=== PATIENT | female | born 1955 | race Caucasian/White ===

== ENCOUNTER 2017-09-05 14:57 | Day surgery (SDC) | payer MEDICARE, OTHER ==
[~2017-09-05] VITALS: Ht 162.6 cm; Wt 78.5 kg
[~2017-09-05 14:57] MED LIST: ALBU90OI INH; ASPI81CH PO; Anti-Diarrhea2 MG; Aspirin EC81 MG PO; BUDE6HFA; CHOL10002 PO; DOCU100 PO; FERROUS SULFATE PO; FURO20 PO; GABA800 PO; Humalog100 UNIT/1 SC; INSUASPI SC; INSULANI SC; INSULANPEN SC; LEVO750 PO; LOSA25 PO; LOSA50 PO; MAGOXI400; METF500 PO; METO100ER PO; Metoprolol Tart50 MG PO; Norco 5-325 Ta1 EACH PO; OMEP40CA12 PO; ONDA4ODT PO; OXYC5 PO; Omeprazole20 M1; PIOG15 PO; Prozac20 MG PO; SPIRIVA RESPIMAT4 G1; TOCO400 PO; TOUJEO SOL300 UNIT/1; TOUJEO SOL300 UNIT/1 SQ; TRAZ100 PO; TRAZ50 PO; WARF1 PO; WARF5 PO; WATER PILL
[2017-10-24] MEDS ORDERED: BUDE6HFA INH (11:42)
[2017-10-24] MEDS ORDERED: INSDET100 (11:43)
== END 2017-09-05 17:05 | disposition home or self-care (01) ==
LOC: ORSCSDS 14:57
PROVIDERS: Ophthalmology
PROC: 08RK3JZ Replacement of Left Lens with Synthetic Substitute, Percutaneous Approach (ICD-10-PCS; principal; 2017-09-05 16:30)
DX: H25.12 Age-related nuclear cataract, left eye (principal); H21.81 Floppy iris syndrome; I10 Essential (primary) hypertension; J44.9 Chronic obstructive pulmonary disease, unspecified; Z99.81 Dependence on supplemental oxygen; E11.9 Type 2 diabetes mellitus without complications; Z79.899 Other long term (current) drug therapy; Z79.01 Long term (current) use of anticoagulants
CPT/HCPCS: 82947; J2250; J3010; J7040; V2632

== ENCOUNTER 2017-09-27 12:49 | Emergency (ER) | payer MEDICARE, OTHER ==
[~2017-09-27] VITALS: Ht 162.6 cm; Wt 78.5 kg
[2017-09-27 13:59] LABS: BASOPHILS ABSOLUTE AUTO 0.03 K/mm3 (0.00-0.23); BASOPHILS PERCENT AUTO 0 % (0-2); EOSINOPHILS ABSOLUTE AUTO 0.09 K/mm3 (0.00-0.68); EOSINOPHILS PERCENT AUTO 1 % (0-6); Hematocrit 28.5 % (33.0-51.0); Hemoglobin 9.2 g/dL (11.5-16.0); IMMATURE GRAN ABSOLUTE AUTO 0.03 K/mm3 (0.00-0.10); IMMATURE GRAN PERCENT AUTO 0 % (0-1); LYMPHOCYTES ABSOLUTE AUTO 1.27 K/mm3 (0.84-5.20); LYMPHOCYTES PERCENT AUTO 12 % (21-46); MONOCYTES ABSOLUTE AUTO 0.92 K/mm3 (0.16-1.47); MONOCYTES PERCENT AUTO 8 % (4-13); Mean Corpuscular HGB 28.6 pg (26.0-34.0); Mean Corpuscular HGB Conc 32.3 g/dL (31.5-36.5); Mean Corpuscular Volume 89 fL (80-100); Mean Platelet Volume 10.4 fL (9.1-12.4); NEUTROPHILS ABSOLUTE AUTO 8.57 K/mm3 (1.96-9.15); NEUTROPHILS PERCENT AUTO 79 % (41-73); Platelet Count 250 K/mm3 (150-400); RDW Coefficient Variation 13.2 % (11.7-14.2); Red Blood Cell Count 3.22 M/mm3 (3.80-5.20); White Blood Cell Count 10.91 K/mm3 (4.00-11.30)
[2017-09-27 14:13] LABS: Source, Urine Clean Catch
[2017-09-27 14:16] LABS: International Normalized Ratio 3.86; Prothrombin Time Results 41.9 Sec (9.7-11.5)
[2017-09-27 14:19] LABS: Appearance, Urine Clear (Clear); Blood, Urine 4+ (Neg); Color, Urine Yellow (P-Yellow); Glucose Qualitative, Urine 4+ (Neg); Ketones, Urine Neg (Neg); Leukocyte Esterase, Urine 1+ (Neg); Nitrite, Urine Neg (Neg); Protein, Urine 3+ (Neg); Specific Gravity, Urine 1.015 (1.003-1.022); Urobilinogen, Urine NORM (Normal)
[2017-09-27 14:21] LABS: Alanine Aminotransfer (ALT/SGP 12 U/L (12-78); Albumin, Blood 2.7 g/dL (3.4-5.0); Albumin/Globulin Ratio 0.6 (0.8-1.8); Alk Phos 59 U/L (50-136); Anion Gap 6 mmol/L (6-16); Aspartate Aminotrans (AST/SGOT 14 U/L (12-37); Bilirubin, Total 0.4 mg/dL (0.1-1.0); Blood Urea Nitrogen 18 mg/dL (8-24); Bun/Creatinine Ratio 16.2 (12.0-20.0); CO2, Blood 28 mmol/L (21-32); Calcium, Blood 8.2 mg/dL (8.5-10.1); Chloride, Blood 99 mmol/L (98-108); Creatinine, Blood 1.11 mg/dL (0.40-1.00); Globulin, Blood 4.3 g/dL (2.2-4.0); Glomerular Filtration Rate 53 (60-); Glucose, Blood 129 mg/dL (70-99); Potassium, Blood 4.8 mmol/L (3.5-5.5); Sodium, Blood 133 mmol/L (136-145); Troponin I <0.015 ng/mL (0.000-0.040)
[2017-09-27 14:29] LABS: Bilirubin, Urine 1+ (Neg)
[2017-09-27 14:31] LABS: Bacteria Few /hpf; Squamous Epithelial Cells Few /hpf (Few)
[2017-10-24] MEDS ORDERED: BUDE6HFA INH (11:42)
[2017-10-24] MEDS ORDERED: INSDET100 (11:43)
== END 2017-09-27 16:34 | disposition home or self-care (01) ==
LOC: ER 12:49
PROVIDERS: Physician Assistant
DX: R53.1 Weakness (principal); E11.9 Type 2 diabetes mellitus without complications; D64.9 Anemia, unspecified; Z87.891 Personal history of nicotine dependence; Z88.6 Allergy status to analgesic agent; Z88.0 Allergy status to penicillin; Z79.4 Long term (current) use of insulin; Z79.51 Long term (current) use of inhaled steroids; Z79.01 Long term (current) use of anticoagulants; Z79.899 Other long term (current) drug therapy
CPT/HCPCS: 71046; 80053; 81001; 82607; 82746; 84484; 85025; 85610; 87086; 93005; 93010; 99283

== ENCOUNTER 2017-10-13 22:24 | Emergency (ER) | payer MEDICARE, OTHER ==
[~2017-10-13] VITALS: Ht 162.6 cm; Wt 77.1 kg
[2017-10-24] MEDS ORDERED: BUDE6HFA INH (11:42)
[2017-10-24] MEDS ORDERED: INSDET100 (11:43)
== END 2017-10-14 00:42 | disposition home or self-care (01) ==
LOC: ER 22:24
DX: S79.911A Unspecified injury of right hip, initial encounter (principal); E11.9 Type 2 diabetes mellitus without complications; D64.9 Anemia, unspecified; Z87.891 Personal history of nicotine dependence; Z88.0 Allergy status to penicillin; Z88.8 Allergy status to other drugs, medicaments and biological substances; Z79.4 Long term (current) use of insulin; Z79.01 Long term (current) use of anticoagulants; Z79.51 Long term (current) use of inhaled steroids; Z79.899 Other long term (current) drug therapy; Z89.519 Acquired absence of unspecified leg below knee; W18.11XA Fall from or off toilet without subsequent striking against object, initial encounter
CPT/HCPCS: 73552; 99283

== ENCOUNTER 2017-10-14 13:06 | Observation (INO) | payer MEDICARE, OTHER ==
[~2017-10-14] VITALS: Ht 162.6 cm; Wt 82.2 kg
[2017-10-14 13:31] LABS: Hematocrit 26.3 % (33.0-51.0); Hemoglobin 8.6 g/dL (11.5-16.0); Mean Corpuscular HGB Conc 32.7 g/dL (31.5-36.5); Mean Platelet Volume 10.3 fL (9.1-12.4); Platelet Count 429 K/mm3 (150-400); RDW Coefficient Variation 14.3 % (11.7-14.2); RDW Standard Deviation 42.8 fL (35.1-46.3); Red Blood Cell Count 3.19 M/mm3 (3.80-5.20); White Blood Cell Count 16.48 K/mm3 (4.00-11.30)
[2017-10-14 13:37] LABS: Mean Corpuscular Volume 82 fL (80-100)
[2017-10-14 13:45] LABS: Albumin, Blood 2.2 g/dL (3.4-5.0); Albumin/Globulin Ratio 0.4 (0.8-1.8); Bilirubin, Total 0.5 mg/dL (0.1-1.0); Bun/Creatinine Ratio 27.8 (12.0-20.0); Calcium, Blood 8.5 mg/dL (8.5-10.1); Creatinine, Blood 1.08 mg/dL (0.40-1.00); Globulin, Blood 5.2 g/dL (2.2-4.0); Potassium, Blood 3.4 mmol/L (3.5-5.5); Total Protein, Blood 7.4 g/dL (6.4-8.2)
[2017-10-14 14:16] LABS: Appearance, Urine Hazy (Clear); Blood, Urine 5+ (Neg); Color, Urine Yellow (P-Yellow); Glucose Qualitative, Urine 3+ (Neg); Ketones, Urine 2+ (Neg); Leukocyte Esterase, Urine 1+ (Neg); Nitrite, Urine Neg (Neg); Protein, Urine 3+ (Neg); Urobilinogen, Urine 2+ (Normal)
[2017-10-14 14:22] LABS: BASOPHILS PERCENT MAN 0 % (0-2); EOSINOPHILS PERCENT MAN 0 % (0-6); LYMPHOCYTES ABSOLUTE MAN 0.32 K/mm3 (0.84-5.20); LYMPHOCYTES PERCENT MAN 2 % (21-46); MONOCYTES ABSOLUTE MAN 0.98 K/mm3 (0.16-1.47); MONOCYTES PERCENT MAN 6 % (4-13); NEUTROPHILS ABSOLUTE MAN 15.16 K/mm3 (1.96-9.15); SEG NEUTROPHILS PERCENT MAN 92 % (41-73); TOTAL CELLS COUNTED 100
[2017-10-14 14:28] LABS: Prothrombin Time Results >148.7 Sec (9.7-11.5)
[2017-10-14 14:34] LABS: International Normalized Ratio No Calc
[2017-10-14 14:38] LABS: Bilirubin, Urine 2+ (Neg)
[2017-10-14 14:39] LABS: Bacteria Many /hpf; Red Blood Cells, Urine 25-50 /hpf (0-2); Squamous Epithelial Cells Mod /hpf (Few)
[2017-10-14 14:40] LABS: Hyaline Casts 0-2 /lpf (0-2)
[2017-10-15 05:23] LABS: BASOPHILS ABSOLUTE AUTO 0.01 K/mm3 (0.00-0.23); BASOPHILS PERCENT AUTO 0 % (0-2); EOSINOPHILS ABSOLUTE AUTO 0.08 K/mm3 (0.00-0.68); EOSINOPHILS PERCENT AUTO 1 % (0-6); Hematocrit 22.6 % (33.0-51.0); Hemoglobin 7.1 g/dL (11.5-16.0); IMMATURE GRAN ABSOLUTE AUTO 0.11 K/mm3 (0.00-0.10); IMMATURE GRAN PERCENT AUTO 1 % (0-1); LYMPHOCYTES ABSOLUTE AUTO 0.64 K/mm3 (0.84-5.20); LYMPHOCYTES PERCENT AUTO 6 % (21-46); MONOCYTES ABSOLUTE AUTO 0.78 K/mm3 (0.16-1.47); MONOCYTES PERCENT AUTO 7 % (4-13); Mean Corpuscular HGB 26.3 pg (26.0-34.0); Mean Corpuscular HGB Conc 31.4 g/dL (31.5-36.5); Mean Corpuscular Volume 84 fL (80-100); Mean Platelet Volume 10.2 fL (9.1-12.4); NEUTROPHILS ABSOLUTE AUTO 10.05 K/mm3 (1.96-9.15); NEUTROPHILS PERCENT AUTO 86 % (41-73); Platelet Count 365 K/mm3 (150-400); RDW Coefficient Variation 14.4 % (11.7-14.2); RDW Standard Deviation 44.3 fL (35.1-46.3); White Blood Cell Count 11.67 K/mm3 (4.00-11.30)
[2017-10-15 05:36] LABS: International Normalized Ratio 2.1; Prothrombin Time Results 22.4 Sec (9.7-11.5)
[2017-10-15 06:19] LABS: Anion Gap 9 mmol/L (6-16); Blood Urea Nitrogen 29 mg/dL (8-24); Bun/Creatinine Ratio 34.9 (12.0-20.0); CO2, Blood 25 mmol/L (21-32); Calcium, Blood 7.9 mg/dL (8.5-10.1); Chloride, Blood 97 mmol/L (98-108); Creatinine, Blood 0.83 mg/dL (0.40-1.00); Glomerular Filtration Rate >60 (60-); Glucose, Blood 274 mg/dL (70-99); Potassium, Blood 3.5 mmol/L (3.5-5.5); Sodium, Blood 131 mmol/L (136-145)
[2017-10-16 05:29] LABS: BASOPHILS ABSOLUTE AUTO 0.02 K/mm3 (0.00-0.23); BASOPHILS PERCENT AUTO 0 % (0-2); EOSINOPHILS ABSOLUTE AUTO 0.11 K/mm3 (0.00-0.68); EOSINOPHILS PERCENT AUTO 1 % (0-6); Hematocrit 21.7 % (33.0-51.0); Hemoglobin 6.9 g/dL (11.5-16.0); IMMATURE GRAN ABSOLUTE AUTO 0.21 K/mm3 (0.00-0.10); IMMATURE GRAN PERCENT AUTO 2 % (0-1); LYMPHOCYTES ABSOLUTE AUTO 0.94 K/mm3 (0.84-5.20); LYMPHOCYTES PERCENT AUTO 9 % (21-46); MONOCYTES ABSOLUTE AUTO 0.83 K/mm3 (0.16-1.47); MONOCYTES PERCENT AUTO 8 % (4-13); Mean Corpuscular HGB 26.7 pg (26.0-34.0); Mean Corpuscular HGB Conc 31.8 g/dL (31.5-36.5); Mean Corpuscular Volume 84 fL (80-100); Mean Platelet Volume 10.6 fL (9.1-12.4); NEUTROPHILS ABSOLUTE AUTO 8.81 K/mm3 (1.96-9.15); NEUTROPHILS PERCENT AUTO 81 % (41-73); Platelet Count 342 K/mm3 (150-400); RDW Coefficient Variation 14.8 % (11.7-14.2); RDW Standard Deviation 45.1 fL (35.1-46.3); Red Blood Cell Count 2.58 M/mm3 (3.80-5.20); White Blood Cell Count 10.92 K/mm3 (4.00-11.30)
[2017-10-16 06:28] LABS: Alanine Aminotransfer (ALT/SGP 13 U/L (12-78); Albumin, Blood 1.6 g/dL (3.4-5.0); Albumin/Globulin Ratio 0.3 (0.8-1.8); Alk Phos 59 U/L (50-136); Anion Gap 8 mmol/L (6-16); Aspartate Aminotrans (AST/SGOT 15 U/L (12-37); Bilirubin, Total 0.2 mg/dL (0.1-1.0); Blood Urea Nitrogen 25 mg/dL (8-24); CO2, Blood 24 mmol/L (21-32); Calcium, Blood 7.9 mg/dL (8.5-10.1); Chloride, Blood 98 mmol/L (98-108); Creatinine, Blood 0.86 mg/dL (0.40-1.00); Globulin, Blood 4.7 g/dL (2.2-4.0); Glomerular Filtration Rate >60 (60-); Glucose, Blood 378 mg/dL (70-99); Potassium, Blood 3.7 mmol/L (3.5-5.5); Sodium, Blood 130 mmol/L (136-145); Total Protein, Blood 6.3 g/dL (6.4-8.2)
[2017-10-17 05:05] LABS: BASOPHILS ABSOLUTE AUTO 0.03 K/mm3 (0.00-0.23); BASOPHILS PERCENT AUTO 0 % (0-2); EOSINOPHILS ABSOLUTE AUTO 0.14 K/mm3 (0.00-0.68); EOSINOPHILS PERCENT AUTO 1 % (0-6); Hematocrit 25.1 % (33.0-51.0); Hemoglobin 8.1 g/dL (11.5-16.0); IMMATURE GRAN ABSOLUTE AUTO 0.28 K/mm3 (0.00-0.10); IMMATURE GRAN PERCENT AUTO 2 % (0-1); LYMPHOCYTES ABSOLUTE AUTO 1.22 K/mm3 (0.84-5.20); LYMPHOCYTES PERCENT AUTO 9 % (21-46); MONOCYTES ABSOLUTE AUTO 0.96 K/mm3 (0.16-1.47); MONOCYTES PERCENT AUTO 7 % (4-13); Mean Corpuscular HGB 26.7 pg (26.0-34.0); Mean Corpuscular HGB Conc 32.3 g/dL (31.5-36.5); Mean Corpuscular Volume 83 fL (80-100); Mean Platelet Volume 10.2 fL (9.1-12.4); NEUTROPHILS ABSOLUTE AUTO 10.49 K/mm3 (1.96-9.15); NEUTROPHILS PERCENT AUTO 80 % (41-73); Platelet Count 315 K/mm3 (150-400); RDW Coefficient Variation 15.1 % (11.7-14.2); RDW Standard Deviation 45.7 fL (35.1-46.3); Red Blood Cell Count 3.03 M/mm3 (3.80-5.20); White Blood Cell Count 13.12 K/mm3 (4.00-11.30)
[2017-10-17 05:30] LABS: Alanine Aminotransfer (ALT/SGP 14 U/L (12-78); Albumin, Blood 1.5 g/dL (3.4-5.0); Albumin/Globulin Ratio 0.3 (0.8-1.8); Alk Phos 68 U/L (50-136); Anion Gap 7 mmol/L (6-16); Aspartate Aminotrans (AST/SGOT 17 U/L (12-37); Bilirubin, Total 0.6 mg/dL (0.1-1.0); Blood Urea Nitrogen 27 mg/dL (8-24); Bun/Creatinine Ratio 35.2 (12.0-20.0); CO2, Blood 24 mmol/L (21-32); Calcium, Blood 7.9 mg/dL (8.5-10.1); Chloride, Blood 98 mmol/L (98-108); Creatinine, Blood 0.77 mg/dL (0.40-1.00); Globulin, Blood 4.7 g/dL (2.2-4.0); Glomerular Filtration Rate >60 (60-); Glucose, Blood 214 mg/dL (70-99); Potassium, Blood 3.9 mmol/L (3.5-5.5); Sodium, Blood 129 mmol/L (136-145); Total Protein, Blood 6.2 g/dL (6.4-8.2)
[2017-10-18 05:13] LABS: BASOPHILS ABSOLUTE AUTO 0.02 K/mm3 (0.00-0.23); BASOPHILS PERCENT AUTO 0 % (0-2); EOSINOPHILS ABSOLUTE AUTO 0.05 K/mm3 (0.00-0.68); EOSINOPHILS PERCENT AUTO 0 % (0-6); Hematocrit 22.6 % (33.0-51.0); Hemoglobin 7.4 g/dL (11.5-16.0); IMMATURE GRAN ABSOLUTE AUTO 0.23 K/mm3 (0.00-0.10); IMMATURE GRAN PERCENT AUTO 2 % (0-1); LYMPHOCYTES PERCENT AUTO 6 % (21-46); MONOCYTES PERCENT AUTO 7 % (4-13); Mean Corpuscular HGB 26.7 pg (26.0-34.0); Mean Corpuscular HGB Conc 32.7 g/dL (31.5-36.5); Mean Corpuscular Volume 82 fL (80-100); Mean Platelet Volume 10.2 fL (9.1-12.4); NEUTROPHILS ABSOLUTE AUTO 12.06 K/mm3 (1.96-9.15); NEUTROPHILS PERCENT AUTO 85 % (41-73); NRBC ABSOLUTE 0.02 K/mm3 (0.00-0.02); NRBC Auto 0.1 /100 WBC (0.0-0.2); Platelet Count 314 K/mm3 (150-400); RDW Coefficient Variation 14.6 % (11.7-14.2); RDW Standard Deviation 43.5 fL (35.1-46.3); Red Blood Cell Count 2.77 M/mm3 (3.80-5.20); White Blood Cell Count 14.26 K/mm3 (4.00-11.30)
[2017-10-18 05:27] LABS: International Normalized Ratio 1.39; Prothrombin Time Results 14.6 Sec (9.7-11.5)
[2017-10-18 14:16] LABS: Stool Occult Blood Guaiac 1 Pos (Neg)
[2017-10-19 07:20] LABS: Stool Occult Blood Guaiac 1 Pos (Neg)
[2017-10-19] MEDS ORDERED: INSDET100 SC (11:00)
[2017-10-19] MEDS ORDERED: ACET325 PO (11:01)
[2017-10-19] MEDS ORDERED: LIDOCARE1 EACH TOP (11:02)
[2017-10-19] MEDS ORDERED: INSU100I6 SC (11:03)
[2017-10-19] MEDS ORDERED: LEVFLO500 PO (11:04)
[2017-10-24] MEDS ORDERED: BUDE6HFA INH (11:42)
[2017-10-24] MEDS ORDERED: INSDET100 (11:43)
== END 2017-10-19 12:46 | disposition home or self-care (01) ==
LOC: ER 13:06 → MEDS 13:07
PROVIDERS: Internal Medicine; Internal Medicine Gastroenterology
DX: D64.9 Anemia, unspecified (principal); N17.9 Acute kidney failure, unspecified; D68.32 Hemorrhagic disorder due to extrinsic circulating anticoagulants; F11.90 Opioid use, unspecified, uncomplicated; T45.515A Adverse effect of anticoagulants, initial encounter; E86.0 Dehydration; N39.0 Urinary tract infection, site not specified; I10 Essential (primary) hypertension; E66.9 Obesity, unspecified; J44.9 Chronic obstructive pulmonary disease, unspecified; E78.00 Pure hypercholesterolemia, unspecified; D72.829 Elevated white blood cell count, unspecified; R41.82 Altered mental status, unspecified; R29.6 Repeated falls; M65.9 Synovitis and tenosynovitis, unspecified; G47.33 Obstructive sleep apnea (adult) (pediatric); I51.81 Takotsubo syndrome; E11.51 Type 2 diabetes mellitus with diabetic peripheral angiopathy without gangrene; Z89.611 Acquired absence of right leg above knee; Z85.528 Personal history of other malignant neoplasm of kidney; Z98.890 Other specified postprocedural states; Z87.730 Personal history of (corrected) cleft lip and palate; Z98.41 Cataract extraction status, right eye; Z98.42 Cataract extraction status, left eye; Z88.0 Allergy status to penicillin; Z79.899 Other long term (current) drug therapy; Z79.4 Long term (current) use of insulin; Z87.891 Personal history of nicotine dependence; Z86.73 Personal history of transient ischemic attack (TIA), and cerebral infarction without residual deficits; Z92.21 Personal history of antineoplastic chemotherapy; Z88.8 Allergy status to other drugs, medicaments and biological substances; Z79.01 Long term (current) use of anticoagulants; Z74.09 Other reduced mobility; Z79.2 Long term (current) use of antibiotics; Z85.038 Personal history of other malignant neoplasm of large intestine; Z68.29 Body mass index [BMI] 29.0-29.9, adult; Z96.1 Presence of intraocular lens
CPT/HCPCS: 36415; 36430; 70450; 80048; 80053; 81001; 82270; 82272; 82728; 82947; 83540; 83550; 85025; 85610; 85730; 86850; 86900; 86901; 86923; 87070; 87075; 87076; 87081; 87086; 87147; 87185; 87205; 93005; 93010; 94640; 94760; 97110; 97162; 97166; 97530; 97535; 99285; G0378; G8978; G8979; G8987; G8988; J0696; J1815; J7030; P9016; P9041

== ENCOUNTER → 2018-04-16 | Outpatient (CLI) | payer MEDICARE, OTHER ==
[~2018-04-16] MED LIST changes: +ACET325 PO; +BUDE6HFA INH; +INSDET100; +INSDET100 SC; +INSU100I6 SC; +LEVFLO500 PO; +LIDOCARE1 EACH TOP; +LOSA25; +PIOG15
== END ==
LOC: LAB SHORT 15:30 → LAB 15:30
DX: L89.220 Pressure ulcer of left hip, unstageable (principal); L89.520 Pressure ulcer of left ankle, unstageable; L89.892 Pressure ulcer of other site, stage 2
CPT/HCPCS: 87070; 87075; 87077; 87147; 87186; 87205

== ENCOUNTER 2018-04-23 12:19 | Day surgery (SDC) | payer MEDICARE, OTHER ==
[~2018-04-23] VITALS: Ht 162.6 cm; Wt 79.4 kg
[~2018-04-23 12:19] MED LIST changes: -LOSA25; -PIOG15
[2018-04-23] MEDS ORDERED: LOSA25 (13:15)
[2018-04-23] MEDS ORDERED: PIOG15 (13:20)
== END 2018-04-23 16:17 | disposition home or self-care (01) ==
LOC: ORSCSDS 12:19
DX: D50.9 Iron deficiency anemia, unspecified (principal); K22.70 Barrett's esophagus without dysplasia; K21.9 Gastro-esophageal reflux disease without esophagitis; Q27.33 Arteriovenous malformation of digestive system vessel; I10 Essential (primary) hypertension; I25.10 Atherosclerotic heart disease of native coronary artery without angina pectoris; J44.9 Chronic obstructive pulmonary disease, unspecified; F17.210 Nicotine dependence, cigarettes, uncomplicated; G47.33 Obstructive sleep apnea (adult) (pediatric); I11.9 Hypertensive heart disease without heart failure; Z86.73 Personal history of transient ischemic attack (TIA), and cerebral infarction without residual deficits; E11.9 Type 2 diabetes mellitus without complications; Z79.899 Other long term (current) drug therapy
CPT/HCPCS: 82947; J7120

== ENCOUNTER 2018-04-30 00:01 | Day surgery (SDC) | payer MEDICARE, OTHER ==
[~2018-04-30 00:01] MED LIST changes: +LOSA25; +PIOG15
== END 2018-04-30 22:46 | disposition home or self-care (01) ==
LOC: WOUND 00:01
PROC: 0HBNXZZ Excision of Left Foot Skin, External Approach (ICD-10-PCS; principal; 2018-04-30)
PROC: 0HBJXZZ Excision of Left Upper Leg Skin, External Approach (ICD-10-PCS; principal; 2018-04-30)
PROC: 0HBLXZZ Excision of Left Lower Leg Skin, External Approach (ICD-10-PCS; principal; 2018-04-30)
DX: E11.621 Type 2 diabetes mellitus with foot ulcer (principal); E11.622 Type 2 diabetes mellitus with other skin ulcer; L97.522 Non-pressure chronic ulcer of other part of left foot with fat layer exposed; L97.322 Non-pressure chronic ulcer of left ankle with fat layer exposed; L97.822 Non-pressure chronic ulcer of other part of left lower leg with fat layer exposed; E11.40 Type 2 diabetes mellitus with diabetic neuropathy, unspecified; I10 Essential (primary) hypertension; I63.9 Cerebral infarction, unspecified; J44.9 Chronic obstructive pulmonary disease, unspecified
CPT/HCPCS: G0463

== ENCOUNTER 2018-05-28 00:05 | Day surgery (SDC) | payer MEDICARE, OTHER | END 2018-05-28 23:12 | disposition home or self-care (01) | LOC: WOUND 00:05 | PROC: 0HBNXZZ Excision of Left Foot Skin, External Approach (ICD-10-PCS; principal; 2018-05-28) | DX: E11.621 Type 2 diabetes mellitus with foot ulcer (principal); L97.522 Non-pressure chronic ulcer of other part of left foot with fat layer exposed; L89.323 Pressure ulcer of left buttock, stage 3; E11.40 Type 2 diabetes mellitus with diabetic neuropathy, unspecified; I10 Essential (primary) hypertension ==

== ENCOUNTER 2018-07-14 01:36 | Day surgery (SDC) | payer MEDICARE, OTHER | END 2018-07-14 22:45 | disposition home or self-care (01) | LOC: WOUND 01:36 | DX: E11.621 Type 2 diabetes mellitus with foot ulcer (principal); L89.323 Pressure ulcer of left buttock, stage 3; L97.522 Non-pressure chronic ulcer of other part of left foot with fat layer exposed; Z86.718 Personal history of other venous thrombosis and embolism; Z89.511 Acquired absence of right leg below knee; E11.40 Type 2 diabetes mellitus with diabetic neuropathy, unspecified; Z79.01 Long term (current) use of anticoagulants; I70.229 Atherosclerosis of native arteries of extremities with rest pain, unspecified extremity; R60.9 Edema, unspecified; I10 Essential (primary) hypertension; Z22.322 Carrier or suspected carrier of Methicillin resistant Staphylococcus aureus; Z88.0 Allergy status to penicillin; Z88.6 Allergy status to analgesic agent ==

== ENCOUNTER 2018-07-28 09:15 | Day surgery (SDC) | payer MEDICARE, OTHER | END 2018-07-28 22:43 | disposition home or self-care (01) | LOC: WOUND 09:15 | DX: E11.621 Type 2 diabetes mellitus with foot ulcer (principal); L89.323 Pressure ulcer of left buttock, stage 3; L97.522 Non-pressure chronic ulcer of other part of left foot with fat layer exposed; Z86.718 Personal history of other venous thrombosis and embolism; I73.9 Peripheral vascular disease, unspecified; Z89.511 Acquired absence of right leg below knee; E11.40 Type 2 diabetes mellitus with diabetic neuropathy, unspecified; Z79.01 Long term (current) use of anticoagulants; R60.9 Edema, unspecified; I10 Essential (primary) hypertension; Z22.322 Carrier or suspected carrier of Methicillin resistant Staphylococcus aureus; Z88.0 Allergy status to penicillin; Z88.6 Allergy status to analgesic agent | CPT/HCPCS: G0463 ==

== ENCOUNTER 2018-08-04 09:15 | Day surgery (SDC) | payer MEDICARE, OTHER | END 2018-08-04 22:43 | disposition home or self-care (01) | LOC: WOUND 09:15 | DX: E11.621 Type 2 diabetes mellitus with foot ulcer (principal); L89.323 Pressure ulcer of left buttock, stage 3; L97.522 Non-pressure chronic ulcer of other part of left foot with fat layer exposed; E11.40 Type 2 diabetes mellitus with diabetic neuropathy, unspecified; I70.229 Atherosclerosis of native arteries of extremities with rest pain, unspecified extremity; R60.9 Edema, unspecified; I10 Essential (primary) hypertension; M86.9 Osteomyelitis, unspecified; Z86.718 Personal history of other venous thrombosis and embolism; Z22.322 Carrier or suspected carrier of Methicillin resistant Staphylococcus aureus; Z89.511 Acquired absence of right leg below knee; Z79.01 Long term (current) use of anticoagulants ==

== ENCOUNTER 2018-08-18 09:00 | Day surgery (SDC) | payer MEDICARE, OTHER | END 2018-08-18 22:51 | disposition home or self-care (01) | LOC: WOUND 09:00 | PROC: 0HBNXZZ Excision of Left Foot Skin, External Approach (ICD-10-PCS; principal; 2018-08-18) | PROC: 0HBLXZZ Excision of Left Lower Leg Skin, External Approach (ICD-10-PCS; principal; 2018-08-18) | DX: E11.621 Type 2 diabetes mellitus with foot ulcer (principal); E11.622 Type 2 diabetes mellitus with other skin ulcer; L97.522 Non-pressure chronic ulcer of other part of left foot with fat layer exposed; L97.822 Non-pressure chronic ulcer of other part of left lower leg with fat layer exposed; L89.323 Pressure ulcer of left buttock, stage 3; Z86.718 Personal history of other venous thrombosis and embolism; I73.9 Peripheral vascular disease, unspecified; Z89.511 Acquired absence of right leg below knee; E11.40 Type 2 diabetes mellitus with diabetic neuropathy, unspecified ==

== ENCOUNTER 2018-08-25 09:15 | Day surgery (SDC) | payer MEDICARE, OTHER | END 2018-08-25 23:15 | disposition home or self-care (01) | LOC: WOUND 09:15 | DX: E11.621 Type 2 diabetes mellitus with foot ulcer (principal); L97.522 Non-pressure chronic ulcer of other part of left foot with fat layer exposed; L89.323 Pressure ulcer of left buttock, stage 3; Z86.718 Personal history of other venous thrombosis and embolism; Z89.511 Acquired absence of right leg below knee; E11.40 Type 2 diabetes mellitus with diabetic neuropathy, unspecified; Z79.01 Long term (current) use of anticoagulants; I70.229 Atherosclerosis of native arteries of extremities with rest pain, unspecified extremity; R60.9 Edema, unspecified; I10 Essential (primary) hypertension; Z22.322 Carrier or suspected carrier of Methicillin resistant Staphylococcus aureus; Z88.0 Allergy status to penicillin; Z88.6 Allergy status to analgesic agent; Z79.4 Long term (current) use of insulin ==

== ENCOUNTER 2018-09-01 09:30 | Day surgery (SDC) | payer MEDICARE, OTHER | END 2018-09-01 22:49 | disposition home or self-care (01) | LOC: WOUND 09:30 | DX: I70.245 Atherosclerosis of native arteries of left leg with ulceration of other part of foot (principal); I70.243 Atherosclerosis of native arteries of left leg with ulceration of ankle; E11.621 Type 2 diabetes mellitus with foot ulcer; E11.622 Type 2 diabetes mellitus with other skin ulcer; L97.522 Non-pressure chronic ulcer of other part of left foot with fat layer exposed; L97.322 Non-pressure chronic ulcer of left ankle with fat layer exposed; L89.323 Pressure ulcer of left buttock, stage 3; L92.8 Other granulomatous disorders of the skin and subcutaneous tissue; R60.9 Edema, unspecified; M77.32 Calcaneal spur, left foot; Z86.718 Personal history of other venous thrombosis and embolism; Z89.511 Acquired absence of right leg below knee; E11.40 Type 2 diabetes mellitus with diabetic neuropathy, unspecified; Z79.01 Long term (current) use of anticoagulants; I70.229 Atherosclerosis of native arteries of extremities with rest pain, unspecified extremity; B95.62 Methicillin resistant Staphylococcus aureus infection as the cause of diseases classified elsewhere; I10 Essential (primary) hypertension; Z99.3 Dependence on wheelchair; Z89.611 Acquired absence of right leg above knee ==

== ENCOUNTER 2018-09-08 09:45 | Day surgery (SDC) | payer MEDICARE, OTHER | END 2018-09-08 22:48 | disposition home or self-care (01) | LOC: WOUND 09:45 | PROC: 0HBNXZZ Excision of Left Foot Skin, External Approach (ICD-10-PCS; principal; 2018-09-08) | DX: E11.621 Type 2 diabetes mellitus with foot ulcer (principal); L97.522 Non-pressure chronic ulcer of other part of left foot with fat layer exposed; L89.323 Pressure ulcer of left buttock, stage 3; Z86.718 Personal history of other venous thrombosis and embolism; I10 Essential (primary) hypertension; E11.40 Type 2 diabetes mellitus with diabetic neuropathy, unspecified; I70.229 Atherosclerosis of native arteries of extremities with rest pain, unspecified extremity; R60.9 Edema, unspecified ==

== ENCOUNTER 2018-09-11 14:47 | Day surgery (SDC) | payer MEDICARE, OTHER ==
[~2018-09-11] VITALS: Ht 162.6 cm; Wt 73.0 kg
[2018-09-11] MEDS ORDERED: FISH OIL + D31 EACH PO (15:08)
[2018-09-11] MEDS ORDERED: Apple Cider Vi300 MG PO (15:09)
[2018-09-11] MEDS ORDERED: Cinnamon500 MG PO (15:09)
--- NOTE | 2018-09-11 17:32 | NUR ---
09/11/18 1732 Boris Kurtz LATE ENTRY NARRATIVE PATIENT IS WC BOUND AND RESTING IN HER OWN WC IN SDU. PATIENT VSS, TOLERATING PO FLUIDS AND COOKIES WELL. DISCHARGE INSTRUCTIONS REVIEWED WITH PATIENT, NO QUESTIONS AT THIS TIME. PATIENT'S RIDE CALLED AND NURSE ASSISTED PATIENT OUT TO TRANSPORT.
== END 2018-09-11 16:20 | disposition home or self-care (01) ==
LOC: ORSCSDS 14:47
PROVIDERS: Ophthalmology
PROC: 08RK3JZ Replacement of Left Lens with Synthetic Substitute, Percutaneous Approach (ICD-10-PCS; principal; 2018-09-11 16:30)
DX: H25.11 Age-related nuclear cataract, right eye (principal); H21.81 Floppy iris syndrome; I10 Essential (primary) hypertension; E11.9 Type 2 diabetes mellitus without complications; J44.9 Chronic obstructive pulmonary disease, unspecified; G47.33 Obstructive sleep apnea (adult) (pediatric); Z87.891 Personal history of nicotine dependence; I25.2 Old myocardial infarction; Z86.73 Personal history of transient ischemic attack (TIA), and cerebral infarction without residual deficits; Z79.4 Long term (current) use of insulin; Z79.899 Other long term (current) drug therapy
CPT/HCPCS: 82947; J0360; J2001; J2250; J3010; J7120; V2632

== ENCOUNTER → 2018-09-24 | Outpatient (CLI) | payer MEDICARE, OTHER ==
[~2018-09-24] MED LIST changes: +Apple Cider Vi300 MG PO; +Cinnamon500 MG PO; +FISH OIL + D31 EACH PO
== END | disposition home or self-care (01) ==
LOC: LAB HH 13:30
DX: L89.523 Pressure ulcer of left ankle, stage 3 (principal)
CPT/HCPCS: 87070; 87147; 87205

== ENCOUNTER 2018-10-06 00:40 | Day surgery (SDC) | payer MEDICARE, OTHER | END 2018-10-06 22:53 | disposition home or self-care (01) | LOC: WOUND 00:40 | DX: E11.621 Type 2 diabetes mellitus with foot ulcer (principal); M86.672 Other chronic osteomyelitis, left ankle and foot; L97.522 Non-pressure chronic ulcer of other part of left foot with fat layer exposed; L89.323 Pressure ulcer of left buttock, stage 3; Z86.718 Personal history of other venous thrombosis and embolism; Z89.511 Acquired absence of right leg below knee; E11.40 Type 2 diabetes mellitus with diabetic neuropathy, unspecified; Z79.4 Long term (current) use of insulin; Z79.01 Long term (current) use of anticoagulants; I70.229 Atherosclerosis of native arteries of extremities with rest pain, unspecified extremity; R60.9 Edema, unspecified; I10 Essential (primary) hypertension; Z22.322 Carrier or suspected carrier of Methicillin resistant Staphylococcus aureus; Z88.0 Allergy status to penicillin; Z88.6 Allergy status to analgesic agent ==

== ENCOUNTER 2018-10-13 00:44 | Day surgery (SDC) | payer MEDICARE, OTHER | END 2018-10-13 22:46 | disposition home or self-care (01) | LOC: WOUND 00:44 | DX: E11.621 Type 2 diabetes mellitus with foot ulcer (principal); L97.522 Non-pressure chronic ulcer of other part of left foot with fat layer exposed; L89.323 Pressure ulcer of left buttock, stage 3; E11.69 Type 2 diabetes mellitus with other specified complication; M06.9 Rheumatoid arthritis, unspecified; E11.40 Type 2 diabetes mellitus with diabetic neuropathy, unspecified; D64.9 Anemia, unspecified; J44.9 Chronic obstructive pulmonary disease, unspecified; G47.30 Sleep apnea, unspecified; I25.10 Atherosclerotic heart disease of native coronary artery without angina pectoris; I10 Essential (primary) hypertension; M86.672 Other chronic osteomyelitis, left ankle and foot; I70.229 Atherosclerosis of native arteries of extremities with rest pain, unspecified extremity; Z22.322 Carrier or suspected carrier of Methicillin resistant Staphylococcus aureus; Z86.718 Personal history of other venous thrombosis and embolism; Z89.511 Acquired absence of right leg below knee; Z79.01 Long term (current) use of anticoagulants | CPT/HCPCS: G0463 ==

== ENCOUNTER 2018-10-20 00:40 | Day surgery (SDC) | payer MEDICARE, OTHER | END 2018-10-20 22:51 | disposition home or self-care (01) | LOC: WOUND 00:40 | DX: E11.621 Type 2 diabetes mellitus with foot ulcer (principal); E11.622 Type 2 diabetes mellitus with other skin ulcer; L97.525 Non-pressure chronic ulcer of other part of left foot with muscle involvement without evidence of necrosis; L97.322 Non-pressure chronic ulcer of left ankle with fat layer exposed; L98.419 Non-pressure chronic ulcer of buttock with unspecified severity; E11.40 Type 2 diabetes mellitus with diabetic neuropathy, unspecified; I10 Essential (primary) hypertension; I25.10 Atherosclerotic heart disease of native coronary artery without angina pectoris; J44.9 Chronic obstructive pulmonary disease, unspecified; G47.30 Sleep apnea, unspecified; D64.9 Anemia, unspecified; Z86.718 Personal history of other venous thrombosis and embolism ==

== ENCOUNTER 2018-10-27 00:11 | Day surgery (SDC) | payer MEDICARE, OTHER | END 2018-10-27 23:20 | disposition home or self-care (01) | LOC: WOUND 00:11 | DX: E11.621 Type 2 diabetes mellitus with foot ulcer (principal); E11.622 Type 2 diabetes mellitus with other skin ulcer; L97.323 Non-pressure chronic ulcer of left ankle with necrosis of muscle; L97.522 Non-pressure chronic ulcer of other part of left foot with fat layer exposed; L98.411 Non-pressure chronic ulcer of buttock limited to breakdown of skin; L89.323 Pressure ulcer of left buttock, stage 3; E11.40 Type 2 diabetes mellitus with diabetic neuropathy, unspecified; I70.229 Atherosclerosis of native arteries of extremities with rest pain, unspecified extremity; I25.119 Atherosclerotic heart disease of native coronary artery with unspecified angina pectoris; I10 Essential (primary) hypertension; J44.9 Chronic obstructive pulmonary disease, unspecified; M86.672 Other chronic osteomyelitis, left ankle and foot; D64.9 Anemia, unspecified; G47.30 Sleep apnea, unspecified; Z86.718 Personal history of other venous thrombosis and embolism; Z89.511 Acquired absence of right leg below knee; Z79.01 Long term (current) use of anticoagulants | CPT/HCPCS: G0463 ==

== ENCOUNTER 2018-11-03 09:00 | Day surgery (SDC) | payer MEDICARE, OTHER | END 2018-11-03 22:52 | disposition home or self-care (01) | LOC: WOUND 09:00 | DX: E11.621 Type 2 diabetes mellitus with foot ulcer (principal); E11.622 Type 2 diabetes mellitus with other skin ulcer; L97.525 Non-pressure chronic ulcer of other part of left foot with muscle involvement without evidence of necrosis; L97.322 Non-pressure chronic ulcer of left ankle with fat layer exposed; E11.69 Type 2 diabetes mellitus with other specified complication; L89.323 Pressure ulcer of left buttock, stage 3; M86.672 Other chronic osteomyelitis, left ankle and foot; E11.40 Type 2 diabetes mellitus with diabetic neuropathy, unspecified; E11.51 Type 2 diabetes mellitus with diabetic peripheral angiopathy without gangrene; I70.229 Atherosclerosis of native arteries of extremities with rest pain, unspecified extremity; I10 Essential (primary) hypertension; I25.10 Atherosclerotic heart disease of native coronary artery without angina pectoris; J44.9 Chronic obstructive pulmonary disease, unspecified; D64.9 Anemia, unspecified; Z86.718 Personal history of other venous thrombosis and embolism; Z89.511 Acquired absence of right leg below knee; Z79.01 Long term (current) use of anticoagulants ==

== ENCOUNTER 2018-11-17 08:35 | Day surgery (SDC) | payer MEDICARE, OTHER | END 2018-11-17 22:51 | disposition home or self-care (01) | LOC: WOUND 08:35 | DX: E11.621 Type 2 diabetes mellitus with foot ulcer (principal); L97.522 Non-pressure chronic ulcer of other part of left foot with fat layer exposed; L89.323 Pressure ulcer of left buttock, stage 3; L89.312 Pressure ulcer of right buttock, stage 2; E11.622 Type 2 diabetes mellitus with other skin ulcer; L97.822 Non-pressure chronic ulcer of other part of left lower leg with fat layer exposed; E11.51 Type 2 diabetes mellitus with diabetic peripheral angiopathy without gangrene; E11.40 Type 2 diabetes mellitus with diabetic neuropathy, unspecified; I70.229 Atherosclerosis of native arteries of extremities with rest pain, unspecified extremity; J44.9 Chronic obstructive pulmonary disease, unspecified; G47.30 Sleep apnea, unspecified; I25.10 Atherosclerotic heart disease of native coronary artery without angina pectoris; I10 Essential (primary) hypertension; M06.9 Rheumatoid arthritis, unspecified; Z86.718 Personal history of other venous thrombosis and embolism | CPT/HCPCS: G0463 ==

== ENCOUNTER 2018-11-24 08:40 | Day surgery (SDC) | payer MEDICARE, OTHER | END 2018-11-24 23:10 | disposition home or self-care (01) | LOC: WOUND 08:40 | DX: E11.621 Type 2 diabetes mellitus with foot ulcer (principal); E11.622 Type 2 diabetes mellitus with other skin ulcer; L97.525 Non-pressure chronic ulcer of other part of left foot with muscle involvement without evidence of necrosis; L97.321 Non-pressure chronic ulcer of left ankle limited to breakdown of skin; L89.323 Pressure ulcer of left buttock, stage 3; L89.312 Pressure ulcer of right buttock, stage 2; E11.69 Type 2 diabetes mellitus with other specified complication; M86.672 Other chronic osteomyelitis, left ankle and foot; E11.51 Type 2 diabetes mellitus with diabetic peripheral angiopathy without gangrene; I70.229 Atherosclerosis of native arteries of extremities with rest pain, unspecified extremity; E11.40 Type 2 diabetes mellitus with diabetic neuropathy, unspecified; I10 Essential (primary) hypertension; Z86.718 Personal history of other venous thrombosis and embolism; Z79.01 Long term (current) use of anticoagulants; Z22.322 Carrier or suspected carrier of Methicillin resistant Staphylococcus aureus; Z89.511 Acquired absence of right leg below knee | CPT/HCPCS: 82947 ==

== ENCOUNTER 2018-12-01 09:00 | Day surgery (SDC) | payer MEDICARE, OTHER | END 2018-12-01 22:48 | disposition home or self-care (01) | LOC: WOUND 09:00 | DX: E11.621 Type 2 diabetes mellitus with foot ulcer (principal); L97.522 Non-pressure chronic ulcer of other part of left foot with fat layer exposed; E11.622 Type 2 diabetes mellitus with other skin ulcer; L97.322 Non-pressure chronic ulcer of left ankle with fat layer exposed; L97.822 Non-pressure chronic ulcer of other part of left lower leg with fat layer exposed; L89.323 Pressure ulcer of left buttock, stage 3; L89.312 Pressure ulcer of right buttock, stage 2; M86.672 Other chronic osteomyelitis, left ankle and foot; E11.40 Type 2 diabetes mellitus with diabetic neuropathy, unspecified; I70.229 Atherosclerosis of native arteries of extremities with rest pain, unspecified extremity; I10 Essential (primary) hypertension; Z86.718 Personal history of other venous thrombosis and embolism; Z89.511 Acquired absence of right leg below knee; Z79.01 Long term (current) use of anticoagulants; Z22.322 Carrier or suspected carrier of Methicillin resistant Staphylococcus aureus ==

== ENCOUNTER 2018-12-08 00:14 | Day surgery (SDC) | payer MEDICARE, OTHER | END 2018-12-08 23:04 | disposition home or self-care (01) | LOC: WOUND 00:14 | DX: E11.621 Type 2 diabetes mellitus with foot ulcer (principal); L97.522 Non-pressure chronic ulcer of other part of left foot with fat layer exposed; L97.322 Non-pressure chronic ulcer of left ankle with fat layer exposed; L89.323 Pressure ulcer of left buttock, stage 3; L89.312 Pressure ulcer of right buttock, stage 2; M86.672 Other chronic osteomyelitis, left ankle and foot; E11.51 Type 2 diabetes mellitus with diabetic peripheral angiopathy without gangrene; I70.229 Atherosclerosis of native arteries of extremities with rest pain, unspecified extremity; E11.36 Type 2 diabetes mellitus with diabetic cataract; J44.9 Chronic obstructive pulmonary disease, unspecified; G47.30 Sleep apnea, unspecified; I25.119 Atherosclerotic heart disease of native coronary artery with unspecified angina pectoris; I10 Essential (primary) hypertension; M06.9 Rheumatoid arthritis, unspecified; E11.40 Type 2 diabetes mellitus with diabetic neuropathy, unspecified; Z86.718 Personal history of other venous thrombosis and embolism ==

== ENCOUNTER 2018-12-15 09:00 | Day surgery (SDC) | payer MEDICARE, OTHER | END 2018-12-15 22:45 | disposition home or self-care (01) | LOC: WOUND 09:00 | DX: E11.621 Type 2 diabetes mellitus with foot ulcer (principal); E11.622 Type 2 diabetes mellitus with other skin ulcer; L97.322 Non-pressure chronic ulcer of left ankle with fat layer exposed; L97.529 Non-pressure chronic ulcer of other part of left foot with unspecified severity; L89.323 Pressure ulcer of left buttock, stage 3; L89.312 Pressure ulcer of right buttock, stage 2; E11.51 Type 2 diabetes mellitus with diabetic peripheral angiopathy without gangrene; I70.229 Atherosclerosis of native arteries of extremities with rest pain, unspecified extremity; E11.69 Type 2 diabetes mellitus with other specified complication; M86.672 Other chronic osteomyelitis, left ankle and foot; E11.40 Type 2 diabetes mellitus with diabetic neuropathy, unspecified; I10 Essential (primary) hypertension; J44.9 Chronic obstructive pulmonary disease, unspecified; I25.10 Atherosclerotic heart disease of native coronary artery without angina pectoris; D64.9 Anemia, unspecified; G47.33 Obstructive sleep apnea (adult) (pediatric); Z86.718 Personal history of other venous thrombosis and embolism; Z89.511 Acquired absence of right leg below knee; Z79.899 Other long term (current) drug therapy; Z79.01 Long term (current) use of anticoagulants; Z22.322 Carrier or suspected carrier of Methicillin resistant Staphylococcus aureus | CPT/HCPCS: G0463 ==

== ENCOUNTER 2018-12-29 09:00 | Day surgery (SDC) | payer MEDICARE, OTHER ==
[~2018-12-29 09:00] MED LIST changes: -FERROUS SULFATE PO; +Ferrous Sulfat325 M2 PO; +GABA300 PO; +Humalog100 UNIT/3 SC; -INSU100I6 SC; -LOSA25; +METO100 PO; -METO100ER PO
== END 2018-12-29 22:53 | disposition home or self-care (01) ==
LOC: WOUND 09:00
DX: E11.622 Type 2 diabetes mellitus with other skin ulcer (principal); L97.822 Non-pressure chronic ulcer of other part of left lower leg with fat layer exposed; L89.323 Pressure ulcer of left buttock, stage 3; L89.312 Pressure ulcer of right buttock, stage 2; E11.51 Type 2 diabetes mellitus with diabetic peripheral angiopathy without gangrene; I70.229 Atherosclerosis of native arteries of extremities with rest pain, unspecified extremity; E11.69 Type 2 diabetes mellitus with other specified complication; M86.672 Other chronic osteomyelitis, left ankle and foot; E11.621 Type 2 diabetes mellitus with foot ulcer; E11.40 Type 2 diabetes mellitus with diabetic neuropathy, unspecified; I10 Essential (primary) hypertension; Z86.718 Personal history of other venous thrombosis and embolism; Z89.511 Acquired absence of right leg below knee; Z22.322 Carrier or suspected carrier of Methicillin resistant Staphylococcus aureus
CPT/HCPCS: G0463

== ENCOUNTER 2019-01-03 15:21 | Observation (INO) | payer MEDICARE, OTHER ==
[~2019-01-03] VITALS: Ht 162.6 cm; Wt 70.6 kg
[2019-01-03 15:55] LABS: BASOPHILS ABSOLUTE AUTO 0.04 K/mm3 (0.00-0.23); BASOPHILS PERCENT AUTO 1 % (0-2); EOSINOPHILS ABSOLUTE AUTO 0.18 K/mm3 (0.00-0.68); EOSINOPHILS PERCENT AUTO 3 % (0-6); Hematocrit 33.8 % (33.0-51.0); Hemoglobin 10.9 g/dL (11.5-16.0); IMMATURE GRAN ABSOLUTE AUTO 0.02 K/mm3 (0.00-0.10); IMMATURE GRAN PERCENT AUTO 0 % (0-1); LYMPHOCYTES ABSOLUTE AUTO 1.54 K/mm3 (0.84-5.20); LYMPHOCYTES PERCENT AUTO 22 % (21-46); MONOCYTES ABSOLUTE AUTO 0.56 K/mm3 (0.16-1.47); MONOCYTES PERCENT AUTO 8 % (4-13); Mean Corpuscular HGB 28.2 pg (26.0-34.0); Mean Corpuscular HGB Conc 32.2 g/dL (31.5-36.5); Mean Corpuscular Volume 88 fL (80-100); Mean Platelet Volume 10.8 fL (9.1-12.4); NEUTROPHILS ABSOLUTE AUTO 4.77 K/mm3 (1.96-9.15); NEUTROPHILS PERCENT AUTO 67 % (41-73); Platelet Count 224 K/mm3 (150-400); RDW Coefficient Variation 13.5 % (11.7-14.2); RDW Standard Deviation 43.1 fL (35.1-46.3); Red Blood Cell Count 3.86 M/mm3 (3.80-5.20); White Blood Cell Count 7.11 K/mm3 (4.00-11.30)
[2019-01-03 16:08] LABS: Alanine Aminotransfer (ALT/SGP 10 U/L (12-78); Albumin, Blood 2.6 g/dL (3.4-5.0); Albumin/Globulin Ratio 0.6 (0.8-1.8); Alk Phos 132 U/L (50-136); Anion Gap 6 mmol/L (6-16); Aspartate Aminotrans (AST/SGOT 14 U/L (12-37); Bilirubin, Total 0.4 mg/dL (0.1-1.0); Blood Urea Nitrogen 9 mg/dL (8-24); Bun/Creatinine Ratio 12.9 (12.0-20.0); CO2, Blood 27 mmol/L (21-32); Calcium, Blood 8.4 mg/dL (8.5-10.1); Chloride, Blood 100 mmol/L (98-108); Globulin, Blood 4.1 g/dL (2.2-4.0); Glomerular Filtration Rate >60 (60-); Glucose, Blood 257 mg/dL (70-99); Potassium, Blood 3.6 mmol/L (3.5-5.5); Sodium, Blood 133 mmol/L (136-145); Total Protein, Blood 6.7 g/dL (6.4-8.2); Troponin I <0.015 ng/mL (0.000-0.040)
[2019-01-03] MEDS ORDERED: CLON.1 PO (17:05)
[2019-01-04 04:42] LABS: BASOPHILS ABSOLUTE AUTO 0.04 K/mm3 (0.00-0.23); BASOPHILS PERCENT AUTO 1 % (0-2); EOSINOPHILS ABSOLUTE AUTO 0.21 K/mm3 (0.00-0.68); EOSINOPHILS PERCENT AUTO 4 % (0-6); Hematocrit 30.8 % (33.0-51.0); Hemoglobin 9.8 g/dL (11.5-16.0); IMMATURE GRAN ABSOLUTE AUTO 0.01 K/mm3 (0.00-0.10); IMMATURE GRAN PERCENT AUTO 0 % (0-1); LYMPHOCYTES ABSOLUTE AUTO 1.65 K/mm3 (0.84-5.20); LYMPHOCYTES PERCENT AUTO 31 % (21-46); MONOCYTES ABSOLUTE AUTO 0.53 K/mm3 (0.16-1.47); MONOCYTES PERCENT AUTO 10 % (4-13); Mean Corpuscular HGB 28.1 pg (26.0-34.0); Mean Corpuscular HGB Conc 31.8 g/dL (31.5-36.5); Mean Corpuscular Volume 88 fL (80-100); Mean Platelet Volume 10.8 fL (9.1-12.4); NEUTROPHILS ABSOLUTE AUTO 2.94 K/mm3 (1.96-9.15); NEUTROPHILS PERCENT AUTO 55 % (41-73); Platelet Count 191 K/mm3 (150-400); RDW Coefficient Variation 13.7 % (11.7-14.2); RDW Standard Deviation 44.5 fL (35.1-46.3); Red Blood Cell Count 3.49 M/mm3 (3.80-5.20); White Blood Cell Count 5.38 K/mm3 (4.00-11.30)
[2019-01-04 04:55] LABS: International Normalized Ratio 0.99; Prothrombin Time Results 10.5 Sec (9.7-11.5)
[2019-01-04 04:57] LABS: Anion Gap 4 mmol/L (6-16); Blood Urea Nitrogen 12 mg/dL (8-24); Bun/Creatinine Ratio 13.3 (12.0-20.0); CO2, Blood 28 mmol/L (21-32); Calcium, Blood 8.3 mg/dL (8.5-10.1); Chloride, Blood 107 mmol/L (98-108); Glomerular Filtration Rate >60 (60-); Glucose, Blood 164 mg/dL (70-99); Potassium, Blood 4.1 mmol/L (3.5-5.5); Sodium, Blood 139 mmol/L (136-145)
--- NOTE | 2019-01-04 07:13 | NUR ---
SHIFT SUMMARY PATIENT IS ALERT AND ORIENTED, ARRIVED TO ROOM VIA STRETCHER. USED A WALKER AND PIVOTED TO BED WITH 1 ASSIST. PATIENT HAS RIGHT AKA. PT ALSO HAS A STAGE 3 PRESSURE ULCER TO HER RIGHT BUTTOCK. CONSENT AND PICTURES TAKEN. PATIENT USES CALL LIGHT APPROPRIATELY. RECIEVING 1L OF NORMAL SALINE. HELD BLOOD PRESSURE MEDICATIONS PER RECOMMENDATION OF PHARMACY FOR PTS DIASTOLIC WAS 56. PATIENT SLEPT WELL THROUGHOUT THE NIGHT. PATIENT IS NPO FOR STRESS TEST THIS AM. VITALS STABLE. NO OTHER CHANGES NOTED.
--- NOTE | 2019-01-04 11:26 | NUR ---
ECHOCARDIOGRAM COMPLETED
--- NOTE | 2019-01-04 16:44 | NUR ---
SHIFT SUMMARY- PT A/OX4, 1 ASSIST WITH FWW UP TO BSC. PT MEDICATED X1 WITH TYLENOL FOR BUTTOCK PAIN. PT HAS CHRONIC PRESSURE ULCER TO LEFT BUTTOCK WELL DIABETIC ULCER TO LEFT FOOT, SEE PHOTOS IN CHART. PT A RIGHT AKA. LS DIMINISHED, ON RA BUT DOES REPORT SHE WEARS 2L N/C AT HS. FIRST PORTION OF STRESS TEST COMPLETED, SECOND TOMORROW. PT CAN HAVE BREAKFAST THAN NPO EXCEPT WATER AFTER BREAKFAST. PT HAS DENIED ANY CP, TELE NSR AT 63. NO OTHER ACUTE CHANGES THIS SHIFT.
--- NOTE | 2019-01-05 04:58 | NUR ---
SHIFT SUMMARY PATIENT IS ALERT AND ORIENTED. USES CALL LIGHT APPROPRIATELY. PATIENT WAS INCONTINENT THROUGHOUT THE NIGHT. DRESSING ON COCCYX IS C/D/I. PATIENT IS HAVING SECOND PART OF STRESS TEST TODAY. WILL LIKELY DISCHARGE AFTER. PATIENTS BLOOD PRESSURE IS SLIGHTLY LOW. WILL CONTINUE TO MONITOR. NO NEW CHANGES THROUGHOUT THE NIGHT.
--- NOTE | 2019-01-05 19:04 | NUR ---
SHIFT SUMAMRY: PT ALERT & ORIENTED; CALM AND COOPERATIVE WITH CARE. NO C/O PAIN OR NAUSEA THIS SHIFT. STRESS TEST THIS SHIFT; PT IS MEDICALLY STABLE AND READY FOR DISCHARGE; COMPLETING PAPERWORK AT END OF SHIFT. REPORT GIVEN TO ONCOMING RN.
== END 2019-01-05 19:52 | disposition home or self-care (01) ==
LOC: ER 15:21 → MEDS 15:22 → ENPENDDIS 01-05 17:15 → MEDS 01-05 19:52
PROVIDERS: Internal Medicine; Nurse Practitioner Acute Care; ADMIT Family Medicine
DX: R07.9 Chest pain, unspecified (principal); I16.0 Hypertensive urgency; E11.65 Type 2 diabetes mellitus with hyperglycemia; I51.81 Takotsubo syndrome; E87.1 Hypo-osmolality and hyponatremia; I10 Essential (primary) hypertension; E11.621 Type 2 diabetes mellitus with foot ulcer; L97.529 Non-pressure chronic ulcer of other part of left foot with unspecified severity; E11.51 Type 2 diabetes mellitus with diabetic peripheral angiopathy without gangrene; I73.9 Peripheral vascular disease, unspecified; J44.9 Chronic obstructive pulmonary disease, unspecified; D64.9 Anemia, unspecified; E78.5 Hyperlipidemia, unspecified; G47.33 Obstructive sleep apnea (adult) (pediatric); Z86.73 Personal history of transient ischemic attack (TIA), and cerebral infarction without residual deficits; Z99.81 Dependence on supplemental oxygen; Z99.89 Dependence on other enabling machines and devices; Z79.4 Long term (current) use of insulin; Z79.899 Other long term (current) drug therapy; Z88.0 Allergy status to penicillin; Z88.6 Allergy status to analgesic agent; Z87.891 Personal history of nicotine dependence; Z68.26 Body mass index [BMI] 26.0-26.9, adult; Z89.611 Acquired absence of right leg above knee
CPT/HCPCS: 36415; 71046; 78452; 80048; 80053; 82947; 83735; 83880; 84484; 85025; 85610; 87081; 93005; 93010; 93017; 93306; 94640; 94760; 96361; 96365; 96372; 96375; 96376; 99285-25; A9270; A9500; G0378; J0360; J0706; J1650; J2785; J3475; J7030

== ENCOUNTER 2019-01-12 08:45 | Day surgery (SDC) | payer MEDICARE, OTHER ==
[~2019-01-12 08:45] MED LIST changes: +CLON.1 PO
== END 2019-01-12 23:17 | disposition home or self-care (01) ==
LOC: WOUND
DX: E11.622 Type 2 diabetes mellitus with other skin ulcer (principal); L97.322 Non-pressure chronic ulcer of left ankle with fat layer exposed; L89.323 Pressure ulcer of left buttock, stage 3; L89.312 Pressure ulcer of right buttock, stage 2; E11.69 Type 2 diabetes mellitus with other specified complication; M86.672 Other chronic osteomyelitis, left ankle and foot; E11.51 Type 2 diabetes mellitus with diabetic peripheral angiopathy without gangrene; E11.621 Type 2 diabetes mellitus with foot ulcer; E11.40 Type 2 diabetes mellitus with diabetic neuropathy, unspecified; I70.229 Atherosclerosis of native arteries of extremities with rest pain, unspecified extremity; Z86.718 Personal history of other venous thrombosis and embolism; Z22.322 Carrier or suspected carrier of Methicillin resistant Staphylococcus aureus
CPT/HCPCS: 87070; 87147; 87205

== ENCOUNTER 2019-01-19 09:00 | Day surgery (SDC) | payer MEDICARE, OTHER | END 2019-01-19 22:49 | disposition home or self-care (01) | LOC: WOUND 09:00 | DX: L89.323 Pressure ulcer of left buttock, stage 3 (principal); E11.622 Type 2 diabetes mellitus with other skin ulcer; L97.322 Non-pressure chronic ulcer of left ankle with fat layer exposed; L97.822 Non-pressure chronic ulcer of other part of left lower leg with fat layer exposed; E11.69 Type 2 diabetes mellitus with other specified complication; M86.672 Other chronic osteomyelitis, left ankle and foot; E11.51 Type 2 diabetes mellitus with diabetic peripheral angiopathy without gangrene; I70.229 Atherosclerosis of native arteries of extremities with rest pain, unspecified extremity; E11.40 Type 2 diabetes mellitus with diabetic neuropathy, unspecified; I10 Essential (primary) hypertension; J44.9 Chronic obstructive pulmonary disease, unspecified; Z79.01 Long term (current) use of anticoagulants; Z89.511 Acquired absence of right leg below knee; Z22.322 Carrier or suspected carrier of Methicillin resistant Staphylococcus aureus; Z86.718 Personal history of other venous thrombosis and embolism ==

== ENCOUNTER 2019-02-02 09:00 | Day surgery (SDC) | payer MEDICARE, OTHER | END 2019-02-02 23:12 | disposition home or self-care (01) | LOC: WOUND 09:00 | PROC: 0JBR0ZZ Excision of Left Foot Subcutaneous Tissue and Fascia, Open Approach (ICD-10-PCS; principal; 2019-02-02) | PROC: 2W0MX6Z Change Pressure Dressing on Left Lower Extremity (ICD-10-PCS; principal; 2019-02-02) | PROC: 0JBM0ZZ Excision of Left Upper Leg Subcutaneous Tissue and Fascia, Open Approach (ICD-10-PCS; principal; 2019-02-02) | PROC: 0JB90ZZ Excision of Buttock Subcutaneous Tissue and Fascia, Open Approach (ICD-10-PCS; principal; 2019-02-02) | DX: E11.622 Type 2 diabetes mellitus with other skin ulcer (principal); E11.621 Type 2 diabetes mellitus with foot ulcer; L97.821 Non-pressure chronic ulcer of other part of left lower leg limited to breakdown of skin; L97.322 Non-pressure chronic ulcer of left ankle with fat layer exposed; L89.323 Pressure ulcer of left buttock, stage 3; E11.40 Type 2 diabetes mellitus with diabetic neuropathy, unspecified; E11.51 Type 2 diabetes mellitus with diabetic peripheral angiopathy without gangrene; E11.69 Type 2 diabetes mellitus with other specified complication; M86.672 Other chronic osteomyelitis, left ankle and foot; B95.1 Streptococcus, group B, as the cause of diseases classified elsewhere; I70.229 Atherosclerosis of native arteries of extremities with rest pain, unspecified extremity; R60.9 Edema, unspecified; I10 Essential (primary) hypertension; J44.9 Chronic obstructive pulmonary disease, unspecified; Z79.01 Long term (current) use of anticoagulants; Z89.511 Acquired absence of right leg below knee; Z86.718 Personal history of other venous thrombosis and embolism; Z22.322 Carrier or suspected carrier of Methicillin resistant Staphylococcus aureus; Z99.3 Dependence on wheelchair; Z89.611 Acquired absence of right leg above knee ==

== ENCOUNTER 2019-02-09 09:00 | Day surgery (SDC) | payer MEDICARE, OTHER | END 2019-02-09 22:45 | disposition home or self-care (01) | LOC: WOUND 09:00 | PROC: 0HDLXZZ Extraction of Left Lower Leg Skin, External Approach (ICD-10-PCS; principal; 2019-02-09) | PROC: 0JB90ZZ Excision of Buttock Subcutaneous Tissue and Fascia, Open Approach (ICD-10-PCS; 2019-02-09) | DX: L89.323 Pressure ulcer of left buttock, stage 3 (principal); E11.622 Type 2 diabetes mellitus with other skin ulcer; L97.821 Non-pressure chronic ulcer of other part of left lower leg limited to breakdown of skin; L97.322 Non-pressure chronic ulcer of left ankle with fat layer exposed; I83.028 Varicose veins of left lower extremity with ulcer other part of lower leg; E11.69 Type 2 diabetes mellitus with other specified complication; M86.672 Other chronic osteomyelitis, left ankle and foot; E11.51 Type 2 diabetes mellitus with diabetic peripheral angiopathy without gangrene; I70.229 Atherosclerosis of native arteries of extremities with rest pain, unspecified extremity; I10 Essential (primary) hypertension; R60.9 Edema, unspecified; Z89.511 Acquired absence of right leg below knee; Z79.01 Long term (current) use of anticoagulants; Z22.322 Carrier or suspected carrier of Methicillin resistant Staphylococcus aureus; Z86.718 Personal history of other venous thrombosis and embolism ==

== ENCOUNTER 2019-02-16 00:17 | Day surgery (SDC) | payer MEDICARE, OTHER | END 2019-02-16 23:00 | disposition home or self-care (01) | LOC: WOUND 00:17 | PROC: 0JB90ZZ Excision of Buttock Subcutaneous Tissue and Fascia, Open Approach (ICD-10-PCS; principal; 2019-02-16) | PROC: 2W0MX6Z Change Pressure Dressing on Left Lower Extremity (ICD-10-PCS; principal; 2019-02-16) | DX: L89.323 Pressure ulcer of left buttock, stage 3 (principal); L89.522 Pressure ulcer of left ankle, stage 2; I83.028 Varicose veins of left lower extremity with ulcer other part of lower leg; E11.622 Type 2 diabetes mellitus with other skin ulcer; L97.822 Non-pressure chronic ulcer of other part of left lower leg with fat layer exposed; L97.329 Non-pressure chronic ulcer of left ankle with unspecified severity; M86.672 Other chronic osteomyelitis, left ankle and foot; E11.40 Type 2 diabetes mellitus with diabetic neuropathy, unspecified; E11.51 Type 2 diabetes mellitus with diabetic peripheral angiopathy without gangrene; I70.229 Atherosclerosis of native arteries of extremities with rest pain, unspecified extremity; I10 Essential (primary) hypertension; J44.9 Chronic obstructive pulmonary disease, unspecified; Z86.718 Personal history of other venous thrombosis and embolism; Z79.01 Long term (current) use of anticoagulants; Z22.322 Carrier or suspected carrier of Methicillin resistant Staphylococcus aureus; Z99.3 Dependence on wheelchair; Z89.611 Acquired absence of right leg above knee; Z86.73 Personal history of transient ischemic attack (TIA), and cerebral infarction without residual deficits ==

== ENCOUNTER 2019-02-23 08:00 | Day surgery (SDC) | payer MEDICARE, OTHER | END 2019-02-23 23:03 | disposition home or self-care (01) | LOC: WOUND 08:00 | DX: L89.323 Pressure ulcer of left buttock, stage 3 (principal); E11.69 Type 2 diabetes mellitus with other specified complication; M86.672 Other chronic osteomyelitis, left ankle and foot; E11.51 Type 2 diabetes mellitus with diabetic peripheral angiopathy without gangrene; I70.229 Atherosclerosis of native arteries of extremities with rest pain, unspecified extremity; E11.40 Type 2 diabetes mellitus with diabetic neuropathy, unspecified; I10 Essential (primary) hypertension; J44.9 Chronic obstructive pulmonary disease, unspecified; Z89.511 Acquired absence of right leg below knee; Z86.718 Personal history of other venous thrombosis and embolism; Z22.322 Carrier or suspected carrier of Methicillin resistant Staphylococcus aureus; Z79.01 Long term (current) use of anticoagulants | CPT/HCPCS: 73660 ==

== ENCOUNTER 2019-03-02 00:22 | Day surgery (SDC) | payer MEDICARE, OTHER ==
[2019-03-02] MEDS ORDERED: Percocet 7.5-31 EACH PO (14:15)
[2019-03-02] MEDS ORDERED: Feosol45 MG PO (14:16)
[2019-03-02] MEDS ORDERED: ACET325 PO (14:20)
[2019-03-02] MEDS ORDERED: DOCU100 PO (14:20)
[2019-03-02] MEDS ORDERED: LOSA50 PO (14:20)
[2019-03-02] MEDS ORDERED: MIRALAX17 GM PO (14:22)
[2019-03-02] MEDS ORDERED: CLON.1 PO (14:26)
[2019-03-03] MEDS ORDERED: Ferrocite324 MG PO (21:51)
[2019-03-03] MEDS ORDERED: Nitroglycerin1 EAC3 TD (21:53)
== END 2019-03-02 23:17 | disposition home or self-care (01) ==
LOC: WOUND 00:22
DX: L89.323 Pressure ulcer of left buttock, stage 3 (principal); E11.621 Type 2 diabetes mellitus with foot ulcer; M86.672 Other chronic osteomyelitis, left ankle and foot; E11.51 Type 2 diabetes mellitus with diabetic peripheral angiopathy without gangrene; I70.229 Atherosclerosis of native arteries of extremities with rest pain, unspecified extremity; E11.40 Type 2 diabetes mellitus with diabetic neuropathy, unspecified; I10 Essential (primary) hypertension; Z86.718 Personal history of other venous thrombosis and embolism; Z89.511 Acquired absence of right leg below knee; Z79.01 Long term (current) use of anticoagulants; Z22.322 Carrier or suspected carrier of Methicillin resistant Staphylococcus aureus
CPT/HCPCS: 36415; 80048; 85025; 85610

== ENCOUNTER 2019-03-03 21:35 | Observation (INO) | payer MEDICARE, OTHER ==
[~2019-03-03] VITALS: Ht 162.6 cm; Wt 75.4 kg
[~2019-03-03 21:35] MED LIST changes: +Feosol45 MG PO; +MIRALAX17 GM PO; +Percocet 7.5-31 EACH PO
[2019-03-03] MEDS ORDERED: Ferrocite324 MG PO (21:51)
[2019-03-03] MEDS ORDERED: Nitroglycerin1 EAC3 TD (21:53)
[2019-03-03 22:27] LABS: BASOPHILS ABSOLUTE AUTO 0.02 K/mm3 (0.00-0.23); BASOPHILS PERCENT AUTO 0 % (0-2); EOSINOPHILS ABSOLUTE AUTO 0.08 K/mm3 (0.00-0.68); EOSINOPHILS PERCENT AUTO 1 % (0-6); Hematocrit 26.8 % (33.0-51.0); Hemoglobin 8.8 g/dL (11.5-16.0); IMMATURE GRAN ABSOLUTE AUTO 0.05 K/mm3 (0.00-0.10); IMMATURE GRAN PERCENT AUTO 1 % (0-1); LYMPHOCYTES ABSOLUTE AUTO 0.88 K/mm3 (0.84-5.20); LYMPHOCYTES PERCENT AUTO 10 % (21-46); MONOCYTES ABSOLUTE AUTO 0.85 K/mm3 (0.16-1.47); MONOCYTES PERCENT AUTO 9 % (4-13); Mean Corpuscular HGB 29.5 pg (26.0-34.0); Mean Corpuscular HGB Conc 32.8 g/dL (31.5-36.5); Mean Corpuscular Volume 90 fL (80-100); Mean Platelet Volume 10.8 fL (9.1-12.4); NEUTROPHILS ABSOLUTE AUTO 7.22 K/mm3 (1.96-9.15); NEUTROPHILS PERCENT AUTO 79 % (41-73); Platelet Count 225 K/mm3 (150-400); RDW Coefficient Variation 13.2 % (11.7-14.2); RDW Standard Deviation 43.3 fL (35.1-46.3); Red Blood Cell Count 2.98 M/mm3 (3.80-5.20)
[2019-03-03 22:40] LABS: Alanine Aminotransfer (ALT/SGP 12 U/L (12-78); Albumin, Blood 2.1 g/dL (3.4-5.0); Albumin/Globulin Ratio 0.5 (0.8-1.8); Alk Phos 94 U/L (50-136); Anion Gap 4 mmol/L (6-16); Aspartate Aminotrans (AST/SGOT 9 U/L (12-37); Bilirubin, Total 0.3 mg/dL (0.1-1.0); Blood Urea Nitrogen 20 mg/dL (8-24); Bun/Creatinine Ratio 24.2 (12.0-20.0); CO2, Blood 28 mmol/L (21-32); Calcium, Blood 7.7 mg/dL (8.5-10.1); Chloride, Blood 105 mmol/L (98-108); Creatinine, Blood 0.83 mg/dL (0.40-1.00); Glomerular Filtration Rate >60 (60-); Glucose, Blood 218 mg/dL (70-99); Potassium, Blood 4.2 mmol/L (3.5-5.5); Sodium, Blood 137 mmol/L (136-145); Total Protein, Blood 6.1 g/dL (6.4-8.2); Troponin I 0.018 ng/mL (0.000-0.040)
[2019-03-03 23:12] LABS: Source, Urine Catheter
[2019-03-03 23:16] LABS: Appearance, Urine Hazy (Clear); Bilirubin, Urine Neg (Neg); Blood, Urine 5+ (Neg); Color, Urine Yellow (P-Yellow); Glucose Qualitative, Urine Neg (Neg); Ketones, Urine 1+ (Neg); Leukocyte Esterase, Urine 1+ (Neg); Nitrite, Urine Neg (Neg); Protein, Urine 4+ (Neg); Specific Gravity, Urine 1.025 (1.003-1.022); Urobilinogen, Urine NORM (Normal)
[2019-03-03 23:24] LABS: Amorphous Mod (0-Heavy); Bacteria Few /hpf; Squamous Epithelial Cells Few /hpf (Few)
--- NOTE | 2019-03-04 05:41 | NUR ---
ASSUMED CARE/SUMMARY REPORT TAKEN FROM [facility] ED RN. PT TO UNIT ON STRETCHER AND SLID TO HOSP BY W/ SLIDER SHEET. PT HAS AKA TO R LEG, SURGICAL SITE HEALED WELL. PT HAS DUCUBITUS ULCER TO L BUTTOCKS, PT REPORTS SEES [facility] AND WAS DUE TO DRESSING CHANGE TODAY. PT HAS WOUND VAC TO AREA, AND LEFT WOUND VAC AT HOME, WILL NEED NEW WOUND VAC APPLIED TO WOUND. ED PACKED AND COVERED WOUND BEFORE SENT PT TO UNIT. RESP EVEN UNLBAORED ON RA. PT REPORTS USES NC AT NOC, BUT NONCOMPLIANT AT TIMES. REPORTS SOME PAIN TO BACKSIDE WOUND, PILLOW PLACED UNDER L HIP FOR COMFORT, PAIN RELIVED. CALL LIGHT IN REACH. CRANE RIGGER IN ROOM FINISHING ADMIT.
--- NOTE | 2019-03-04 09:42 | NUR ---
0800-ASSUMED CARE OF PT. PT IS ALERT AND ORIENTED. COMPLAINTS OF PAIN TO HER LEFT BUTTOCKS- WHICH IS COVERED WITH MEPILEX. WOUND VAC WILL BE PLACED TODAY. WILL FOLLOW UP WITH WOUND CLINIC. PT DOES HELPS WITH REPOSITIONING. PT USES THE TRAPEZE VERY WELL. AFEBRILE. 0820-PT SEEN BY DR. RIOJAS. 0942-PT IS ASLEEP AT THIS TIME.
--- NOTE | 2019-03-04 17:40 | NUR ---
REPORT GIVEN TO RIZWAN MAYORGA IN MEDICAL FLOOR. PT WILL BE TRANSFERED TO ROOM 343
--- NOTE | 2019-03-04 18:24 | NUR ---
PT. ARRIVED TO ROOM FROM PCU-9, KEPT THE BED SHE CAME IN, PLACED ON A BEDPAN PER HER REQUEST, WOUND VAC ON ON LEFT BUTTOCK INTACT. DRESSING ON LEFT ANKLE CD&I. PT. A&O PLEASANT AND COOPEERATIVE. CBG'S AC/HS. NO NOTEABLE CHANGES SINCE COMING TO FLOOR.
--- NOTE | 2019-03-04 19:22 | NUR ---
1830-pt was transfered to room 343.
[2019-03-05 05:29] LABS: BASOPHILS ABSOLUTE AUTO 0.01 K/mm3 (0.00-0.23); BASOPHILS PERCENT AUTO 0 % (0-2); EOSINOPHILS PERCENT AUTO 0 % (0-6); Hematocrit 28.2 % (33.0-51.0); Hemoglobin 9.2 g/dL (11.5-16.0); IMMATURE GRAN ABSOLUTE AUTO 0.06 K/mm3 (0.00-0.10); IMMATURE GRAN PERCENT AUTO 1 % (0-1); LYMPHOCYTES ABSOLUTE AUTO 0.53 K/mm3 (0.84-5.20); LYMPHOCYTES PERCENT AUTO 5 % (21-46); MONOCYTES ABSOLUTE AUTO 0.47 K/mm3 (0.16-1.47); MONOCYTES PERCENT AUTO 4 % (4-13); Mean Corpuscular HGB 28.4 pg (26.0-34.0); Mean Corpuscular HGB Conc 32.6 g/dL (31.5-36.5); Mean Platelet Volume 10.6 fL (9.1-12.4); NEUTROPHILS ABSOLUTE AUTO 9.77 K/mm3 (1.96-9.15); NEUTROPHILS PERCENT AUTO 90 % (41-73); Platelet Count 248 K/mm3 (150-400); RDW Coefficient Variation 13.2 % (11.7-14.2); RDW Standard Deviation 41.9 fL (35.1-46.3); Red Blood Cell Count 3.24 M/mm3 (3.80-5.20); White Blood Cell Count 10.84 K/mm3 (4.00-11.30)
[2019-03-05 05:33] LABS: Mean Corpuscular Volume 87 fL (80-100)
[2019-03-05 05:53] LABS: Albumin, Blood 2.2 g/dL (3.4-5.0); Albumin/Globulin Ratio 0.5 (0.8-1.8); Bilirubin, Total 0.2 mg/dL (0.1-1.0); Bun/Creatinine Ratio 36.2 (12.0-20.0); Calcium, Blood 8.7 mg/dL (8.5-10.1); Creatinine, Blood 1.16 mg/dL (0.40-1.00); Globulin, Blood 4.6 g/dL (2.2-4.0); Potassium, Blood 5.2 mmol/L (3.5-5.5); Total Protein, Blood 6.8 g/dL (6.4-8.2)
--- NOTE | 2019-03-05 06:32 | NUR ---
SHIFT SUMMARY PT IS A 64 Y/O FEMALE, ADMITTED FOR COPD. SHE WAS TRANSFERED FROM PCU JUST PRIOR TO START OF SHIFT. SHE IS A&O X 4, AND WHEELCHAIR BOUND AT BASELINE WITH A RIGHT AKA. SHE HAS A WOUND ON HER LEFT BUTTOCKS, WITH A WOUND VAC IN PLACE. NO DRAINAGE ASSESSED IN THE WOUND VAC. SHE WAS MEDICATED TWICE FOR PAIN WITH PRN PERCOCET. NO COMPLAINTS OF SOB OR NAUSEA. PT DID NOT SLEEP WELL DURING THE NIGHT. PT'S BP WAS ELEVATED AT START OF SHIFT IN THE 170S SYSTOLICALLY, BUT CAME DOWN TO THE 110S BY AM VITALS. ALL OTHER VITALS STABLE. NO OTHER ACUTE CHANGES IN PT CONDITION NOTED. WILL CONTINUE TO MONITOR AND TREAT PER EMAR UNTIL HAND OFF TO DAY SHIFT.
--- NOTE | 2019-03-05 14:26 | NUR ---
SHE IS WEAK. SHE WAS EVALUATED BY PT AND IS HOPEFUL OF GOING HOME TODAY. SHE VOIDS PER BEDPAN HERE BUT TRANSFERS HERSELF TO HER TOILET AT HOME. WOUND VAC HAS A GOOD SEAL. WHEN HER FRIEND PICKS HER UP, SHE WILL BRING THE HOME WOUND VAC MACHINE WITH HER FOR US TO SWITCH OVER. SHE SAYS SHE WOULD LIKE PAIN PILLS NOW. LAST HAD PAIN PILLS AT SHIFT CHANGE THIS MORNING. CBG'S IN THE 300'S. CONTACT ISOLATION IN PLACE FOR MRSA WOUND.
--- NOTE | 2019-03-05 15:59 | NUR ---
SHE IS DRESSED AND READY FOR DISCHARGE. INSTRUCTIONS GIVEN. SALINE LOCK DC'D.
--- NOTE | 2019-03-05 17:50 | NUR ---
DISCHARGED TO HOME AT 1616 WITH INSTRUCTIONS, BELONGINGS AND HOME WOUND VAC MACHINE CONNECTED AND WORKING AT 125 MM SUCTION.
== END 2019-03-05 16:20 | disposition home or self-care (01) ==
LOC: ER 21:35 → PCU 21:36 → ER 03-04 05:11 → PCU 03-04 05:12 → ER 03-04 16:17 → PCU 03-04 16:17 → MEDS 03-04 16:17 → PCU 03-04 16:17 → MEDS 03-04 18:30 → PCU 03-04 18:30 → ENPENDDIS 03-05 14:44 → MEDS 03-05 16:20
PROVIDERS: Emergency Medicine; ADMIT Internal Medicine
DX: J44.9 Chronic obstructive pulmonary disease, unspecified (principal); R53.1 Weakness; R91.8 Other nonspecific abnormal finding of lung field; L89.529 Pressure ulcer of left ankle, unspecified stage; L89.159 Pressure ulcer of sacral region, unspecified stage; I10 Essential (primary) hypertension; E11.51 Type 2 diabetes mellitus with diabetic peripheral angiopathy without gangrene; I73.9 Peripheral vascular disease, unspecified; D64.9 Anemia, unspecified; G47.33 Obstructive sleep apnea (adult) (pediatric); Z86.718 Personal history of other venous thrombosis and embolism; Z87.891 Personal history of nicotine dependence; Z88.6 Allergy status to analgesic agent; Z88.0 Allergy status to penicillin; Z79.899 Other long term (current) drug therapy; Z79.51 Long term (current) use of inhaled steroids; Z79.4 Long term (current) use of insulin; Z99.81 Dependence on supplemental oxygen
CPT/HCPCS: 36415; 71046; 80053; 81001; 82947; 83036; 83605; 84145; 84484; 85025; 87040; 87070; 87075; 87076; 87086; 87147; 87185; 87205; 93005; 93010; 94640; 94760; 96365; 96366; 96372; 96375; 97161; 99285-25; G0378; J0696; J1100; J1650; J1815; J1956; J7050; J7512; P9612

== ENCOUNTER 2019-03-09 09:00 | Day surgery (SDC) | payer MEDICARE, OTHER ==
[~2019-03-09 09:00] MED LIST changes: +Ferrocite324 MG PO; +Nitroglycerin1 EAC3 TD
== END 2019-03-09 22:54 | disposition home or self-care (01) ==
LOC: WOUND 09:00
DX: E11.621 Type 2 diabetes mellitus with foot ulcer (principal); L97.529 Non-pressure chronic ulcer of other part of left foot with unspecified severity; L89.323 Pressure ulcer of left buttock, stage 3; E11.51 Type 2 diabetes mellitus with diabetic peripheral angiopathy without gangrene; I70.229 Atherosclerosis of native arteries of extremities with rest pain, unspecified extremity; E11.40 Type 2 diabetes mellitus with diabetic neuropathy, unspecified; E11.69 Type 2 diabetes mellitus with other specified complication; M86.672 Other chronic osteomyelitis, left ankle and foot; I10 Essential (primary) hypertension; Z86.718 Personal history of other venous thrombosis and embolism; Z89.511 Acquired absence of right leg below knee; Z79.01 Long term (current) use of anticoagulants; Z22.322 Carrier or suspected carrier of Methicillin resistant Staphylococcus aureus
CPT/HCPCS: 87071; 87075; 87147; 87205; G0463

== ENCOUNTER 2019-03-16 00:22 | Day surgery (SDC) | payer MEDICARE, OTHER | END 2019-03-16 22:54 | disposition home or self-care (01) | LOC: WOUND | DX: L89.323 Pressure ulcer of left buttock, stage 3 (principal); L89.319 Pressure ulcer of right buttock, unspecified stage; E11.621 Type 2 diabetes mellitus with foot ulcer; E11.51 Type 2 diabetes mellitus with diabetic peripheral angiopathy without gangrene; I70.229 Atherosclerosis of native arteries of extremities with rest pain, unspecified extremity; M86.672 Other chronic osteomyelitis, left ankle and foot; E11.40 Type 2 diabetes mellitus with diabetic neuropathy, unspecified; I10 Essential (primary) hypertension; Z89.511 Acquired absence of right leg below knee; Z79.01 Long term (current) use of anticoagulants; Z86.718 Personal history of other venous thrombosis and embolism ==

== ENCOUNTER 2019-03-23 09:00 | Day surgery (SDC) | payer MEDICARE, OTHER | END 2019-03-23 22:50 | disposition home or self-care (01) | LOC: WOUND | DX: E11.69 Type 2 diabetes mellitus with other specified complication (principal); M86.18 Other acute osteomyelitis, other site; L89.322 Pressure ulcer of left buttock, stage 2; S71.102A Unspecified open wound, left thigh, initial encounter; E11.621 Type 2 diabetes mellitus with foot ulcer; M86.672 Other chronic osteomyelitis, left ankle and foot; E11.51 Type 2 diabetes mellitus with diabetic peripheral angiopathy without gangrene; I10 Essential (primary) hypertension; E11.40 Type 2 diabetes mellitus with diabetic neuropathy, unspecified; I70.229 Atherosclerosis of native arteries of extremities with rest pain, unspecified extremity; Z86.718 Personal history of other venous thrombosis and embolism; Z89.511 Acquired absence of right leg below knee; Z79.01 Long term (current) use of anticoagulants | CPT/HCPCS: 87071; 87075; 87147; 87205; 88305; 88311 ==

== ENCOUNTER 2019-04-01 09:13 | Day surgery (SDC) | payer MEDICARE, OTHER ==
[~2019-04-01] VITALS: Ht 162.6 cm; Wt 75.0 kg
--- NOTE | 2019-04-01 19:31 | NUR ---
PT TO ROOM AT 1818, BEDSIDE REPORT PROVIDED FROM RIZWAN SOLANO IN ADJUDICATION SPECIALIST. RIGHT RADIAL SITE: TR B AND NOTED, 10cc IN BAND, NO BLEEDING, HEMATOMA, BRUISING NOTED AT SITE, RIGHT HAND COOL, CAP REFILL 3 SECS, PT REPROTS NUMB/TING TO BLE STARTED "A COUPLE DAYS AGO" BUT NOTHING ACUTE FROM PROCEDURE. LEFT PEDAL SITE: MEDINA DRESSING IN PLACE, SCANT AMOUNT OF BLEEDING NOTED, FOOT IS PALE AND COLD. PEDAL PULSE/TIBIAL PULSE NOTED FAINT UPON ARRIVAL TO ROOM, NOT PRESENT WHEN GIVING REPORT TO NOC RN, PLANS TO USE DOPPLER. PT DENIES NUM/TING IN LLE, NO ADDITIONAL BLEEDING, HEMATOMA OR BRUISING NOTED AT LEFT PEDAL SITE. PT HAS PEELING AND REDNESS ON LEFT ANKLE, LEFT GREAT TOE HAS SMALL RED AT TIP THAT IS NOT BLANCABLE. PT HAS WOUNDS ON BILATERAL GLUTEAL CLEFS, RIGHT SIDE IS OPEN BUT SHALLOW, LEFT SIDE IS DEEP, HOME DRESSING REMOVED AND MEPILEX PLACED TO KEEP SITES CLEAN AND DRY. PT A&Ox3, KNOWS STATES IS Feb. PT >92% ON RA, WEARS 2L O2 VIA NC AT NIGHT, LS CLEAR/DIM BASES.BREATHING EVEN AND UNLABORED. PT DENIES PAIN, SOB AND NAUSEA. PT STATES LAST BM THIS AM. BS PRESENT x4 QUAD, ABD NONTENDER AND SOFT, HX OF COLON/RECTAL CANCER. BP ELEVATED, OTHER VSS. NO OTHER ACUTE CHANGES NOTED. REPORT GIVEN TO ONCOMING RN.
--- NOTE | 2019-04-01 20:00 | NUR ---
CARE ASSUMPTION PT A&O X4. VSS. R RADIAL ACCESS SITE WNL, NO BLEEDING, NO HEMATOMA. TR BAND TO R RADIAL ACCESS SITE REPORTED TO BE INFLATED W/ 10 MLS AIR. ARM IMMOBILIZER BOARD IN PLACE. R RADIAL PULSE STRONG. L PEDAL ACCESS SITE WNL, NO BLEEDING, NO HEMATOMA. L PEDAL ACCESS SITE DRESSED W/ MEDINA PAD AND TRANSPARENT DRESSING. LEFT FOOT PEDAL AND TIBIAL PULSE ASSESSED USING DOPPLER. WILL CONTINUE TO MONITOR AND PROVIDE CARE.
--- NOTE | 2019-04-02 03:26 | NUR ---
SHIFT SUMMARY PT A&O X4. BP ELEVATED, OTHERWISE VSS. R RADIAL ACCESS SITE RECOVERY WNL T/O SHIFT. TR BAND REMOVED & REPLACED W/ OPSITE DRESSING @ APPROX 0300 THIS AM. SITE WNL, NO BLEEDING, NO HEMATOMA. ARM BOARD IN PLACE TO R ARM. L PEDAL ACCESS SITE WNL. WILL CONTINUE TO MONITOR AND PROVIDE CARE UNTIL REPORT OFF TO DAY SHIFT RN.
--- NOTE | 2019-04-02 09:35 | NUR ---
PT LAYING IN BED AWAKE A/OX3, PLEASANT AND COOPERATIVE WITH CARE, FOLLOWS COMMANDS WELL, DENIES PAIN AT THIS TIME, VS STABLE, AFEBRILE, IV SITE IS CLEAR AND PATENT, BTX4, ABD FLAT SOFT NONTENDER, VOIDS WITHOUT DIFF, SKIN HAS TR BAND SITE TO R WRIST, AND LEFT FOOT, DRESSINGS IN PLACE, NO SIGN OF DRAINAGE OR BRUISING, PP FOUND VIA DOPPLER, PEACE RICHARD, CALL LIGHT IN REACH.
--- NOTE | 2019-04-02 13:54 | NUR ---
PT HAS BEEN DISCHARGED TO HOME, WENT OVER DISCHARGE INSTRUCTIONS WITH HER AND PERSON IN ROOM, THEY VERBALIZE UNDERSTANDING, IV WAS REMOVED INTACT, NO NEW MEDS TO CALL IN, TRANSFERED HERSELF TO HER WHEELCHAIR, LEFT VIA WHEELCHAIR WITH CAREGIVER IN ATTENDENCE.
== END 2019-04-02 13:53 | disposition home or self-care (01) ==
LOC: MHTC 09:13 → PCU 18:15 → MHTC 04-02 13:53
DX: I70.249 Atherosclerosis of native arteries of left leg with ulceration of unspecified site (principal); L97.929 Non-pressure chronic ulcer of unspecified part of left lower leg with unspecified severity; I74.5 Embolism and thrombosis of iliac artery; I70.8 Atherosclerosis of other arteries
CPT/HCPCS: 37220; 37226; 37228; 75625; 75716; 75774; 99152; 99153; C1725; C1769; C1773; C1874; C1887; C1894; C2623; J0360; J1644; J2250; J3010; J7030; Q9967

== ENCOUNTER 2019-04-06 09:00 | Day surgery (SDC) | payer MEDICARE, OTHER | END 2019-04-06 23:01 | disposition home or self-care (01) | LOC: WOUND 09:00 | DX: L89.323 Pressure ulcer of left buttock, stage 3 (principal); E11.621 Type 2 diabetes mellitus with foot ulcer; E11.69 Type 2 diabetes mellitus with other specified complication; M86.672 Other chronic osteomyelitis, left ankle and foot; E11.51 Type 2 diabetes mellitus with diabetic peripheral angiopathy without gangrene; I70.229 Atherosclerosis of native arteries of extremities with rest pain, unspecified extremity; E11.40 Type 2 diabetes mellitus with diabetic neuropathy, unspecified; I10 Essential (primary) hypertension; Z86.718 Personal history of other venous thrombosis and embolism; Z89.511 Acquired absence of right leg below knee; Z79.01 Long term (current) use of anticoagulants ==

== ENCOUNTER 2019-04-09 10:43 | Inpatient (IN) | payer MEDICARE, OTHER ==
[~2019-04-09] VITALS: Ht 162.6 cm; Wt 73.9 kg
[2019-04-09 11:12] LABS: Source, Urine Catheter
[2019-04-09 11:17] LABS: BASOPHILS ABSOLUTE AUTO 0.01 K/mm3 (0.00-0.23); BASOPHILS PERCENT AUTO 0 % (0-2); EOSINOPHILS ABSOLUTE AUTO 0.08 K/mm3 (0.00-0.68); EOSINOPHILS PERCENT AUTO 1 % (0-6); Hematocrit 19.5 % (33.0-51.0); Hemoglobin 6.2 g/dL (11.5-16.0); IMMATURE GRAN ABSOLUTE AUTO 0.07 K/mm3 (0.00-0.10); IMMATURE GRAN PERCENT AUTO 1 % (0-1); LYMPHOCYTES ABSOLUTE AUTO 0.87 K/mm3 (0.84-5.20); LYMPHOCYTES PERCENT AUTO 11 % (21-46); MONOCYTES ABSOLUTE AUTO 0.67 K/mm3 (0.16-1.47); MONOCYTES PERCENT AUTO 9 % (4-13); Mean Corpuscular HGB 27.1 pg (26.0-34.0); Mean Corpuscular HGB Conc 31.8 g/dL (31.5-36.5); Mean Corpuscular Volume 85 fL (80-100); NEUTROPHILS ABSOLUTE AUTO 5.94 K/mm3 (1.96-9.15); NEUTROPHILS PERCENT AUTO 78 % (41-73); Platelet Count 210 K/mm3 (150-400); RDW Coefficient Variation 13.6 % (11.7-14.2); RDW Standard Deviation 41.8 fL (35.1-46.3); Red Blood Cell Count 2.29 M/mm3 (3.80-5.20); White Blood Cell Count 7.64 K/mm3 (4.00-11.30)
[2019-04-09 11:19] LABS: Bilirubin, Urine Neg (Neg); Blood, Urine 4+ (Neg); Glucose Qualitative, Urine Neg (Neg); Ketones, Urine 1+ (Neg); Leukocyte Esterase, Urine 1+ (Neg); Nitrite, Urine Neg (Neg); Protein, Urine 3+ (Neg); Specific Gravity, Urine 1.025 (1.003-1.022); Urobilinogen, Urine NORM (Normal)
[2019-04-09 11:31] LABS: Appearance, Urine Clear (Clear); Color, Urine Yellow (P-Yellow)
[2019-04-09 11:33] LABS: Bacteria Mod /hpf; Squamous Epithelial Cells Few /hpf (Few)
[2019-04-09 11:41] LABS: Albumin, Blood 2.2 g/dL (3.4-5.0); Albumin/Globulin Ratio 0.6 (0.8-1.8); Bilirubin, Total 0.5 mg/dL (0.1-1.0); Bun/Creatinine Ratio 23.3 (12.0-20.0); Creatinine, Blood 1.03 mg/dL (0.40-1.00); Globulin, Blood 3.6 g/dL (2.2-4.0); Potassium, Blood 4.8 mmol/L (3.5-5.5); Total Protein, Blood 5.8 g/dL (6.4-8.2)
[2019-04-09] MEDS ORDERED: PIOG15 PO (14:20)
[2019-04-09] MEDS ORDERED: SPIRIVA RESPIMAT4 GM INH (14:21)
[2019-04-09] MEDS ORDERED: Fluoxetine HCl10 M1 PO (14:21)
[2019-04-09 15:11] LABS: C-REACTIVE PROTEIN, EXT RANGE 10.8 mg/dL (0.000-0.300)
[2019-04-09 15:21] LABS: Thyroid Stimulating Hormone 0.685 uIU/mL (0.360-4.800)
--- NOTE | 2019-04-09 18:05 | NUR ---
symptom review and needs review pt has had exptensive treatment of wounds and infusion therapy from doctor jeannine. Brief review of prognoisis in ER and goals we did a polst she does not want intubation or life support but want a go at CPR. review of cpr but pt still wants it. carefull review with her POA of trajecory and revisitng advace care plan if prognosis worsens. will have phsyician complete polst.
--- NOTE | 2019-04-09 18:14 | NUR ---
review of polst tiwh nursing will have phsyician complete
[2019-04-09] MEDS ORDERED: NITR.6SL SL (19:02)
[2019-04-09] MEDS ORDERED: GENPREOPSU BOTHEYES (19:03)
--- NOTE | 2019-04-09 19:03 | NUR ---
SHIFT SUMMARY SOFI ARRIVED FROM ER AROUND 4PM. URINATED ON BED WOOD, STATES SHE IS TOO WEAK TO STAND AND PIVOT TO BSC. COMPLAINED OF L BUTTOCK PAIN FOR WHICH SHE RECEIVED HER PERCOCET. EX-PARTNER PREET WAS AT BEDSIDE FOR A COUPLE HOURS PRIOR TO GOING HOME. 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 SHE EXPLAINED THAT SHE GAVE PT 61 UNITS OF LANTUS THIS MORNING, BUT HERE IT IS SCHEDULED 31 UNITS BID. I WENT AHEAD AND HELD TONIGHTS DOSE OF LANTUS AND PASSED THIS ON IN REPORT. ALL WOUNDS WERE CLEANED AND DRESSED AND PICTURES TAKEN. PERCOCET GIVEN FOR PAIN IN WOUNDS TO GOOD EFFECT. PT HAS BEEN ALERT AND ORIENTED. UNIT OF BLOOD FINISHING UP. TO GET PICC TOMORROW AT 0900. TOOK MEDS PRESCRIBED. CALL LIGHT IN REACH
[2019-04-09] MEDS ORDERED: Apple Cider Vi300 MG PO (19:04)
[2019-04-10 05:23] LABS: BASOPHILS ABSOLUTE AUTO 0.03 K/mm3 (0.00-0.23); BASOPHILS PERCENT AUTO 0 % (0-2); EOSINOPHILS ABSOLUTE AUTO 0.24 K/mm3 (0.00-0.68); EOSINOPHILS PERCENT AUTO 3 % (0-6); Hematocrit 27.2 % (33.0-51.0); Hemoglobin 8.6 g/dL (11.5-16.0); IMMATURE GRAN ABSOLUTE AUTO 0.06 K/mm3 (0.00-0.10); IMMATURE GRAN PERCENT AUTO 1 % (0-1); LYMPHOCYTES ABSOLUTE AUTO 0.89 K/mm3 (0.84-5.20); LYMPHOCYTES PERCENT AUTO 12 % (21-46); MONOCYTES ABSOLUTE AUTO 0.75 K/mm3 (0.16-1.47); MONOCYTES PERCENT AUTO 10 % (4-13); Mean Corpuscular HGB 27.7 pg (26.0-34.0); Mean Corpuscular HGB Conc 31.6 g/dL (31.5-36.5); Mean Platelet Volume 10.8 fL (9.1-12.4); NEUTROPHILS ABSOLUTE AUTO 5.23 K/mm3 (1.96-9.15); NEUTROPHILS PERCENT AUTO 73 % (41-73); Platelet Count 224 K/mm3 (150-400); RDW Coefficient Variation 13.9 % (11.7-14.2); RDW Standard Deviation 44.2 fL (35.1-46.3)
[2019-04-10 05:25] LABS: Mean Corpuscular Volume 88 fL (80-100)
--- NOTE | 2019-04-10 05:28 | NUR ---
LAST TURNER SUMMARY PT AAOX4 AND PLEASANT. FINISHED UNIT 2 OF 2 PRBC'S AT START OF SHIFT. HGB UP TO 8.6 THIS AM FROM 6.2 YESTERDAY. PT HAS MANY DEEP DECUBITOUS ULCERS ON BACKSIDE AND LEGS. DRESSINGS C/D/I. PT BED BOUND, USES BEDPAN WITH ASSIST TO VOID. TREATED FOR CHRONIC PAIN X1 WITH OXYCODONE PER EMAR. VSS, WILL CONTINUE TO MONITOR.
[2019-04-10 06:08] LABS: Albumin/Globulin Ratio 0.6 (0.8-1.8); Bilirubin, Total 0.3 mg/dL (0.1-1.0); Bun/Creatinine Ratio 23.6 (12.0-20.0); Calcium, Blood 7.9 mg/dL (8.5-10.1); Creatinine, Blood 1.1 mg/dL (0.40-1.00); Globulin, Blood 3.6 g/dL (2.2-4.0); Potassium, Blood 4.2 mmol/L (3.5-5.5); Total Protein, Blood 5.6 g/dL (6.4-8.2)
--- NOTE | 2019-04-10 17:36 | NUR ---
NO ACUTE CHANGES. DRESSING CHANGED TO RIGHT BUTTOCKS ULCER. WORKED WITH PT AND OT. NO COMPLAINTS THIS SHIFT.
[2019-04-11 06:00] LABS: BASOPHILS ABSOLUTE AUTO 0.02 K/mm3 (0.00-0.23); BASOPHILS PERCENT AUTO 0 % (0-2); EOSINOPHILS ABSOLUTE AUTO 0.21 K/mm3 (0.00-0.68); EOSINOPHILS PERCENT AUTO 4 % (0-6); Hematocrit 29.3 % (33.0-51.0); Hemoglobin 9.5 g/dL (11.5-16.0); IMMATURE GRAN ABSOLUTE AUTO 0.04 K/mm3 (0.00-0.10); IMMATURE GRAN PERCENT AUTO 1 % (0-1); LYMPHOCYTES ABSOLUTE AUTO 1.03 K/mm3 (0.84-5.20); LYMPHOCYTES PERCENT AUTO 17 % (21-46); MONOCYTES ABSOLUTE AUTO 0.72 K/mm3 (0.16-1.47); MONOCYTES PERCENT AUTO 12 % (4-13); Mean Corpuscular HGB 26.8 pg (26.0-34.0); Mean Corpuscular HGB Conc 32.4 g/dL (31.5-36.5); Mean Platelet Volume 10.6 fL (9.1-12.4); NEUTROPHILS ABSOLUTE AUTO 4.06 K/mm3 (1.96-9.15); NEUTROPHILS PERCENT AUTO 67 % (41-73); Platelet Count 252 K/mm3 (150-400); RDW Coefficient Variation 14.9 % (11.7-14.2); RDW Standard Deviation 44.9 fL (35.1-46.3); Red Blood Cell Count 3.54 M/mm3 (3.80-5.20); White Blood Cell Count 6.08 K/mm3 (4.00-11.30)
[2019-04-11 06:10] LABS: Mean Corpuscular Volume 83 fL (80-100)
[2019-04-11 06:20] LABS: Anion Gap 4 mmol/L (6-16); Blood Urea Nitrogen 25 mg/dL (8-24); Bun/Creatinine Ratio 28.6 (12.0-20.0); CO2, Blood 27 mmol/L (21-32); Chloride, Blood 107 mmol/L (98-108); Creatinine, Blood 0.87 mg/dL (0.40-1.00); Glomerular Filtration Rate >60 (60-); Glucose, Blood 59 mg/dL (70-99); Potassium, Blood 3.9 mmol/L (3.5-5.5); Sodium, Blood 138 mmol/L (136-145)
--- NOTE | 2019-04-11 06:41 | NUR ---
SHIFT SUMMARY PT IS A 64 Y/O FEMALE, ADMITTED FOR ANEMIA. SHE IS MORE ALERT, A&O X 3 THOUGH SLEEPY DURING THE NIGHT. PER DR COOPER ORDERS, PT WAS GIVEN 1 UNIT PRBCS IN PREP FOR A SURGICAL I&D AND WOUND VAC PLACEMENT TODAY WITH NO SIDE EFFECTS NOTED. PT HAS BEEN NPO SINCE MIDNIGHT IN PREP FOR SURGERY. SHE WAS MEDICATED ONCE WITH PRN TYLENOL FOR A HEADACHE. NO COMPLAINTS OF SOB OR NAUSEA. VITAL SIGNS STABLE. NO OTHER ACUTE CHANGES IN PT CONDITION NOTED. WILL CONTINUE TO MONITOR AND TREAT PER EMAR UNTIL HAND OFF TO DAY SHIFT RN.
--- NOTE | 2019-04-11 18:19 | NUR ---
SHIFT SUMMARY PT HAS I&D THIS AM WITH DR. SAVAGE. THIS RN MEDICATED X1 FOR PAIN AFTER PROCEDURE. WOUND VAC IN PLACE AND BLOOD DRAINAGE IN CANISTER. DRESSINGS TO OTHER WOUNDS ARE C/D/I. DR. SAVAGE NOTIFIED OF DR. BORREGO BEING OUT OF TOWN AND WON'T BE IN TO SEE PATIENTS UNTIL 04/20/19. NO ACUTE CHANGES THIS SHIFT. CALL LIGHT IN REACH. WILL CONTINUE TO MONITOR AND REPORT TO ONCOMING RN.
[2019-04-11 19:48] LABS: Vancomycin, Trough 15.7 ug/mL (5.0-10.0)
[2019-04-12 04:58] LABS: BASOPHILS ABSOLUTE AUTO 0.03 K/mm3 (0.00-0.23); BASOPHILS PERCENT AUTO 1 % (0-2); EOSINOPHILS ABSOLUTE AUTO 0.28 K/mm3 (0.00-0.68); EOSINOPHILS PERCENT AUTO 5 % (0-6); Hematocrit 28.5 % (33.0-51.0); Hemoglobin 9.2 g/dL (11.5-16.0); IMMATURE GRAN ABSOLUTE AUTO 0.02 K/mm3 (0.00-0.10); IMMATURE GRAN PERCENT AUTO 0 % (0-1); LYMPHOCYTES ABSOLUTE AUTO 0.93 K/mm3 (0.84-5.20); LYMPHOCYTES PERCENT AUTO 17 % (21-46); MONOCYTES ABSOLUTE AUTO 0.61 K/mm3 (0.16-1.47); MONOCYTES PERCENT AUTO 11 % (4-13); Mean Corpuscular HGB 27.5 pg (26.0-34.0); Mean Corpuscular HGB Conc 32.3 g/dL (31.5-36.5); Mean Corpuscular Volume 85 fL (80-100); Mean Platelet Volume 10.1 fL (9.1-12.4); NEUTROPHILS ABSOLUTE AUTO 3.66 K/mm3 (1.96-9.15); NEUTROPHILS PERCENT AUTO 66 % (41-73); Platelet Count 271 K/mm3 (150-400); RDW Coefficient Variation 15.1 % (11.7-14.2); RDW Standard Deviation 45.7 fL (35.1-46.3); Red Blood Cell Count 3.35 M/mm3 (3.80-5.20); White Blood Cell Count 5.53 K/mm3 (4.00-11.30)
[2019-04-12 05:19] LABS: Alanine Aminotransfer (ALT/SGP 18 U/L (12-78); Albumin, Blood 1.9 g/dL (3.4-5.0); Albumin/Globulin Ratio 0.5 (0.8-1.8); Alk Phos 102 U/L (50-136); Anion Gap 3 mmol/L (6-16); Aspartate Aminotrans (AST/SGOT 21 U/L (12-37); Bilirubin, Total 0.2 mg/dL (0.1-1.0); Blood Urea Nitrogen 22 mg/dL (8-24); Bun/Creatinine Ratio 26.9 (12.0-20.0); CO2, Blood 28 mmol/L (21-32); Calcium, Blood 8.1 mg/dL (8.5-10.1); Chloride, Blood 110 mmol/L (98-108); Creatinine, Blood 0.82 mg/dL (0.40-1.00); Globulin, Blood 3.7 g/dL (2.2-4.0); Glomerular Filtration Rate >60 (60-); Glucose, Blood 101 mg/dL (70-99); Potassium, Blood 4.5 mmol/L (3.5-5.5); Sodium, Blood 141 mmol/L (136-145); Total Protein, Blood 5.6 g/dL (6.4-8.2)
--- NOTE | 2019-04-12 05:59 | NUR ---
SHIFT SUMMARY PT POST OP FOR L BUTTOCK I/D WITH DR SAVAGE, VSS. WOUND VAC TO L BUTTOCK IS PATENT AND DRAINING MINIMAL AMOUNT OF BRIGHT RED BLOOD. PT HAS SEVERAL OTHER DECUB ULCERS TO LLE, C/D/I MEPILEX TO WOUNDS. R AKA. PT BEDBOUND, HOWEVER REPOSITIONS SELF IN BED WELL. PT HAS NOT HAD ANY PAIN. PT HAD SOME SOB OVERNIGHT AND WAS PLACED ON 2L VIA NC, NOC O2 IS PT BASELINE. NS RUNNIN @ 80 ML/HR. PM LANTUS HELD. WILL CONT OT MONITOR AND PROVIDE CARE UNTIL PRESUMED BY ONCOMING RN.
--- NOTE | 2019-04-12 18:40 | NUR ---
SHIFT SUMMARY NO ACUTE CHANGES THIS SHIFT. PT HAS BEEN EATING MORE THIS SHIFT. MEDICATED FOR PAIN X1 THIS SHIFT. WOUND VAC IN PLACE AND DRAINING BLOODY DRAINAGE. WAITING FOR RESULTS OF CULTURE OF WOUND DONE DURING I&D TO FOR ANTIBIOTIC COVERAGE FOR DISCHARGE. PT VOIDING AND HAVING BM WITHOUT DIFFICULTY. WILL CONTINUE TO MONITOR AND REPORT TO ONCOMING RN.
--- NOTE | 2019-04-13 | NUR ---
DRESSING CHANGES DRESSING CHANGES COMPLETE TO DECUB ULCERS SCATTERED BLE. WOUNDS CLEANED AND NEW MEPILEX APPLIED TO L HEEL, L ANKLE, L UPPER THIGH, AND R BUTTOCK. WOUND VAC STILL PATIENT, C/D/I TO L BUTTOCK.
[2019-04-13 04:46] LABS: BASOPHILS ABSOLUTE AUTO 0.04 K/mm3 (0.00-0.23); BASOPHILS PERCENT AUTO 1 % (0-2); EOSINOPHILS ABSOLUTE AUTO 0.35 K/mm3 (0.00-0.68); EOSINOPHILS PERCENT AUTO 6 % (0-6); Hematocrit 31.4 % (33.0-51.0); IMMATURE GRAN ABSOLUTE AUTO 0.03 K/mm3 (0.00-0.10); IMMATURE GRAN PERCENT AUTO 1 % (0-1); LYMPHOCYTES ABSOLUTE AUTO 0.95 K/mm3 (0.84-5.20); LYMPHOCYTES PERCENT AUTO 16 % (21-46); MONOCYTES ABSOLUTE AUTO 0.74 K/mm3 (0.16-1.47); MONOCYTES PERCENT AUTO 12 % (4-13); Mean Corpuscular HGB 27.3 pg (26.0-34.0); Mean Corpuscular HGB Conc 31.8 g/dL (31.5-36.5); Mean Corpuscular Volume 86 fL (80-100); Mean Platelet Volume 10.1 fL (9.1-12.4); NEUTROPHILS ABSOLUTE AUTO 3.89 K/mm3 (1.96-9.15); NEUTROPHILS PERCENT AUTO 65 % (41-73); Platelet Count 268 K/mm3 (150-400); RDW Standard Deviation 46.5 fL (35.1-46.3); Red Blood Cell Count 3.66 M/mm3 (3.80-5.20)
[2019-04-13 05:12] LABS: Alanine Aminotransfer (ALT/SGP 17 U/L (12-78); Albumin, Blood 2.4 g/dL (3.4-5.0); Albumin/Globulin Ratio 0.6 (0.8-1.8); Alk Phos 101 U/L (50-136); Anion Gap 5 mmol/L (6-16); Aspartate Aminotrans (AST/SGOT 19 U/L (12-37); Bilirubin, Total 0.3 mg/dL (0.1-1.0); Blood Urea Nitrogen 24 mg/dL (8-24); Bun/Creatinine Ratio 34.5 (12.0-20.0); CO2, Blood 27 mmol/L (21-32); Calcium, Blood 8.7 mg/dL (8.5-10.1); Chloride, Blood 109 mmol/L (98-108); Globulin, Blood 3.7 g/dL (2.2-4.0); Glomerular Filtration Rate >60 (60-); Glucose, Blood 98 mg/dL (70-99); Potassium, Blood 4.3 mmol/L (3.5-5.5); Sodium, Blood 141 mmol/L (136-145); Total Protein, Blood 6.1 g/dL (6.4-8.2)
--- NOTE | 2019-04-13 06:21 | NUR ---
SHIFT SUMMARY DRESSING CHANGES DONE TO SCATTERED ULCERATIONS TO BLE, SEE PRIOR NOTE. WOUND VAC TO L BUTTOCK IS PATENT AND DRAINING SMALL AMOUNT OF DARK RED BLOOD.PT IS A&OX4, BEDBOUND. REPOSITIONS SELF WELL IN BED. PT DENIES ANY PAIN, N/V/D, OR DISCOMFORT. PIC TO LUE IS PATENT AND DRAWING WITH THIS AM LABS; CAPS CHANGED. VANCO AND ROCEPHIN ADMINISTERED PER ORDERS. WILL CONT TO MONITOR AND PROVIDE CARE UNTIL PRESUMED BY ONCOMING RN.
--- NOTE | 2019-04-13 14:35 | NUR ---
DR. SAVAGE ASKED NURSING STAFF TO COMPLETE 1ST DRESSING CHANGE. 1ST WOUND WAV DRESSING CHANGE SCHEDULED FOR TODAY. DR. SAVAGE ASKED TO HAVE NURSING STAFF CHANGE THE DRESSING. WILL CONTINUE TO MONITOR.
--- NOTE | 2019-04-13 18:33 | NUR ---
SHIFT SUMMARY WOUND VAC CHANGED & PICS TAKEN OF WOUND. NO OTHER CHANGES IN ASSESSMENT AT THIS TIME. PT CONTINUES TO WORK WITH PT/OT. MEDICATED FOR PAIN ONCE THIS SHIFT. WILL CONTINUE TO MONITOR UNTIL TURNOVER IS COMPLETE.
[2019-04-13 19:23] LABS: Vancomycin, Trough 17.3 ug/mL (5.0-10.0)
--- NOTE | 2019-04-14 06:20 | NUR ---
SUMMARY: A/OX4, CALLS APPROPRIATELY AND REMAINED IN BED THIS SHIFT W/TURN SCHEDULE MAINTAINED. ATTENDS CHANGED PRN FOR NOCTE INCONTINENCE BUT USED BEDPAN PRN WA. SHE IS W/C BOUND AT BASELINE W/R.AKA BUT WOUNDS TO BUTTOCKS MAKE MOBILITY DIFFICULT, PT/OT INVOLVED. MEPILEXES ARE C/D/I TO R.BUTTOCKS, L.HEEL, L.ANKLE AND L.JEAN. LLE REMAINS ELEVATED FOR FURTHER SBD PREVENTION. L.BUTTOCKS DECUB WOUND HAS WOUND VAC W/DX C/D/I TO 125 MM HG SUCTION, SMALL AMT OF RED/SANGUINOUS OP NOTED. SHE RECIEVED NORCO X1 FOR TOLERABLE CONTROL OF PAIN. CBG WAS 100 SO PT REQUESTED ONLY 10 UNITS LANTUS AT HS TO PREVENT AM HYPOGLYCEMIA HAS OCCURED BEFORE. NO ACUTE CHANGES, VSS/AFEBRILE. PT WILL LIKELY D/C HOME W/HOME HEALTH AND [facility] FOR TRANSFUSIONS. WCTM/REPORT TO DAY RN.
[2019-04-14 07:31] LABS: BASOPHILS ABSOLUTE AUTO 0.03 K/mm3 (0.00-0.23); BASOPHILS PERCENT AUTO 1 % (0-2); EOSINOPHILS ABSOLUTE AUTO 0.38 K/mm3 (0.00-0.68); EOSINOPHILS PERCENT AUTO 6 % (0-6); Hematocrit 32.4 % (33.0-51.0); Hemoglobin 10.1 g/dL (11.5-16.0); IMMATURE GRAN ABSOLUTE AUTO 0.05 K/mm3 (0.00-0.10); IMMATURE GRAN PERCENT AUTO 1 % (0-1); LYMPHOCYTES ABSOLUTE AUTO 0.89 K/mm3 (0.84-5.20); LYMPHOCYTES PERCENT AUTO 15 % (21-46); MONOCYTES ABSOLUTE AUTO 0.61 K/mm3 (0.16-1.47); MONOCYTES PERCENT AUTO 10 % (4-13); Mean Corpuscular HGB 26.4 pg (26.0-34.0); Mean Corpuscular HGB Conc 31.2 g/dL (31.5-36.5); Mean Corpuscular Volume 85 fL (80-100); Mean Platelet Volume 10.2 fL (9.1-12.4); NEUTROPHILS ABSOLUTE AUTO 3.98 K/mm3 (1.96-9.15); NEUTROPHILS PERCENT AUTO 67 % (41-73); Platelet Count 293 K/mm3 (150-400); RDW Coefficient Variation 15.3 % (11.7-14.2); RDW Standard Deviation 45.3 fL (35.1-46.3); Red Blood Cell Count 3.83 M/mm3 (3.80-5.20); White Blood Cell Count 5.94 K/mm3 (4.00-11.30)
[2019-04-14 07:48] LABS: Alanine Aminotransfer (ALT/SGP 16 U/L (12-78); Albumin, Blood 2.2 g/dL (3.4-5.0); Albumin/Globulin Ratio 0.6 (0.8-1.8); Alk Phos 97 U/L (50-136); Anion Gap 3 mmol/L (6-16); Aspartate Aminotrans (AST/SGOT 21 U/L (12-37); Bilirubin, Total 0.3 mg/dL (0.1-1.0); Blood Urea Nitrogen 21 mg/dL (8-24); Bun/Creatinine Ratio 30.4 (12.0-20.0); CO2, Blood 30 mmol/L (21-32); Calcium, Blood 8.6 mg/dL (8.5-10.1); Chloride, Blood 108 mmol/L (98-108); Creatinine, Blood 0.69 mg/dL (0.40-1.00); Globulin, Blood 3.7 g/dL (2.2-4.0); Glomerular Filtration Rate >60 (60-); Glucose, Blood 93 mg/dL (70-99); Sodium, Blood 141 mmol/L (136-145); Total Protein, Blood 5.9 g/dL (6.4-8.2)
--- NOTE | 2019-04-14 18:00 | NUR ---
SHIFT SUMMARY PT CONTINUES TO HAVE ELEVATED BLOOD PRESSURES. MEDICATED NEEDED. WOUND VAC PATENT. OTHER DRESSINGS CHANGED THIS SHIFT. DC PLANNING WORKING TO POSSIBLY DC PT TOMORROW IF POSSIBLE. NO OTHER CHANGES IN ASSESSMENT AT THIS TIME. OTHER VITALS STABLE. WILL CONTINUE TO MONITOR UNTIL TURNOVER IS COMPLETE.
--- NOTE | 2019-04-15 04:48 | NUR ---
Shift summary: Pt slept well most of shift. No c/o discomfort/ No sig changes noted. Wound vac left buttock functioning well. Minimal output. Pt anticipating d/c in am after a wound vac change. Pt requested bedpan x 2 last pm- was not incontinent.
[2019-04-15 05:34] LABS: BASOPHILS ABSOLUTE AUTO 0.05 K/mm3 (0.00-0.23); BASOPHILS PERCENT AUTO 1 % (0-2); EOSINOPHILS ABSOLUTE AUTO 0.41 K/mm3 (0.00-0.68); EOSINOPHILS PERCENT AUTO 6 % (0-6); Hematocrit 32.5 % (33.0-51.0); Hemoglobin 10.3 g/dL (11.5-16.0); IMMATURE GRAN ABSOLUTE AUTO 0.04 K/mm3 (0.00-0.10); IMMATURE GRAN PERCENT AUTO 1 % (0-1); LYMPHOCYTES PERCENT AUTO 19 % (21-46); MONOCYTES PERCENT AUTO 11 % (4-13); Mean Corpuscular HGB 26.8 pg (26.0-34.0); Mean Corpuscular HGB Conc 31.7 g/dL (31.5-36.5); Mean Corpuscular Volume 84 fL (80-100); Mean Platelet Volume 9.9 fL (9.1-12.4); NEUTROPHILS ABSOLUTE AUTO 3.99 K/mm3 (1.96-9.15); NEUTROPHILS PERCENT AUTO 62 % (41-73); Platelet Count 274 K/mm3 (150-400); RDW Coefficient Variation 15.4 % (11.7-14.2); RDW Standard Deviation 45.8 fL (35.1-46.3); Red Blood Cell Count 3.85 M/mm3 (3.80-5.20); White Blood Cell Count 6.39 K/mm3 (4.00-11.30)
[2019-04-15 05:52] LABS: Alanine Aminotransfer (ALT/SGP 16 U/L (12-78); Albumin, Blood 2.2 g/dL (3.4-5.0); Albumin/Globulin Ratio 0.6 (0.8-1.8); Alk Phos 88 U/L (50-136); Anion Gap 5 mmol/L (6-16); Aspartate Aminotrans (AST/SGOT 16 U/L (12-37); Bilirubin, Total 0.2 mg/dL (0.1-1.0); Blood Urea Nitrogen 26 mg/dL (8-24); CO2, Blood 29 mmol/L (21-32); Calcium, Blood 8.8 mg/dL (8.5-10.1); Chloride, Blood 108 mmol/L (98-108); Creatinine, Blood 0.63 mg/dL (0.40-1.00); Globulin, Blood 3.8 g/dL (2.2-4.0); Glomerular Filtration Rate >60 (60-); Glucose, Blood 51 mg/dL (70-99); Potassium, Blood 3.6 mmol/L (3.5-5.5); Sodium, Blood 142 mmol/L (136-145)
--- NOTE | 2019-04-15 07:54 | NUR ---
MORNING LABS SHOWED A BG LEVEL OF 51, RECHECKED AT POC WITH A RESULT OF 43. PROVIDED ORANGE JUICE AND YOGURT. RECHECKED WITH A RESULT OF 85. WILL CONTINUE TO MONITOR AND DISCUSS INSULIN REGIMINE WITH DR. MAAME MARIA.
[2019-04-15] MEDS ORDERED: Juven1 EACH PO (16:06)
[2019-04-15] MEDS ORDERED: ASCO500 PO (16:07)
[2019-04-15] MEDS ORDERED: Rocephin 1g1 G/50 ML IV (16:11)
[2019-04-15] MEDS ORDERED: Culturelle1 CAP PO (16:12)
[2019-04-15] MEDS ORDERED: MIRALAX17 GM PO (16:13)
[2019-04-15] MEDS ORDERED: AMLO10 PO (16:14)
--- NOTE | 2019-04-15 17:13 | NUR ---
CALLED DR. SANCHEZ REPORTED LAST BG 131 AND LAST BP 110/73. DR. SANCHEZ GAVE VERBAL ORDERS TO HAYES NORVASC TO ONCE A DAY, AND LANTUS TO 25 UNITS BID. CALLED [facility] WITH DOSAGE CHANGE.
--- NOTE | 2019-04-15 18:17 | NUR ---
PT DISCHARGED VIA WHEELCHAIR FROM UNIT AND 1808, [facility] TO DRIVE PT HOME. WOUND VAC WAS CHANGED AND HOME WOUND VAC WAS APPLIED AND SENT WITH PT. PHOTOS WERE TAKEN OF WOUND, MEASUREMENTS OBTAINED. PICC LINE WAS KEPT IN PLACE FOR HOME ANTBIOTIC REGIMINE. DRESSING WAS CLEAN DRY AND INTACT, WAS CHANGED 04/13. MADE FOLLOW UP APPOINTMENTS WITH WOUND CLINIC AND PCP. MEDICATIONS FAXED TO [facility].
== END 2019-04-15 18:09 | disposition home health service (06) | DRG 622 ==
LOC: ER 10:43 → MEDS 14:01 → ENPENDDIS 04-15 11:00 → MEDS 04-15 18:09
PROVIDERS: Emergency Medicine; Internal Medicine; Orthopaedic Surgery; ADMIT Family Medicine
PROC: 02HV33Z Insertion of Infusion Device into Superior Vena Cava, Percutaneous Approach (ICD-10-PCS; 2019-04-10)
PROC: 30233N1 Transfusion of Nonautologous Red Blood Cells into Peripheral Vein, Percutaneous Approach (ICD-10-PCS; 2019-04-10)
PROC: 0JBM0ZZ Excision of Left Upper Leg Subcutaneous Tissue and Fascia, Open Approach (ICD-10-PCS; principal; 2019-04-11 09:30)
DX: E11.69 Type 2 diabetes mellitus with other specified complication (principal); G93.41 Metabolic encephalopathy; N39.0 Urinary tract infection, site not specified; M86.652 Other chronic osteomyelitis, left thigh; E11.65 Type 2 diabetes mellitus with hyperglycemia; Z79.4 Long term (current) use of insulin; E11.22 Type 2 diabetes mellitus with diabetic chronic kidney disease; I12.9 Hypertensive chronic kidney disease with stage 1 through stage 4 chronic kidney disease, or unspecified chronic kidney disease; N18.3 Chronic kidney disease, stage 3 (moderate); D63.1 Anemia in chronic kidney disease; E88.09 Other disorders of plasma-protein metabolism, not elsewhere classified; R53.81 Other malaise; L89.159 Pressure ulcer of sacral region, unspecified stage; L89.529 Pressure ulcer of left ankle, unspecified stage; B95.1 Streptococcus, group B, as the cause of diseases classified elsewhere; Z89.611 Acquired absence of right leg above knee; Z85.038 Personal history of other malignant neoplasm of large intestine; B96.1 Klebsiella pneumoniae [K. pneumoniae] as the cause of diseases classified elsewhere; B96.89 Other specified bacterial agents as the cause of diseases classified elsewhere
CPT/HCPCS: 36415; 36430; 36569; 71045; 80048; 80053; 80202; 81001; 82272; 82947; 83036; 83605; 84134; 84443; 85025; 86140; 86850; 86900; 86901; 86923; 87040; 87070; 87075; 87076; 87077; 87086; 87147; 87186; 87205; 93005; 93010; 94640; 94760; 97110; 97162; 97167; 97530; 99285-25; A9270; A9270-GY; C1751; J0360; J0696; J1650; J2405; J2704; J2710; J3010; J3370; J7030; J7050; J7799; P9016; P9046; P9612

== ENCOUNTER 2019-04-20 09:00 | Day surgery (SDC) | payer MEDICARE, OTHER ==
[~2019-04-20 09:00] MED LIST changes: +AMLO10 PO; +ASCO500 PO; +Culturelle1 CAP PO; +Fluoxetine HCl10 M1 PO; +GENPREOPSU BOTHEYES; +Juven1 EACH PO; +NITR.6SL SL; +Rocephin 1g1 G/50 ML IV; +SPIRIVA RESPIMAT4 GM INH
== END 2019-04-20 23:10 | disposition home or self-care (01) ==
LOC: WOUND 09:00
DX: L89.323 Pressure ulcer of left buttock, stage 3 (principal); L89.312 Pressure ulcer of right buttock, stage 2; L89.892 Pressure ulcer of other site, stage 2; E11.622 Type 2 diabetes mellitus with other skin ulcer; L97.321 Non-pressure chronic ulcer of left ankle limited to breakdown of skin; E11.40 Type 2 diabetes mellitus with diabetic neuropathy, unspecified; E11.621 Type 2 diabetes mellitus with foot ulcer; M86.672 Other chronic osteomyelitis, left ankle and foot; E11.51 Type 2 diabetes mellitus with diabetic peripheral angiopathy without gangrene; I70.229 Atherosclerosis of native arteries of extremities with rest pain, unspecified extremity; I10 Essential (primary) hypertension; Z99.3 Dependence on wheelchair; Z89.511 Acquired absence of right leg below knee; Z86.718 Personal history of other venous thrombosis and embolism

== ENCOUNTER 2019-04-27 00:24 | Day surgery (SDC) | payer MEDICARE, OTHER | END 2019-04-27 23:09 | disposition home or self-care (01) | LOC: WOUND 00:24 | DX: L89.324 Pressure ulcer of left buttock, stage 4 (principal); L89.312 Pressure ulcer of right buttock, stage 2; L89.622 Pressure ulcer of left heel, stage 2; E11.622 Type 2 diabetes mellitus with other skin ulcer; L97.329 Non-pressure chronic ulcer of left ankle with unspecified severity; E11.69 Type 2 diabetes mellitus with other specified complication; M86.672 Other chronic osteomyelitis, left ankle and foot; E11.51 Type 2 diabetes mellitus with diabetic peripheral angiopathy without gangrene; I70.229 Atherosclerosis of native arteries of extremities with rest pain, unspecified extremity; E11.40 Type 2 diabetes mellitus with diabetic neuropathy, unspecified; I10 Essential (primary) hypertension; Z89.511 Acquired absence of right leg below knee; Z86.718 Personal history of other venous thrombosis and embolism; Z79.01 Long term (current) use of anticoagulants ==

== ENCOUNTER → 2019-05-01 | Outpatient (CLI) | payer MEDICARE, OTHER ==
[2019-05-01 19:03] LABS: Hematocrit 29.8 % (33.0-51.0); Hemoglobin 9.4 g/dL (11.5-16.0); Mean Corpuscular HGB 27.1 pg (26.0-34.0); Mean Corpuscular HGB Conc 31.5 g/dL (31.5-36.5); Mean Corpuscular Volume 86 fL (80-100); Mean Platelet Volume 10.6 fL (9.1-12.4); Platelet Count 182 K/mm3 (150-400); RDW Coefficient Variation 15.5 % (11.7-14.2); RDW Standard Deviation 48.5 fL (35.1-46.3); Red Blood Cell Count 3.47 M/mm3 (3.80-5.20); White Blood Cell Count 5.62 K/mm3 (4.00-11.30)
[2019-05-01 19:33] LABS: Alanine Aminotransfer (ALT/SGP 8 U/L (12-78); Albumin, Blood 2.6 g/dL (3.4-5.0); Albumin/Globulin Ratio 0.6 (0.8-1.8); Alk Phos 78 U/L (50-136); Anion Gap 5 mmol/L (6-16); Aspartate Aminotrans (AST/SGOT 14 U/L (12-37); Bilirubin, Total 0.3 mg/dL (0.1-1.0); Blood Urea Nitrogen 13 mg/dL (8-24); Bun/Creatinine Ratio 17.4 (12.0-20.0); CO2, Blood 29 mmol/L (21-32); Calcium, Blood 8.5 mg/dL (8.5-10.1); Chloride, Blood 102 mmol/L (98-108); Creatinine, Blood 0.75 mg/dL (0.40-1.00); Glomerular Filtration Rate >60 (60-); Glucose, Blood 200 mg/dL (70-99); Sodium, Blood 136 mmol/L (136-145); Total Protein, Blood 6.6 g/dL (6.4-8.2)
== END | disposition home or self-care (01) ==
LOC: LAB HH 18:54
PROVIDERS: Orthopaedic Surgery
DX: M86.652 Other chronic osteomyelitis, left thigh (principal); L89.324 Pressure ulcer of left buttock, stage 4
CPT/HCPCS: 80053; 85027

== ENCOUNTER 2019-05-04 00:17 | Day surgery (SDC) | payer MEDICARE, OTHER | END 2019-05-04 22:54 | disposition home or self-care (01) | LOC: WOUND 00:17 | DX: L89.324 Pressure ulcer of left buttock, stage 4 (principal); L89.312 Pressure ulcer of right buttock, stage 2; L89.622 Pressure ulcer of left heel, stage 2; E11.621 Type 2 diabetes mellitus with foot ulcer; I10 Essential (primary) hypertension; E11.40 Type 2 diabetes mellitus with diabetic neuropathy, unspecified; I70.229 Atherosclerosis of native arteries of extremities with rest pain, unspecified extremity; Z86.718 Personal history of other venous thrombosis and embolism; Z89.511 Acquired absence of right leg below knee; Z79.01 Long term (current) use of anticoagulants ==

== ENCOUNTER 2019-05-11 00:26 | Day surgery (SDC) | payer MEDICARE, OTHER | END 2019-05-11 23:26 | disposition home or self-care (01) | LOC: WOUND 00:26 | DX: L89.324 Pressure ulcer of left buttock, stage 4 (principal); L89.312 Pressure ulcer of right buttock, stage 2; E11.621 Type 2 diabetes mellitus with foot ulcer; L89.622 Pressure ulcer of left heel, stage 2; E11.40 Type 2 diabetes mellitus with diabetic neuropathy, unspecified; E11.51 Type 2 diabetes mellitus with diabetic peripheral angiopathy without gangrene; I70.229 Atherosclerosis of native arteries of extremities with rest pain, unspecified extremity; Z79.01 Long term (current) use of anticoagulants; Z86.718 Personal history of other venous thrombosis and embolism; Z89.511 Acquired absence of right leg below knee ==

== ENCOUNTER 2019-05-25 00:33 | Day surgery (SDC) | payer MEDICARE, OTHER | END 2019-05-25 22:50 | disposition home or self-care (01) | LOC: WOUND 00:33 | DX: L89.323 Pressure ulcer of left buttock, stage 3 (principal); L89.312 Pressure ulcer of right buttock, stage 2; L89.152 Pressure ulcer of sacral region, stage 2; E11.51 Type 2 diabetes mellitus with diabetic peripheral angiopathy without gangrene; E11.40 Type 2 diabetes mellitus with diabetic neuropathy, unspecified; I70.229 Atherosclerosis of native arteries of extremities with rest pain, unspecified extremity; I10 Essential (primary) hypertension; Z79.01 Long term (current) use of anticoagulants; Z86.718 Personal history of other venous thrombosis and embolism; Z89.511 Acquired absence of right leg below knee; Z79.899 Other long term (current) drug therapy; Z79.4 Long term (current) use of insulin ==

== ENCOUNTER 2019-06-10 00:17 | Day surgery (SDC) | payer MEDICARE, OTHER | END 2019-06-10 23:00 | disposition home or self-care (01) | LOC: WOUND 00:17 | DX: L89.323 Pressure ulcer of left buttock, stage 3 (principal); L89.312 Pressure ulcer of right buttock, stage 2; L89.152 Pressure ulcer of sacral region, stage 2; S91.302D Unspecified open wound, left foot, subsequent encounter; E11.40 Type 2 diabetes mellitus with diabetic neuropathy, unspecified; Z79.01 Long term (current) use of anticoagulants; Z86.718 Personal history of other venous thrombosis and embolism; Z89.511 Acquired absence of right leg below knee; Z79.4 Long term (current) use of insulin; Z79.899 Other long term (current) drug therapy | CPT/HCPCS: 87071; 87075; 87076; 87077; 87147; 87186; 87205 ==

== ENCOUNTER 2019-06-12 14:19 | Day surgery (SDC) | payer MEDICARE, OTHER | END 2019-06-12 23:00 | disposition home or self-care (01) | LOC: WOUND 14:19 | DX: L89.323 Pressure ulcer of left buttock, stage 3 (principal); L89.312 Pressure ulcer of right buttock, stage 2; L89.152 Pressure ulcer of sacral region, stage 2; S91.302D Unspecified open wound, left foot, subsequent encounter; E11.40 Type 2 diabetes mellitus with diabetic neuropathy, unspecified; Z79.01 Long term (current) use of anticoagulants; Z79.4 Long term (current) use of insulin; Z86.718 Personal history of other venous thrombosis and embolism; Z89.511 Acquired absence of right leg below knee; Z79.899 Other long term (current) drug therapy ==

== ENCOUNTER 2019-06-17 13:50 | Day surgery (SDC) | payer MEDICARE, OTHER | END 2019-06-17 22:41 | disposition home or self-care (01) | LOC: WOUND 13:50 | DX: L89.323 Pressure ulcer of left buttock, stage 3 (principal); L89.312 Pressure ulcer of right buttock, stage 2; L89.152 Pressure ulcer of sacral region, stage 2; S91.302D Unspecified open wound, left foot, subsequent encounter; E11.40 Type 2 diabetes mellitus with diabetic neuropathy, unspecified; Z86.718 Personal history of other venous thrombosis and embolism; Z89.511 Acquired absence of right leg below knee; Z79.01 Long term (current) use of anticoagulants; Z79.4 Long term (current) use of insulin; Z79.899 Other long term (current) drug therapy ==

== ENCOUNTER 2019-06-22 09:45 | Day surgery (SDC) | payer MEDICARE, OTHER | END 2019-06-22 23:16 | disposition home or self-care (01) | LOC: WOUND 09:45 | DX: L89.323 Pressure ulcer of left buttock, stage 3 (principal); L89.312 Pressure ulcer of right buttock, stage 2; S91.302D Unspecified open wound, left foot, subsequent encounter; E11.40 Type 2 diabetes mellitus with diabetic neuropathy, unspecified; Z86.718 Personal history of other venous thrombosis and embolism; Z89.511 Acquired absence of right leg below knee; Z79.01 Long term (current) use of anticoagulants; Z79.899 Other long term (current) drug therapy; Z79.4 Long term (current) use of insulin ==

== ENCOUNTER 2019-06-29 10:00 | Day surgery (SDC) | payer MEDICARE, OTHER ==
[2019-07-15] MEDS ORDERED: Anti-Diarrheal2 MG PO (13:53)
== END 2019-06-29 23:10 | disposition home or self-care (01) ==
LOC: WOUND 10:00
DX: I96 Gangrene, not elsewhere classified (principal); L89.324 Pressure ulcer of left buttock, stage 4; L89.310 Pressure ulcer of right buttock, unstageable; L89.150 Pressure ulcer of sacral region, unstageable; L89.622 Pressure ulcer of left heel, stage 2; E11.40 Type 2 diabetes mellitus with diabetic neuropathy, unspecified; I10 Essential (primary) hypertension; J44.9 Chronic obstructive pulmonary disease, unspecified; E11.36 Type 2 diabetes mellitus with diabetic cataract; H26.9 Unspecified cataract; D64.9 Anemia, unspecified; G47.30 Sleep apnea, unspecified; I25.10 Atherosclerotic heart disease of native coronary artery without angina pectoris; M06.9 Rheumatoid arthritis, unspecified; E11.52 Type 2 diabetes mellitus with diabetic peripheral angiopathy with gangrene; Z99.3 Dependence on wheelchair; Z86.718 Personal history of other venous thrombosis and embolism; Z89.511 Acquired absence of right leg below knee; Z79.4 Long term (current) use of insulin; Z79.01 Long term (current) use of anticoagulants; Z79.899 Other long term (current) drug therapy; Z86.73 Personal history of transient ischemic attack (TIA), and cerebral infarction without residual deficits; Z88.0 Allergy status to penicillin; Z88.6 Allergy status to analgesic agent

== ENCOUNTER 2019-07-06 09:40 | Day surgery (SDC) | payer MEDICARE, OTHER ==
[2019-07-15] MEDS ORDERED: Anti-Diarrheal2 MG PO (13:53)
== END 2019-07-06 22:46 | disposition home or self-care (01) ==
LOC: WOUND 09:40
DX: L89.323 Pressure ulcer of left buttock, stage 3 (principal); L89.312 Pressure ulcer of right buttock, stage 2; L89.152 Pressure ulcer of sacral region, stage 2; S91.302D Unspecified open wound, left foot, subsequent encounter; Z86.718 Personal history of other venous thrombosis and embolism; Z89.511 Acquired absence of right leg below knee; Z79.01 Long term (current) use of anticoagulants; Z79.4 Long term (current) use of insulin; Z79.899 Other long term (current) drug therapy

== ENCOUNTER → 2019-07-07 | Outpatient (CLI) | payer MEDICARE, OTHER ==
[~2019-07-07] MED LIST changes: +Anti-Diarrheal2 MG PO; +Naproxen250 MG PO
== END | disposition home or self-care (01) ==
LOC: LAB 12:12 → LAB SHORT 12:12
DX: N39.0 Urinary tract infection, site not specified (principal)
CPT/HCPCS: 87086; 87147

== ENCOUNTER → 2019-07-15 | Outpatient (CLI) | payer MEDICARE, OTHER ==
[2019-07-15 19:52] LABS: International Normalized Ratio 1.05; Prothrombin Time Results 11.1 Sec (9.7-11.5)
[2019-07-15 19:54] LABS: Alanine Aminotransfer (ALT/SGP 11 U/L (12-78); Albumin, Blood 2.4 g/dL (3.4-5.0); Albumin/Globulin Ratio 0.6 (0.8-1.8); Alk Phos 54 U/L (50-136); Anion Gap 7 mmol/L (6-16); Aspartate Aminotrans (AST/SGOT 16 U/L (12-37); Bilirubin, Total 0.3 mg/dL (0.1-1.0); Blood Urea Nitrogen 24 mg/dL (8-24); Bun/Creatinine Ratio 27.6 (12.0-20.0); CO2, Blood 23 mmol/L (21-32); Calcium, Blood 8.3 mg/dL (8.5-10.1); Chloride, Blood 106 mmol/L (98-108); Creatinine, Blood 0.87 mg/dL (0.40-1.00); Glomerular Filtration Rate >60 (60-); Glucose, Blood 184 mg/dL (70-99); Potassium, Blood 4.5 mmol/L (3.5-5.5); Sodium, Blood 136 mmol/L (136-145); Total Protein, Blood 6.4 g/dL (6.4-8.2)
== END | disposition home or self-care (01) ==
LOC: LAB SHORT 19:10 → LAB 19:10
PROVIDERS: Nurse Practitioner Family
DX: Z01.812 Encounter for preprocedural laboratory examination (principal); E11.9 Type 2 diabetes mellitus without complications
CPT/HCPCS: 80053; 83036; 85610; 85730

== ENCOUNTER 2019-07-16 11:56 | Day surgery (SDC) | payer MEDICARE, OTHER ==
[~2019-07-16] VITALS: Ht 162.6 cm; Wt 71.8 kg
[~2019-07-16 11:56] MED LIST changes: -Naproxen250 MG PO
--- NOTE | 2019-07-16 12:36 | NUR ---
History, Chart, Medications and Allergies reviewed before start of procedure. Patient confirms NPO status and agrees with scheduled surgery. Pre-Op teaching done. Pt verbalizes understanding. Lungs clear T/O to Auscultation.
[2019-07-16] MEDS ORDERED: Naproxen250 MG PO (12:46)
--- NOTE | 2019-07-16 13:03 | NUR ---
PATIENTS BLOOD SURGAR 58. NOTIFIED DR ARGUELLO, ANESTHESIOLOGIST. NEW VERBAL ORDER TO GIVE D5 300CC BOLUS. PT STATES SYMPTOMATIC, BLURRED VISION, AND WEAKNESS. WILL RECHECK CBG AFTER IVF'S GIVEN.
--- NOTE | 2019-07-16 16:33 | NUR ---
LATE ENTRY 1558 PT INTO STEP. RECEIVED REPORT FROM RIZWAN ALFARO. VSS. PT STATES SHE NEEDS TO "URINATE" PT ASSISTED ONTO BEDPAN. POSTIVE VOID. PT EATING GRAHM CRACKERS AND TOLERATING ORAL FLUIDS. WILL CONTINUE TO MONITOR.
--- NOTE | 2019-07-16 16:35 | NUR ---
REPORT GIVEN TO RIZWAN PANG.
--- NOTE | 2019-07-16 18:00 | NUR ---
IV DC BY DALE ASTORGA. Discharge instructions reviewed with patient. Patient verbalizes understanding. Copy given to patient to take home. [facility] CALLED FOR PT RIDE HOME FIRST AT 1726. STATED THEY WOULD CALL WHEN ARRIVED FOR US TO W/C PT OUT TO THEM. SECOND CALL AT 1800. STATED THE PERSON PICKING UP THE PT WOULD BE HERE ANY MINUTE. RN WHO CALLED INFORMED THEM PT IS WAITING IN [facility] FOR ARRIVAL.
--- NOTE | 2019-07-16 18:13 | NUR ---
[facility] CALLED A THIRD TIME AT 1810. PERSON WHO ANSWERED STATED THEY HAD MECHANICAL ISSUES AND HAD TO RETURN TO GET ANOTHER VEHICLE. THEY WILL BE ON THEIR WAY SOON POSSIBLE. PT REMAINS WAITING IN [facility] IN PERSONAL W/C. OFFERED HER CRACKERS, JELLO, FLUIDS. PT GLADLY ACCEPTED AND TOLERATED EATING/DRINKING PO. WILL REMIAN IN SDS UNTIL [facility] ARRIVES FOR TRANSPORT HOME.
--- NOTE | 2019-07-16 18:45 | NUR ---
PT DISCHARGED IN PRIVATE WHEELCHAIR TO [facility] FOR RIDE HOME AT 1842.
== END 2019-07-16 23:07 | disposition home or self-care (01) ==
LOC: ORSCMMR 11:56 → ORD 07-17 07:30
PROVIDERS: Surgery
PROC: 0JB70ZZ Excision of Back Subcutaneous Tissue and Fascia, Open Approach (ICD-10-PCS; principal; 2019-07-16 13:15)
DX: L89.309 Pressure ulcer of unspecified buttock, unspecified stage (principal); E11.9 Type 2 diabetes mellitus without complications; E78.5 Hyperlipidemia, unspecified; G47.33 Obstructive sleep apnea (adult) (pediatric); I73.9 Peripheral vascular disease, unspecified; Z79.4 Long term (current) use of insulin; Z79.899 Other long term (current) drug therapy; Z87.891 Personal history of nicotine dependence
CPT/HCPCS: 82947; J0360; J0690; J2704; J3010; J7070; J7120

== ENCOUNTER 2019-07-20 09:57 | Day surgery (SDC) | payer MEDICARE, OTHER ==
[~2019-07-20 09:57] MED LIST changes: +Naproxen250 MG PO
== END 2019-07-20 22:57 | disposition home or self-care (01) ==
LOC: WOUND 09:57
DX: L89.323 Pressure ulcer of left buttock, stage 3 (principal); L89.312 Pressure ulcer of right buttock, stage 2; L89.152 Pressure ulcer of sacral region, stage 2; S91.302D Unspecified open wound, left foot, subsequent encounter; E11.40 Type 2 diabetes mellitus with diabetic neuropathy, unspecified; M86.672 Other chronic osteomyelitis, left ankle and foot; J44.9 Chronic obstructive pulmonary disease, unspecified; I10 Essential (primary) hypertension; I70.229 Atherosclerosis of native arteries of extremities with rest pain, unspecified extremity; Z86.718 Personal history of other venous thrombosis and embolism; Z89.511 Acquired absence of right leg below knee; Z79.01 Long term (current) use of anticoagulants; Z22.322 Carrier or suspected carrier of Methicillin resistant Staphylococcus aureus; Z79.4 Long term (current) use of insulin; Z79.899 Other long term (current) drug therapy

== ENCOUNTER 2019-07-22 11:42 | Inpatient (IN) | payer MEDICARE, OTHER ==
[~2019-07-22] VITALS: Ht 162.6 cm; Wt 63.5 kg
[2019-07-22 12:12] LABS: BASOPHILS ABSOLUTE AUTO 0.02 K/mm3 (0.00-0.23); BASOPHILS PERCENT AUTO 0 % (0-2); EOSINOPHILS ABSOLUTE AUTO 0.03 K/mm3 (0.00-0.68); EOSINOPHILS PERCENT AUTO 0 % (0-6); Hematocrit 24.1 % (33.0-51.0); Hemoglobin 7.8 g/dL (11.5-16.0); IMMATURE GRAN ABSOLUTE AUTO 0.06 K/mm3 (0.00-0.10); IMMATURE GRAN PERCENT AUTO 0 % (0-1); LYMPHOCYTES ABSOLUTE AUTO 0.32 K/mm3 (0.84-5.20); LYMPHOCYTES PERCENT AUTO 2 % (21-46); MONOCYTES ABSOLUTE AUTO 0.66 K/mm3 (0.16-1.47); MONOCYTES PERCENT AUTO 5 % (4-13); Mean Corpuscular HGB 27.3 pg (26.0-34.0); Mean Corpuscular HGB Conc 32.4 g/dL (31.5-36.5); Mean Corpuscular Volume 84 fL (80-100); Mean Platelet Volume 10.8 fL (9.1-12.4); NEUTROPHILS ABSOLUTE AUTO 12.31 K/mm3 (1.96-9.15); NEUTROPHILS PERCENT AUTO 92 % (41-73); Platelet Count 195 K/mm3 (150-400); RDW Coefficient Variation 14.9 % (11.7-14.2); RDW Standard Deviation 46.4 fL (35.1-46.3); Red Blood Cell Count 2.86 M/mm3 (3.80-5.20)
[2019-07-22] MEDS ORDERED: Prozac20 MG PO (12:13)
[2019-07-22 12:26] LABS: Alanine Aminotransfer (ALT/SGP 22 U/L (12-78); Albumin/Globulin Ratio 0.5 (0.8-1.8); Alk Phos 113 U/L (50-136); Anion Gap 7 mmol/L (6-16); Aspartate Aminotrans (AST/SGOT 55 U/L (12-37); Bilirubin, Total 0.7 mg/dL (0.1-1.0); Blood Urea Nitrogen 23 mg/dL (8-24); CO2, Blood 23 mmol/L (21-32); Chloride, Blood 100 mmol/L (98-108); Creatinine, Blood 0.89 mg/dL (0.40-1.00); Globulin, Blood 4.1 g/dL (2.2-4.0); Glomerular Filtration Rate >60 (60-); Glucose, Blood 130 mg/dL (70-99); Potassium, Blood 4.4 mmol/L (3.5-5.5); Sodium, Blood 130 mmol/L (136-145); Total Protein, Blood 6.1 g/dL (6.4-8.2)
[2019-07-22 15:03] LABS: International Normalized Ratio 1.14; Prothrombin Time Results 11.9 Sec (9.7-11.5)
[2019-07-22 16:33] LABS: Source, Urine Catheter
[2019-07-22 16:35] LABS: Bilirubin, Urine Neg (Neg); Blood, Urine 5+ (Neg); Glucose Qualitative, Urine Neg (Neg); Ketones, Urine Neg (Neg); Leukocyte Esterase, Urine 1+ (Neg); Nitrite, Urine Neg (Neg); Protein, Urine 3+ (Neg); Urobilinogen, Urine NORM (Normal)
[2019-07-22 16:42] LABS: Appearance, Urine Cloudy (Clear); Color, Urine Yellow (P-Yellow)
[2019-07-22 16:50] LABS: Squamous Epithelial Cells Few /hpf (Few)
[2019-07-22 16:51] LABS: Amorphous Mod (0-Heavy); Bacteria Mod /hpf
[2019-07-22 19:10] LABS: Hematocrit 23.5 % (33.0-51.0); Hemoglobin 7.5 g/dL (11.5-16.0)
--- NOTE | 2019-07-22 20:13 | NUR ---
ADMIT NOTE RECEIVED REPORT FROM RIZWAN KONG IN ED. PT TO ROOM VIA GURNEY AT 1720, 3 PERSON ASSIST TO BED. PT ORIENTED TO ROOM AND CALL LIGHT. PT EDUCATED ON FALL RISK, USE OF BED ALARM AND CALL LIGHT. PT REPORTS HAVING I&D FIVE DAYS AGO WITH WOUND VAC PLACEMENT AND THEN 2 DAYS AGO THE WOUND VAC DRESSING REPLACED. PT REPORTS HAVE INCREASED PAIN WOUND ON BOTTOCKS AND COCCYX AND FEVER THIS AM. ADDITIONAL WOUND NOTED ON LEFT HEAL, MEPILEX IN PLACE. PT A&Ox4. CALM AND COOPERATIVE WTIH CARE. ASSIST WITH REPOSITIONING. PT SPO2 >94% ON RA. PT STATES SHE WEAR O2 AT [facility] AT HOME. LS CLEAR, BREATHING EVEN AND UNLABORED. PT USING BEDPAN. PT RECEIVING IV ANTIBIOTICS AND FLUIDS. R AKA. PT IS WHEELCHAIR BOUND AT BASELINE, ABLE TO LIVE IND IN APPARTMENT. HAS ROOMMATE THAT HELP AROUND THE HOUSE, CAREGIVERS AND HOME HEALTH. DR SAVAGE CONSULTED, NEW ORDERS FROM [facility], TO CANCEL CONSULT AND NEW PROVIDER CONSULT FOR DR NELLY RICE 07/23/19, ATTEMPTED TO CALL IN, HOWEVER, [facility] RN WILL NEED TO CALL AFTER 10:00PM. DR WATKINS CONSULTED, NEW ORDERS FOR HEPARIN PER PHARMACY. CALLED DR WATKINS TO CLARIFY HEPARIN AND NOTIFY OF H&H, NEW ORDERS TO D/C HEPARIN, TREND H&H AND MONITOR PT. VSS. NO OTHER ACUTE CHANGES NOTED DURING SHIFT. REPORT GIVEN TO CHANCE ASTORGA.
--- NOTE | 2019-07-22 21:50 | NUR ---
1929 RIGHT HEEL WOUND OLD MEPLEX DRESSING REMOVED; PHOTO TAKEN (CONSENT OBTAINED), SITE CLEANSED, ALGINATE TO WOUND BED WITH NEW MEPLEX APPLIED. 2114 DR SAVAGE AT BEDSIDE.
[2019-07-22 23:28] LABS: Hematocrit 21.3 % (33.0-51.0); Hemoglobin 6.8 g/dL (11.5-16.0)
[2019-07-23 01:19] LABS: Source, Urine Catheter
[2019-07-23 01:21] LABS: Bilirubin, Urine Neg (Neg); Blood, Urine 5+ (Neg); Glucose Qualitative, Urine Neg (Neg); Ketones, Urine Neg (Neg); Leukocyte Esterase, Urine 1+ (Neg); Nitrite, Urine Neg (Neg); Protein, Urine 3+ (Neg); Specific Gravity, Urine 1.015 (1.003-1.022); Urobilinogen, Urine NORM (Normal)
[2019-07-23 01:26] LABS: Appearance, Urine Hazy (Clear); Color, Urine Amber (P-Yellow)
[2019-07-23 01:27] LABS: Amorphous Light (0-Heavy); Bacteria Mod /hpf; Squamous Epithelial Cells Few /hpf (Few)
[2019-07-23 03:46] LABS: BASOPHILS ABSOLUTE AUTO 0.02 K/mm3 (0.00-0.23); BASOPHILS PERCENT AUTO 0 % (0-2); EOSINOPHILS ABSOLUTE AUTO 0.24 K/mm3 (0.00-0.68); EOSINOPHILS PERCENT AUTO 3 % (0-6); Hematocrit 21.8 % (33.0-51.0); IMMATURE GRAN ABSOLUTE AUTO 0.03 K/mm3 (0.00-0.10); IMMATURE GRAN PERCENT AUTO 0 % (0-1); LYMPHOCYTES ABSOLUTE AUTO 0.61 K/mm3 (0.84-5.20); LYMPHOCYTES PERCENT AUTO 6 % (21-46); MONOCYTES ABSOLUTE AUTO 0.69 K/mm3 (0.16-1.47); MONOCYTES PERCENT AUTO 7 % (4-13); Mean Corpuscular HGB Conc 32.1 g/dL (31.5-36.5); Mean Corpuscular Volume 84 fL (80-100); Mean Platelet Volume 10.8 fL (9.1-12.4); NEUTROPHILS ABSOLUTE AUTO 8.03 K/mm3 (1.96-9.15); NEUTROPHILS PERCENT AUTO 84 % (41-73); Platelet Count 164 K/mm3 (150-400); RDW Standard Deviation 46.2 fL (35.1-46.3); Red Blood Cell Count 2.59 M/mm3 (3.80-5.20); White Blood Cell Count 9.62 K/mm3 (4.00-11.30)
[2019-07-23 04:07] LABS: Alanine Aminotransfer (ALT/SGP 17 U/L (12-78); Albumin, Blood 1.7 g/dL (3.4-5.0); Albumin/Globulin Ratio 0.4 (0.8-1.8); Alk Phos 93 U/L (50-136); Anion Gap 7 mmol/L (6-16); Aspartate Aminotrans (AST/SGOT 29 U/L (12-37); Bilirubin, Total 0.4 mg/dL (0.1-1.0); Blood Urea Nitrogen 22 mg/dL (8-24); Bun/Creatinine Ratio 26.5 (12.0-20.0); CO2, Blood 22 mmol/L (21-32); Calcium, Blood 7.6 mg/dL (8.5-10.1); Chloride, Blood 103 mmol/L (98-108); Creatinine, Blood 0.83 mg/dL (0.40-1.00); Globulin, Blood 3.9 g/dL (2.2-4.0); Glomerular Filtration Rate >60 (60-); Glucose, Blood 160 mg/dL (70-99); Magnesium, Blood 1.6 mg/dL (1.6-2.4); Sodium, Blood 132 mmol/L (136-145); Total Protein, Blood 5.6 g/dL (6.4-8.2)
--- NOTE | 2019-07-23 06:07 | NUR ---
SHIFT SUMMARY: 64 Y/O FEMALE HAD RESTLESS SHIFT ALL NIGHT; SEE PREVIOUS NURSING NOTES REGARDING ENTIRE WOUNDS TO RIGHT HIP AND COCCYX--DRESSING THAT WAS APPLIED AT 0100 STAYED INTACT WITH WOUND VAC MACHINE PLACED ON CLOTHING DESK BESIDE BED; C/O PAIN TO COCCYX AT TIMES THROUGHOUT SHIFT WITH FENTANYL 50MCG IVP GIVEN TWICE WITH RELIEF FELT; PT ALSO WAS GIVEN PERCOCET 5MG PO X 1 WITH RELIEF FELT (C/O PAIN 03/07 PRIOR BOTH MEDS GIVEN); TAPIA DRAINING DARK YELLOW FLUID--220ML OUTPUT NOTED; DENIES NAUSEA; BED ALARM APPLIED, BED LOW POSITION WITH CALL LIGHT AT SIDE.
[2019-07-23 07:23] LABS: Hematocrit 22.6 % (33.0-51.0); Hemoglobin 7.3 g/dL (11.5-16.0)
--- NOTE | 2019-07-23 10:27 | NUR ---
Dr. Ballard and Dr. Schneider here to see the pt's wounds. New orders received for wound vac and dressing changes.
--- NOTE | 2019-07-23 13:03 | NUR ---
Pt has been alert and oriented this shift, VSS, see shift assessment for detailed systems assessment. Pt breathing even and unlabored on RA. Dr. Schneider in multiple times this shift, organizing and facilitating care for pt. Dr. Ballard in to see pt, Dr. Heredia in to see pt, and Dr. Kerr in to see pt. Pt with extensive wounds to coccyx,hips,thighs. Visualized by this RN, dressings changed multiple times this shift d/t drainage and soiled with two BMs. Dr. Ballard and Dr. Schneider also visualized wounds. Dressings and drainage management ordered. Pt initially seen by Dr. Heredia and was planned for revasc procedure this afternoon. Per Dr. Schneider and Dr. Ballard, pt to be COBRA transferred to [facility] once bed opens. Per Dr. Schneider, cancel with Dr. Heredia. Dr. Heredia called and message left. Awaiting call back at this time to confirm cancelled procedure. Pt recieved one unit PRBC this shift per orders. Pt tolerated blood transfusion WNL. Blood transfusion almost complete at this time, currenly flushing line with NS. Pt updated on plan of care. Currently resting in bed. Pain has been uncontrolled this shift. No acute concerns to note. Will continue monitoring and providing care per orders.
[2019-07-23 13:38] LABS: Stool Occult Blood Guaiac 1 Neg (Neg)
--- NOTE | 2019-07-23 17:44 | NUR ---
PT LEFT WITH EMS AT 1744. REPORT GIVEN TO EMS PERSONS. PT ALERT AND ORIENTED AT TIME OF TRANSFER, VSS, DENIES ACUTE NEEDS, NO ACUTE CHANGES FROM INITIAL SHIFT ASSESSMENT. PT REMAINS ON RA AND BREATHING EVEN AND UNLABORED. ALL WOUNDS PACKED WITH WET TO DRY PER ORDERS. PT WITH NO FURTHER QUESTIONS AT TIME OF DISCHARGE. [facility] 10A RECEIVING UNIT AWARE OF TRANSFER AND THIS RN SPOKE WITH 10A CHARGE NURSE. THIS RN ATTEMPTED TO GIVE REPORT BUT PER CHARGE NURSE AT [facility], WAIT TO GIVE REPORT UNTIL THE NANOTECHNICIAN ARRIVES BECAUSE THEY WILL ASSUME CARE
--- NOTE | 2019-07-23 17:59 | NUR ---
Inital spiritual care note: Kailee expressed fear about being sent to [facility] this afternoon. She admits she is weary of this on-going illness and is hopeful [facility] will be able to cure her wounds. She lives with a roommate--a friend she has known for 30+ years. Kailee responded well to spiritual encouragement, gentle middle school guidance counselor, and prayer.
== END 2019-07-23 17:49 | disposition short-term general hospital (02) | DRG 871 ==
LOC: ER 11:42 → PCU 14:54
PROVIDERS: Emergency Medicine; Nurse Practitioner Acute Care; ADMIT Internal Medicine
DX: A41.9 Sepsis, unspecified organism (principal); L89.154 Pressure ulcer of sacral region, stage 4; L89.324 Pressure ulcer of left buttock, stage 4; L89.623 Pressure ulcer of left heel, stage 3; L03.312 Cellulitis of back [any part except buttock and flank]; M86.652 Other chronic osteomyelitis, left thigh; M86.152 Other acute osteomyelitis, left femur; Z89.619 Acquired absence of unspecified leg above knee; Z79.4 Long term (current) use of insulin; J44.9 Chronic obstructive pulmonary disease, unspecified; Z87.891 Personal history of nicotine dependence; N18.3 Chronic kidney disease, stage 3 (moderate); R19.00 Intra-abdominal and pelvic swelling, mass and lump, unspecified site; I70.201 Unspecified atherosclerosis of native arteries of extremities, right leg; Z85.048 Personal history of other malignant neoplasm of rectum, rectosigmoid junction, and anus; G47.33 Obstructive sleep apnea (adult) (pediatric); E11.51 Type 2 diabetes mellitus with diabetic peripheral angiopathy without gangrene; E11.69 Type 2 diabetes mellitus with other specified complication
CPT/HCPCS: 36415; 36430; 51702; 74177; 80053; 81001; 82272; 82728; 82947; 83540; 83550; 83605; 83735; 85014; 85018; 85025; 85610; 85651; 86140; 86850; 86900; 86901; 86923; 87040; 87086; 94640; 94760; 96361; 96365-59; 96367; 99285-25; C9113; J0696; J2020; J3010; J3370; J7030; J7050; P9016; P9612; Q9967

== ENCOUNTER 2019-08-14 01:10 | Day surgery (SDC) | payer MEDICARE, OTHER | END 2019-08-14 23:10 | disposition home or self-care (01) | LOC: WOUND 01:10 | DX: L89.324 Pressure ulcer of left buttock, stage 4 (principal); L89.313 Pressure ulcer of right buttock, stage 3; L89.314 Pressure ulcer of right buttock, stage 4; C21.1 Malignant neoplasm of anal canal; E11.40 Type 2 diabetes mellitus with diabetic neuropathy, unspecified; J44.9 Chronic obstructive pulmonary disease, unspecified; I10 Essential (primary) hypertension; Z89.511 Acquired absence of right leg below knee; Z86.73 Personal history of transient ischemic attack (TIA), and cerebral infarction without residual deficits; Z87.891 Personal history of nicotine dependence; Z88.0 Allergy status to penicillin; Z88.6 Allergy status to analgesic agent; Z79.899 Other long term (current) drug therapy; Z79.4 Long term (current) use of insulin | CPT/HCPCS: G0463 ==

== ENCOUNTER 2019-09-02 00:17 | Day surgery (SDC) | payer MEDICARE, OTHER | END 2019-09-02 23:13 | disposition home or self-care (01) | LOC: WOUND 00:17 | DX: L89.313 Pressure ulcer of right buttock, stage 3 (principal); L89.314 Pressure ulcer of right buttock, stage 4; L89.153 Pressure ulcer of sacral region, stage 3; E11.621 Type 2 diabetes mellitus with foot ulcer; C21.1 Malignant neoplasm of anal canal; E11.40 Type 2 diabetes mellitus with diabetic neuropathy, unspecified; L89.323 Pressure ulcer of left buttock, stage 3; L97.529 Non-pressure chronic ulcer of other part of left foot with unspecified severity; Z89.511 Acquired absence of right leg below knee; Z79.899 Other long term (current) drug therapy; Z79.4 Long term (current) use of insulin ==

== ENCOUNTER 2019-09-09 00:18 | Day surgery (SDC) | payer MEDICARE, OTHER | END 2019-09-09 22:59 | disposition home or self-care (01) | LOC: WOUND 00:18 | DX: L89.313 Pressure ulcer of right buttock, stage 3 (principal); L89.314 Pressure ulcer of right buttock, stage 4; L89.153 Pressure ulcer of sacral region, stage 3; C21.1 Malignant neoplasm of anal canal; E11.40 Type 2 diabetes mellitus with diabetic neuropathy, unspecified; L89.323 Pressure ulcer of left buttock, stage 3; Z89.511 Acquired absence of right leg below knee; Z79.899 Other long term (current) drug therapy; Z79.4 Long term (current) use of insulin ==

== ENCOUNTER 2019-09-16 00:24 | Day surgery (SDC) | payer MEDICARE, OTHER | END 2019-09-16 03:36 | disposition home or self-care (01) | LOC: WOUND 00:24 | DX: L89.313 Pressure ulcer of right buttock, stage 3 (principal); L89.314 Pressure ulcer of right buttock, stage 4; L89.153 Pressure ulcer of sacral region, stage 3; E11.621 Type 2 diabetes mellitus with foot ulcer; E11.51 Type 2 diabetes mellitus with diabetic peripheral angiopathy without gangrene; C21.1 Malignant neoplasm of anal canal; E11.40 Type 2 diabetes mellitus with diabetic neuropathy, unspecified; L89.323 Pressure ulcer of left buttock, stage 3; J44.9 Chronic obstructive pulmonary disease, unspecified; I10 Essential (primary) hypertension; L97.509 Non-pressure chronic ulcer of other part of unspecified foot with unspecified severity; Z89.511 Acquired absence of right leg below knee; Z79.899 Other long term (current) drug therapy; Z79.4 Long term (current) use of insulin ==

== ENCOUNTER 2019-09-23 00:33 | Day surgery (SDC) | payer MEDICARE, OTHER | END 2019-09-23 22:55 | disposition home or self-care (01) | LOC: WOUND 00:33 | DX: L89.313 Pressure ulcer of right buttock, stage 3 (principal); L89.314 Pressure ulcer of right buttock, stage 4; L89.153 Pressure ulcer of sacral region, stage 3; E11.621 Type 2 diabetes mellitus with foot ulcer; C21.1 Malignant neoplasm of anal canal; E11.40 Type 2 diabetes mellitus with diabetic neuropathy, unspecified; L89.323 Pressure ulcer of left buttock, stage 3; L97.509 Non-pressure chronic ulcer of other part of unspecified foot with unspecified severity; Z89.511 Acquired absence of right leg below knee; Z79.899 Other long term (current) drug therapy; Z79.4 Long term (current) use of insulin ==

== ENCOUNTER 2019-09-30 03:11 | Day surgery (SDC) | payer MEDICARE, OTHER | END 2019-09-30 22:58 | disposition home or self-care (01) | LOC: WOUND 03:11 | DX: L89.313 Pressure ulcer of right buttock, stage 3 (principal); L89.314 Pressure ulcer of right buttock, stage 4; L89.153 Pressure ulcer of sacral region, stage 3; E11.621 Type 2 diabetes mellitus with foot ulcer; C21.1 Malignant neoplasm of anal canal; E11.40 Type 2 diabetes mellitus with diabetic neuropathy, unspecified; L89.323 Pressure ulcer of left buttock, stage 3; J44.9 Chronic obstructive pulmonary disease, unspecified; I10 Essential (primary) hypertension; E11.51 Type 2 diabetes mellitus with diabetic peripheral angiopathy without gangrene; Z89.511 Acquired absence of right leg below knee; L97.929 Non-pressure chronic ulcer of unspecified part of left lower leg with unspecified severity; Z79.899 Other long term (current) drug therapy; Z79.4 Long term (current) use of insulin ==

== ENCOUNTER 2019-10-07 | Day surgery (SDC) | payer MEDICARE, OTHER | END 2019-10-13 22:52 | disposition home or self-care (01) | LOC: WOUND | DX: L89.313 Pressure ulcer of right buttock, stage 3 (principal); L89.314 Pressure ulcer of right buttock, stage 4; L89.153 Pressure ulcer of sacral region, stage 3; E11.621 Type 2 diabetes mellitus with foot ulcer; C21.1 Malignant neoplasm of anal canal; E11.40 Type 2 diabetes mellitus with diabetic neuropathy, unspecified; L89.323 Pressure ulcer of left buttock, stage 3; J44.9 Chronic obstructive pulmonary disease, unspecified; I10 Essential (primary) hypertension; L97.529 Non-pressure chronic ulcer of other part of left foot with unspecified severity; Z89.511 Acquired absence of right leg below knee; Z79.899 Other long term (current) drug therapy; Z79.4 Long term (current) use of insulin ==

== ENCOUNTER 2019-10-07 00:19 | Day surgery (SDC) | payer MEDICARE, OTHER | END 2019-10-07 22:45 | disposition home or self-care (01) | LOC: WOUND 00:19 | DX: M86.18 Other acute osteomyelitis, other site (principal); Z88.6 Allergy status to analgesic agent; Z88.0 Allergy status to penicillin | CPT/HCPCS: 87071; 87075; 87076; 87077; 87147; 87185; 87186; 87205; 88305; 88311 ==

== ENCOUNTER 2019-10-14 00:36 | Day surgery (SDC) | payer MEDICARE, OTHER | END 2019-10-14 23:16 | disposition home or self-care (01) | LOC: WOUND 00:36 | DX: L89.314 Pressure ulcer of right buttock, stage 4 (principal); L89.323 Pressure ulcer of left buttock, stage 3; L89.153 Pressure ulcer of sacral region, stage 3; C21.1 Malignant neoplasm of anal canal; E11.40 Type 2 diabetes mellitus with diabetic neuropathy, unspecified; E11.621 Type 2 diabetes mellitus with foot ulcer; Z79.4 Long term (current) use of insulin; Z79.899 Other long term (current) drug therapy; Z89.511 Acquired absence of right leg below knee ==

== ENCOUNTER 2019-10-30 01:15 | Day surgery (SDC) | payer MEDICARE, OTHER | END 2019-10-30 23:04 | disposition home or self-care (01) | LOC: WOUND 01:15 | DX: L89.313 Pressure ulcer of right buttock, stage 3 (principal); L89.314 Pressure ulcer of right buttock, stage 4; L89.153 Pressure ulcer of sacral region, stage 3; E11.621 Type 2 diabetes mellitus with foot ulcer; C21.1 Malignant neoplasm of anal canal; L89.323 Pressure ulcer of left buttock, stage 3; E11.40 Type 2 diabetes mellitus with diabetic neuropathy, unspecified; L97.909 Non-pressure chronic ulcer of unspecified part of unspecified lower leg with unspecified severity; I10 Essential (primary) hypertension; J44.9 Chronic obstructive pulmonary disease, unspecified; Z89.511 Acquired absence of right leg below knee; Z86.73 Personal history of transient ischemic attack (TIA), and cerebral infarction without residual deficits; Z79.899 Other long term (current) drug therapy; Z79.4 Long term (current) use of insulin ==

== ENCOUNTER → 2019-11-27 | Outpatient (CLI) | payer MEDICARE, OTHER ==
[~2019-11-27] MED LIST changes: +Acetaminophen500 MG PO; +BASAGLAR K100 UNIT/2 SC; +EVAC340 GM PO; +FERSU300 PO; +GLIP5 PO; +LIDOCAINE PAIN1 EACH TOP; +MELA3 PO; +NEURONTIN600 MG PO; +NIFE30ER PO; +ROSU10TA PO; +TIOT18 INH; +Zinc Sulfate220 M1 PO
[2019-11-27 20:06] LABS: Appearance, Urine Turbid (Clear); Bilirubin, Urine Neg (Neg); Blood, Urine 5+ (Neg); Color, Urine Yellow (P-Yellow); Glucose Qualitative, Urine Neg (Neg); Ketones, Urine 1+ (Neg); Leukocyte Esterase, Urine 3+ (Neg); Nitrite, Urine Neg (Neg); Protein, Urine 3+ (Neg); Specific Gravity, Urine 1.025 (1.003-1.022); Urobilinogen, Urine NORM (Normal)
[2019-11-27 20:17] LABS: White Blood Cells, Urine TNTC /hpf (0-5)
[2019-11-27 20:19] LABS: Bacteria Many /hpf; Red Blood Cells, Urine Not Seen /hpf (0-2); Squamous Epithelial Cells Not Seen /hpf (Few); Transitional Epithelial Cells Few /hpf (0-Rare)
== END | disposition home or self-care (01) ==
LOC: LAB SHORT 17:57 → LAB 17:57 → LAB FUT 11-16 16:25 → EDSTATUS 11-16 16:25
PROVIDERS: Nurse Practitioner
DX: R30.9 Painful micturition, unspecified (principal)
CPT/HCPCS: 81001; 87077; 87086; 87186

== ENCOUNTER 2019-12-02 00:10 | Day surgery (SDC) | payer MEDICARE, OTHER | END 2019-12-02 22:45 | disposition home or self-care (01) | LOC: WOUND 00:10 | DX: L89.313 Pressure ulcer of right buttock, stage 3 (principal); L89.314 Pressure ulcer of right buttock, stage 4; L89.153 Pressure ulcer of sacral region, stage 3; E11.621 Type 2 diabetes mellitus with foot ulcer; Z89.511 Acquired absence of right leg below knee; C21.1 Malignant neoplasm of anal canal; E11.40 Type 2 diabetes mellitus with diabetic neuropathy, unspecified; L89.323 Pressure ulcer of left buttock, stage 3; L97.509 Non-pressure chronic ulcer of other part of unspecified foot with unspecified severity; Z79.899 Other long term (current) drug therapy; Z79.4 Long term (current) use of insulin | CPT/HCPCS: G0463 ==

== ENCOUNTER 2019-12-09 00:19 | Day surgery (SDC) | payer MEDICARE, OTHER | END 2019-12-09 22:49 | disposition home or self-care (01) | LOC: WOUND 00:19 | DX: T14.8XXA Other injury of unspecified body region, initial encounter (principal); Z53.9 Procedure and treatment not carried out, unspecified reason | CPT/HCPCS: G0463 ==

== ENCOUNTER 2019-12-18 00:24 | Day surgery (SDC) | payer MEDICARE, OTHER | END 2019-12-18 23:11 | disposition home or self-care (01) | LOC: WOUND 00:24 | DX: L89.313 Pressure ulcer of right buttock, stage 3 (principal); L89.314 Pressure ulcer of right buttock, stage 4; L89.153 Pressure ulcer of sacral region, stage 3; E11.621 Type 2 diabetes mellitus with foot ulcer; C21.1 Malignant neoplasm of anal canal; E11.40 Type 2 diabetes mellitus with diabetic neuropathy, unspecified; L89.323 Pressure ulcer of left buttock, stage 3; I10 Essential (primary) hypertension; J44.9 Chronic obstructive pulmonary disease, unspecified; E11.51 Type 2 diabetes mellitus with diabetic peripheral angiopathy without gangrene; L97.909 Non-pressure chronic ulcer of unspecified part of unspecified lower leg with unspecified severity; Z89.511 Acquired absence of right leg below knee; Z79.02 Long term (current) use of antithrombotics/antiplatelets; Z79.899 Other long term (current) drug therapy; Z79.4 Long term (current) use of insulin | CPT/HCPCS: 87071; 87075; 87077; 87147; 87186; 87205; 88305; 88311 ==

== ENCOUNTER 2019-12-18 11:19 | Emergency (ER) | payer MEDICARE, OTHER ==
[~2019-12-18] VITALS: Ht 162.6 cm; Wt 63.5 kg
[2019-12-18 12:46] LABS: BASOPHILS ABSOLUTE AUTO 0.05 K/mm3 (0.00-0.23); BASOPHILS PERCENT AUTO 1 % (0-2); EOSINOPHILS ABSOLUTE AUTO 0.34 K/mm3 (0.00-0.68); EOSINOPHILS PERCENT AUTO 5 % (0-6); Hematocrit 31.2 % (33.0-51.0); Hemoglobin 9.6 g/dL (11.5-16.0); IMMATURE GRAN ABSOLUTE AUTO 0.08 K/mm3 (0.00-0.10); IMMATURE GRAN PERCENT AUTO 1 % (0-1); LYMPHOCYTES ABSOLUTE AUTO 1.33 K/mm3 (0.84-5.20); LYMPHOCYTES PERCENT AUTO 19 % (21-46); MONOCYTES ABSOLUTE AUTO 0.58 K/mm3 (0.16-1.47); MONOCYTES PERCENT AUTO 8 % (4-13); Mean Corpuscular HGB Conc 30.8 g/dL (31.5-36.5); Mean Corpuscular Volume 88 fL (80-100); NEUTROPHILS PERCENT AUTO 66 % (41-73); Platelet Count 273 K/mm3 (150-400); RDW Coefficient Variation 15.5 % (11.7-14.2); RDW Standard Deviation 49.3 fL (35.1-46.3); Red Blood Cell Count 3.55 M/mm3 (3.80-5.20); White Blood Cell Count 6.98 K/mm3 (4.00-11.30)
[2019-12-18 13:02] LABS: Alanine Aminotransfer (ALT/SGP 13 U/L (12-78); Albumin/Globulin Ratio 0.4 (0.8-1.8); Alk Phos 90 U/L (50-136); Anion Gap 3 mmol/L (6-16); Aspartate Aminotrans (AST/SGOT 22 U/L (12-37); Bilirubin, Total 0.2 mg/dL (0.1-1.0); Blood Urea Nitrogen 17 mg/dL (8-24); CO2, Blood 27 mmol/L (21-32); Calcium, Blood 8.1 mg/dL (8.5-10.1); Chloride, Blood 108 mmol/L (98-108); Creatinine, Blood 0.81 mg/dL (0.40-1.00); Globulin, Blood 5.3 g/dL (2.2-4.0); Glomerular Filtration Rate >60 (60-); Glucose, Blood 56 mg/dL (70-99); Potassium, Blood 5.2 mmol/L (3.5-5.5); Sodium, Blood 138 mmol/L (136-145); Total Protein, Blood 7.3 g/dL (6.4-8.2)
== END 2019-12-18 16:15 | disposition home or self-care (01) ==
LOC: ER 11:19
PROVIDERS: Physician Assistant
DX: L89.159 Pressure ulcer of sacral region, unspecified stage (principal); E11.9 Type 2 diabetes mellitus without complications; D64.9 Anemia, unspecified; Z87.891 Personal history of nicotine dependence; Z88.0 Allergy status to penicillin; Z88.6 Allergy status to analgesic agent; Z79.4 Long term (current) use of insulin; Z79.899 Other long term (current) drug therapy; Z79.82 Long term (current) use of aspirin
CPT/HCPCS: 36415; 74177; 80053; 85025; 99284-25; Q9967

== ENCOUNTER 2019-12-30 00:24 | Day surgery (SDC) | payer MEDICARE, OTHER | END 2019-12-30 23:03 | disposition home or self-care (01) | LOC: WOUND 00:24 | DX: L89.313 Pressure ulcer of right buttock, stage 3 (principal); L89.314 Pressure ulcer of right buttock, stage 4; L89.153 Pressure ulcer of sacral region, stage 3; C21.1 Malignant neoplasm of anal canal; E11.40 Type 2 diabetes mellitus with diabetic neuropathy, unspecified; L89.323 Pressure ulcer of left buttock, stage 3; E11.51 Type 2 diabetes mellitus with diabetic peripheral angiopathy without gangrene; J44.9 Chronic obstructive pulmonary disease, unspecified; E11.621 Type 2 diabetes mellitus with foot ulcer; L97.509 Non-pressure chronic ulcer of other part of unspecified foot with unspecified severity; Z89.511 Acquired absence of right leg below knee; Z79.4 Long term (current) use of insulin; Z79.899 Other long term (current) drug therapy ==

== ENCOUNTER 2020-01-06 00:38 | Day surgery (SDC) | payer MEDICARE, OTHER | END 2020-01-06 23:16 | disposition home or self-care (01) | LOC: WOUND 00:38 | DX: L89.313 Pressure ulcer of right buttock, stage 3 (principal); L89.314 Pressure ulcer of right buttock, stage 4; L89.153 Pressure ulcer of sacral region, stage 3; L89.323 Pressure ulcer of left buttock, stage 3; E11.621 Type 2 diabetes mellitus with foot ulcer; C21.1 Malignant neoplasm of anal canal; E11.40 Type 2 diabetes mellitus with diabetic neuropathy, unspecified; Z89.511 Acquired absence of right leg below knee ==

== ENCOUNTER 2020-01-12 08:57 | Day surgery (SDC) | payer MEDICARE, OTHER ==
[2020-01-12 11:35] LABS: Performing Lab VERACYTE; Test Name FNA
== END 2020-01-12 22:39 | disposition home or self-care (01) ==
LOC: US 08:57
PROVIDERS: Nurse Practitioner
DX: E04.1 Nontoxic single thyroid nodule (principal)
CPT/HCPCS: 10005

== ENCOUNTER 2020-01-13 00:14 | Day surgery (SDC) | payer MEDICARE, OTHER | END 2020-01-13 23:04 | disposition home or self-care (01) | LOC: WOUND 00:14 | DX: L89.314 Pressure ulcer of right buttock, stage 4 (principal); L89.313 Pressure ulcer of right buttock, stage 3; L89.153 Pressure ulcer of sacral region, stage 3; E11.621 Type 2 diabetes mellitus with foot ulcer; C21.1 Malignant neoplasm of anal canal; E11.40 Type 2 diabetes mellitus with diabetic neuropathy, unspecified; L89.323 Pressure ulcer of left buttock, stage 3; Z89.511 Acquired absence of right leg below knee; J44.9 Chronic obstructive pulmonary disease, unspecified; I25.10 Atherosclerotic heart disease of native coronary artery without angina pectoris; I10 Essential (primary) hypertension ==

== ENCOUNTER → 2020-01-15 | Outpatient (CLI) | payer MEDICARE, OTHER | END | disposition home or self-care (01) | LOC: LAB HH 15:50 | DX: E11.51 Type 2 diabetes mellitus with diabetic peripheral angiopathy without gangrene (principal); L89.214 Pressure ulcer of right hip, stage 4; L89.154 Pressure ulcer of sacral region, stage 4; L89.313 Pressure ulcer of right buttock, stage 3 | CPT/HCPCS: 82040 ==

== ENCOUNTER 2020-01-20 00:24 | Day surgery (SDC) | payer MEDICARE, OTHER | END 2020-01-20 22:51 | disposition home or self-care (01) | LOC: WOUND 00:24 | DX: L89.313 Pressure ulcer of right buttock, stage 3 (principal); L89.314 Pressure ulcer of right buttock, stage 4; L89.153 Pressure ulcer of sacral region, stage 3; E11.621 Type 2 diabetes mellitus with foot ulcer; C21.1 Malignant neoplasm of anal canal; E11.40 Type 2 diabetes mellitus with diabetic neuropathy, unspecified; L89.323 Pressure ulcer of left buttock, stage 3; J44.9 Chronic obstructive pulmonary disease, unspecified; Z89.511 Acquired absence of right leg below knee; Z89.611 Acquired absence of right leg above knee ==

== ENCOUNTER → 2020-03-03 | Outpatient (CLI) | payer MEDICARE, OTHER ==
[~2020-03-03] MED LIST changes: +MONDOXYNE NL100 MG PO
[2020-03-03 20:48] LABS: Alanine Aminotransfer (ALT/SGP 15 U/L (12-78); Albumin, Blood 2.1 g/dL (3.4-5.0); Albumin/Globulin Ratio 0.5 (0.8-1.8); Alk Phos 87 U/L (50-136); Anion Gap 4 mmol/L (6-16); Aspartate Aminotrans (AST/SGOT 16 U/L (12-37); Bilirubin, Total 0.2 mg/dL (0.1-1.0); Blood Urea Nitrogen 42 mg/dL (8-24); Bun/Creatinine Ratio 44.1 (12.0-20.0); CO2, Blood 24 mmol/L (21-32); Calcium, Blood 8.6 mg/dL (8.5-10.1); Chloride, Blood 113 mmol/L (98-108); Creatinine, Blood 0.95 mg/dL (0.40-1.00); Globulin, Blood 4.5 g/dL (2.2-4.0); Glomerular Filtration Rate >60 (60-); Glucose, Blood 111 mg/dL (70-99); Lactate Dehydrogenase (Ld),Bld 159 U/L (100-240); Potassium, Blood 5.8 mmol/L (3.5-5.5); Sodium, Blood 141 mmol/L (136-145); Total Protein, Blood 6.6 g/dL (6.4-8.2)
[2020-03-03 20:49] LABS: Percent Saturation 41.9 % (15.0-50.0)
[2020-03-04 14:09] LABS: Free Thyroxine 1.02 ng/dL (0.70-1.60)
[2020-03-04 14:11] LABS: Thyroid Stimulating Hormone 0.241 uIU/mL (0.360-4.800)
== END | disposition home or self-care (01) ==
LOC: LAB 18:07 → LAB SHORT 18:07
PROVIDERS: Internal Medicine Hematology & Oncology
DX: L98.419 Non-pressure chronic ulcer of buttock with unspecified severity (principal); I70.219 Atherosclerosis of native arteries of extremities with intermittent claudication, unspecified extremity; I25.10 Atherosclerotic heart disease of native coronary artery without angina pectoris; R77.0 Abnormality of albumin
CPT/HCPCS: 80053; 83540; 83550; 83615; 84439; 84443

== ENCOUNTER 2020-03-15 10:30 | Day surgery (SDC) | payer MEDICARE, OTHER ==
[~2020-03-15] VITALS: Ht 162.6 cm; Wt 59.5 kg
[~2020-03-15 10:30] MED LIST changes: -MONDOXYNE NL100 MG PO
[2020-03-15] MEDS ORDERED: MONDOXYNE NL100 MG PO (11:41)
[2020-03-15 12:05] LABS: Anion Gap 2 mmol/L (6-16); Blood Urea Nitrogen 35 mg/dL (8-24); Bun/Creatinine Ratio 42.7 (12.0-20.0); CO2, Blood 25 mmol/L (21-32); Calcium, Blood 8.6 mg/dL (8.5-10.1); Chloride, Blood 109 mmol/L (98-108); Creatinine, Blood 0.82 mg/dL (0.40-1.00); Glomerular Filtration Rate >60 (60-); Glucose, Blood 121 mg/dL (70-99); Potassium, Blood 4.6 mmol/L (3.5-5.5); Sodium, Blood 136 mmol/L (136-145)
--- NOTE | 2020-03-15 17:38 | NUR ---
PT CAME TO U 15 FROM SYSTEM ARCHIVE ANALYST AT 1715. PT IS A/O X4. DENIES PAIN, NV, AND SOB. ON RA. HAS L RADIAL ACCESS SITE WITH TR BAND INFLATED. REPORT FROM SYSTEM ARCHIVE ANALYST RN THERE IS 11CC OF AIR IN BAND. L HAND IS DUSKY, PT STATES IT FEELS A LITTLE NUMB, FAINT RADIAL PULSE, AND SPO2 UNABLE TO READ. REMOVED 1CC OF AIR FROM TR BAND WITH GOOD RELIEF TO THE PT. SPO2 IMPROVED TO 97%. PT STATES HER HANDS ARE ALWAYS COLD. ABLE TO MOVE FINGERS WELL. PT HAS A R FEMORAL ACCESS SITE THAT WAS REPORTED TO NOT BE AN ARTERIAL STICK. THERE IS A MEDINA OVER SITE WITH CLEAR OCCLUSIVE DRESSING. ALSO HAS L PT ACCESS SITE WITH MEDINA AND CLEAR OCCLUSIVE DRESSING WELL. BOTH THE R FEMORAL AND L PT ACCESS SITES ARE STABLE, NO SIGNS OF BLEEDING. VSS STABLE. NO SIGN OF DISTRESS.
--- NOTE | 2020-03-15 18:44 | NUR ---
PATIENT ARRIVED FROM [facility] FOR EXTENDED RECOVERY. NO NEW DISCHARGE NOTED AT ACCESS SITES, PEDAL PULSE ON LLE FOUND WITH DOPPLER. TR BAND IN PLACE, VSS. WCTM.
--- NOTE | 2020-03-15 21:20 | NUR ---
CARE ASSUMPTION / CONTINUED STAY PT A&O X4. VSS. L RADIAL ACCESS SITE RECOVERY WNL W/ NO BLEEDING, NO HEMATOMA. TR BAND REMOVED, TRANSPARENT DRESSING APPLIED, ARM BOARD IN PLACE. PT EXTENDED RECOVERY STATUS W/ DISCHARGE ORDERS HOME POST TR BAND RECOVERY. PT REPORTING THE HOUR IS TOO LATE FOR HER TO DISCHARGE HOME. MD WATKINS NOTIFIED OF PT CONCERN W/ OKAY FOR PT TO REMAIN IN EXTENDED RECOVERY STATUS & DISCHARGE HOME IN MORNING.
--- NOTE | 2020-03-16 05:24 | NUR ---
END OF SHIFT SUMMARY PT A&O X4. VSS. PT EXTENDED RECOVERY STATUS. TR BAND REMOVED FROM L. RADIAL THIS EVENING. SITE WNL. NO BLEEDING. NO HEMATOMA. SITE COVERED W/ WINDOW DRESSING. PT C/O OF PAIN ON BUTTOCKS. MEDICATED PER EMAR. HAS TUNNELING PRESSURE ULCER ON BUTTOCKS. CLEANED, PACKED, AND DRESSED THE PRESSURE ULCER. PT INCONTINENT OF URINE. PRN MIKAL CARE AND ATTENDS CHANGES PROVIDED. DOPPLER USED TO LOCATE PEDAL PULSE ON L FOOT. RIGHT AKA. SP02 >92% ON RA. PT ON TELEMETRY, SR HR 80'S. PT ANTICIPATING DICHARGE THIS AM. CALL LIGHT WITHIN REACH. WILL CONTINUE TO MONITOR UNTIL END OF SHIFT.
--- NOTE | 2020-03-16 07:13 | NUR ---
ASSUMED PATIENT CARE. PATIENT SLEEPING COMFORTABLY IN BED, NO SIGNS OF ACUTE DISTRESS, WCTM.
== END 2020-03-16 13:04 | disposition home or self-care (01) ==
LOC: MHTC 10:30 → PCU 16:51 → MHTC 03-16 13:04
PROVIDERS: Radiology Diagnostic Radiology
DX: I70.213 Atherosclerosis of native arteries of extremities with intermittent claudication, bilateral legs (principal); L89.309 Pressure ulcer of unspecified buttock, unspecified stage; Z88.0 Allergy status to penicillin; Z88.6 Allergy status to analgesic agent
CPT/HCPCS: 37220; 37222; 37227; 75625; 75716; 75774; 76937; 80048; 82947; 85347; 94640; 94760; 99152; 99153; A9270-GY; C1725; C1769; C1885; C1887; C1894; C2623; J1644; J2250; J3010; J7030; J7040; Q9967

== ENCOUNTER → 2020-03-25 | Outpatient (CLI) | payer MEDICARE, OTHER ==
[~2020-03-25] MED LIST changes: +MONDOXYNE NL100 MG PO
[2020-03-25 16:34] LABS: Calcium, Blood 8.2 mg/dL (8.5-10.1); Creatinine, Blood 1.03 mg/dL (0.40-1.00); Potassium, Blood 5.4 mmol/L (3.5-5.5); Total Protein, Blood 5.9 g/dL (6.4-8.2)
[2020-03-25 16:35] LABS: Albumin/Globulin Ratio 0.5 (0.8-1.8); Bilirubin, Total 0.1 mg/dL (0.1-1.0); Globulin, Blood 3.9 g/dL (2.2-4.0)
[2020-03-25 17:03] LABS: Percent Saturation 19.8 % (15.0-50.0)
== END | disposition home or self-care (01) ==
LOC: LAB 13:08 → LAB SHORT 13:08
PROVIDERS: Internal Medicine Hematology & Oncology
DX: C21.0 Malignant neoplasm of anus, unspecified (principal); D63.8 Anemia in other chronic diseases classified elsewhere
CPT/HCPCS: 80053; 82728; 83540; 83550; 83615

== ENCOUNTER 2020-03-30 00:41 | Day surgery (SDC) | payer MEDICARE, OTHER | END 2020-03-30 22:50 | disposition home or self-care (01) | LOC: WOUND 00:41 | DX: L89.313 Pressure ulcer of right buttock, stage 3 (principal); L89.314 Pressure ulcer of right buttock, stage 4; L89.153 Pressure ulcer of sacral region, stage 3; E11.621 Type 2 diabetes mellitus with foot ulcer; C21.1 Malignant neoplasm of anal canal; E11.40 Type 2 diabetes mellitus with diabetic neuropathy, unspecified; L89.323 Pressure ulcer of left buttock, stage 3; Z89.511 Acquired absence of right leg below knee; L97.509 Non-pressure chronic ulcer of other part of unspecified foot with unspecified severity; Z79.899 Other long term (current) drug therapy; Z79.4 Long term (current) use of insulin ==

== ENCOUNTER → 2020-04-07 | Outpatient (CLI) | payer MEDICARE, OTHER ==
[2020-04-07 17:05] LABS: Source, Urine Clean Catch
[2020-04-07 18:44] LABS: Appearance, Urine Turbid (Clear); Bilirubin, Urine Neg (Neg); Blood, Urine 5+ (Neg); Color, Urine Yellow (P-Yellow); Glucose Qualitative, Urine Neg (Neg); Ketones, Urine 1+ (Neg); Leukocyte Esterase, Urine 3+ (Neg); Nitrite, Urine Pos (Neg); Protein, Urine 3+ (Neg); Specific Gravity, Urine 1.015 (1.003-1.022); Urobilinogen, Urine NORM (Normal)
[2020-04-07 19:17] LABS: Bacteria Many /hpf; White Blood Cells, Urine TNTC /hpf (0-5)
[2020-04-07 19:18] LABS: Squamous Epithelial Cells Rare /hpf (Few)
== END | disposition home or self-care (01) ==
LOC: EDSTATUS 13:43 → LAB HH 16:58
PROVIDERS: Nurse Practitioner
DX: N39.0 Urinary tract infection, site not specified (principal)
CPT/HCPCS: 81001; 87077; 87086; 87186

== ENCOUNTER 2020-05-13 02:01 | Day surgery (SDC) | payer MEDICARE, OTHER ==
[~2020-05-13 02:01] MED LIST changes: +METO100ER PO
[2020-05-14] MEDS ORDERED: CEFP200 PO (14:27)
[2020-05-14] MEDS ORDERED: CYCL10 PO (14:29)
[2020-05-14] MEDS ORDERED: TRAZ100 PO (14:30)
== END 2020-05-13 22:47 | disposition home or self-care (01) ==
LOC: WOUND 02:01
DX: L89.313 Pressure ulcer of right buttock, stage 3 (principal); L89.153 Pressure ulcer of sacral region, stage 3; L89.314 Pressure ulcer of right buttock, stage 4; E11.621 Type 2 diabetes mellitus with foot ulcer; C21.1 Malignant neoplasm of anal canal; E11.40 Type 2 diabetes mellitus with diabetic neuropathy, unspecified; I10 Essential (primary) hypertension; Z89.511 Acquired absence of right leg below knee; J44.9 Chronic obstructive pulmonary disease, unspecified; Z79.82 Long term (current) use of aspirin; Z79.899 Other long term (current) drug therapy; Z79.84 Long term (current) use of oral hypoglycemic drugs; L97.509 Non-pressure chronic ulcer of other part of unspecified foot with unspecified severity
CPT/HCPCS: G0463

== ENCOUNTER 2020-05-14 11:33 | Inpatient (IN) | payer MEDICARE, OTHER ==
[~2020-05-14] VITALS: Ht 162.6 cm; Wt 74.3 kg
[2020-05-14 13:40] LABS: Albumin, Blood 1.6 g/dL (3.4-5.0); Albumin/Globulin Ratio 0.4 (0.8-1.8); Bilirubin, Total 0.2 mg/dL (0.1-1.0); Bun/Creatinine Ratio 37.9 (12.0-20.0); Calcium, Blood 7.8 mg/dL (8.5-10.1); Creatinine, Blood 1.69 mg/dL (0.40-1.00); Globulin, Blood 4.3 g/dL (2.2-4.0); Potassium, Blood 5.5 mmol/L (3.5-5.5); Total Protein, Blood 5.9 g/dL (6.4-8.2); Troponin I 0.164 ng/mL (0.000-0.040)
[2020-05-14 13:48] LABS: BASOPHILS ABSOLUTE AUTO 0.03 K/mm3 (0.00-0.23); BASOPHILS PERCENT AUTO 0 % (0-2); EOSINOPHILS ABSOLUTE AUTO 0.23 K/mm3 (0.00-0.68); EOSINOPHILS PERCENT AUTO 2 % (0-6); Hematocrit 24.5 % (33.0-51.0); Hemoglobin 7.8 g/dL (11.5-16.0); IMMATURE GRAN ABSOLUTE AUTO 0.06 K/mm3 (0.00-0.10); IMMATURE GRAN PERCENT AUTO 1 % (0-1); LYMPHOCYTES ABSOLUTE AUTO 1.16 K/mm3 (0.84-5.20); LYMPHOCYTES PERCENT AUTO 10 % (21-46); MONOCYTES ABSOLUTE AUTO 0.73 K/mm3 (0.16-1.47); MONOCYTES PERCENT AUTO 6 % (4-13); Mean Corpuscular HGB 28.2 pg (26.0-34.0); Mean Corpuscular HGB Conc 31.8 g/dL (31.5-36.5); Mean Corpuscular Volume 88 fL (80-100); Mean Platelet Volume 10.5 fL (9.1-12.4); NEUTROPHILS ABSOLUTE AUTO 9.35 K/mm3 (1.96-9.15); NEUTROPHILS PERCENT AUTO 81 % (41-73); Platelet Count 211 K/mm3 (150-400); RDW Coefficient Variation 12.9 % (11.7-14.2); RDW Standard Deviation 41.6 fL (35.1-46.3); Red Blood Cell Count 2.77 M/mm3 (3.80-5.20); White Blood Cell Count 11.56 K/mm3 (4.00-11.30)
[2020-05-14] MEDS ORDERED: CEFP200 PO (14:27)
[2020-05-14] MEDS ORDERED: CYCL10 PO (14:29)
[2020-05-14] MEDS ORDERED: TRAZ100 PO (14:30)
[2020-05-14 16:06] LABS: Base Excess Venous -8.2 mmol/L; Bicarbonate Venous 17.9 mmol/L (24.0-30.0); PCO2 Venous 41.6 mmHg (38-42); PO2 Venous 40.7 mmHg (38-42)
[2020-05-14 16:07] LABS: pH Blood Venous 7.26 (7.34-7.37)
[2020-05-14 16:33] LABS: International Normalized Ratio 1.02; Prothrombin Time Results 10.9 Sec (9.7-11.5)
[2020-05-14 17:09] LABS: Source, Urine Catheter
[2020-05-14 17:13] LABS: Appearance, Urine Hazy (Clear); Bilirubin, Urine Neg (Neg); Blood, Urine 5+ (Neg); Color, Urine Yellow (P-Yellow); Glucose Qualitative, Urine Neg (Neg); Ketones, Urine Neg (Neg); Leukocyte Esterase, Urine 3+ (Neg); Nitrite, Urine Neg (Neg); Protein, Urine 1+ (Neg); Specific Gravity, Urine 1.015 (1.003-1.022); Urobilinogen, Urine NORM (Normal)
[2020-05-14 17:22] LABS: Amorphous Light (0-Heavy); Bacteria Mod /hpf; Squamous Epithelial Cells Rare /hpf (Few); Transitional Epithelial Cells Rare /hpf (0-Rare); White Blood Cells, Urine 0-2 /hpf (0-5)
[2020-05-14 21:54] LABS: Bun/Creatinine Ratio 38.3 (12.0-20.0); Calcium, Blood 7.8 mg/dL (8.5-10.1); Creatinine, Blood 1.67 mg/dL (0.40-1.00); Potassium, Blood 4.9 mmol/L (3.5-5.5)
[2020-05-15 00:55] LABS: BASOPHILS ABSOLUTE AUTO 0.05 K/mm3 (0.00-0.23); BASOPHILS PERCENT AUTO 1 % (0-2); EOSINOPHILS ABSOLUTE AUTO 0.29 K/mm3 (0.00-0.68); EOSINOPHILS PERCENT AUTO 3 % (0-6); Hematocrit 24.6 % (33.0-51.0); Hemoglobin 7.9 g/dL (11.5-16.0); IMMATURE GRAN ABSOLUTE AUTO 0.04 K/mm3 (0.00-0.10); IMMATURE GRAN PERCENT AUTO 0 % (0-1); LYMPHOCYTES ABSOLUTE AUTO 0.87 K/mm3 (0.84-5.20); LYMPHOCYTES PERCENT AUTO 8 % (21-46); MONOCYTES ABSOLUTE AUTO 0.58 K/mm3 (0.16-1.47); MONOCYTES PERCENT AUTO 6 % (4-13); Mean Corpuscular HGB Conc 32.1 g/dL (31.5-36.5); Mean Corpuscular Volume 87 fL (80-100); Mean Platelet Volume 9.9 fL (9.1-12.4); NEUTROPHILS ABSOLUTE AUTO 8.48 K/mm3 (1.96-9.15); NEUTROPHILS PERCENT AUTO 82 % (41-73); Platelet Count 176 K/mm3 (150-400); RDW Standard Deviation 41.2 fL (35.1-46.3); Red Blood Cell Count 2.82 M/mm3 (3.80-5.20); White Blood Cell Count 10.31 K/mm3 (4.00-11.30)
[2020-05-15 01:17] LABS: Albumin, Blood 1.8 g/dL (3.4-5.0); Albumin/Globulin Ratio 0.4 (0.8-1.8); Bilirubin, Total 0.2 mg/dL (0.1-1.0); Bun/Creatinine Ratio 43.5 (12.0-20.0); Calcium, Blood 8.1 mg/dL (8.5-10.1); Creatinine, Blood 1.38 mg/dL (0.40-1.00); Globulin, Blood 4.3 g/dL (2.2-4.0); Potassium, Blood 4.4 mmol/L (3.5-5.5); Total Protein, Blood 6.1 g/dL (6.4-8.2); Troponin I 0.093 ng/mL (0.000-0.040)
[2020-05-16 04:50] LABS: BASOPHILS ABSOLUTE AUTO 0.02 K/mm3 (0.00-0.23); BASOPHILS PERCENT AUTO 0 % (0-2); EOSINOPHILS ABSOLUTE AUTO 0.18 K/mm3 (0.00-0.68); EOSINOPHILS PERCENT AUTO 2 % (0-6); Hematocrit 23.3 % (33.0-51.0); IMMATURE GRAN ABSOLUTE AUTO 0.05 K/mm3 (0.00-0.10); IMMATURE GRAN PERCENT AUTO 1 % (0-1); LYMPHOCYTES ABSOLUTE AUTO 0.98 K/mm3 (0.84-5.20); LYMPHOCYTES PERCENT AUTO 10 % (21-46); MONOCYTES ABSOLUTE AUTO 0.84 K/mm3 (0.16-1.47); MONOCYTES PERCENT AUTO 9 % (4-13); Mean Corpuscular HGB 27.8 pg (26.0-34.0); Mean Platelet Volume 9.9 fL (9.1-12.4); NEUTROPHILS ABSOLUTE AUTO 7.86 K/mm3 (1.96-9.15); NEUTROPHILS PERCENT AUTO 79 % (41-73); Platelet Count 195 K/mm3 (150-400); RDW Coefficient Variation 13.5 % (11.7-14.2); RDW Standard Deviation 45.8 fL (35.1-46.3); Red Blood Cell Count 2.52 M/mm3 (3.80-5.20); White Blood Cell Count 9.93 K/mm3 (4.00-11.30)
[2020-05-16 04:51] LABS: Mean Corpuscular Volume 93 fL (80-100)
[2020-05-16 05:11] LABS: Alanine Aminotransfer (ALT/SGP 9 U/L (12-78); Albumin, Blood 1.5 g/dL (3.4-5.0); Albumin/Globulin Ratio 0.3 (0.8-1.8); Alk Phos 155 U/L (50-136); Anion Gap 8 mmol/L (6-16); Aspartate Aminotrans (AST/SGOT 11 U/L (12-37); Bilirubin, Total 0.1 mg/dL (0.1-1.0); Blood Urea Nitrogen 48 mg/dL (8-24); CO2, Blood 16 mmol/L (21-32); Calcium, Blood 7.9 mg/dL (8.5-10.1); Chloride, Blood 110 mmol/L (98-108); Creatinine, Blood 0.84 mg/dL (0.40-1.00); Globulin, Blood 4.3 g/dL (2.2-4.0); Glomerular Filtration Rate >60 (60-); Glucose, Blood 55 mg/dL (70-99); Potassium, Blood 4.5 mmol/L (3.5-5.5); Sodium, Blood 134 mmol/L (136-145); Total Protein, Blood 5.8 g/dL (6.4-8.2)
[2020-05-17 09:19] LABS: BASOPHILS ABSOLUTE AUTO 0.03 K/mm3 (0.00-0.23); BASOPHILS PERCENT AUTO 0 % (0-2); EOSINOPHILS ABSOLUTE AUTO 0.19 K/mm3 (0.00-0.68); EOSINOPHILS PERCENT AUTO 3 % (0-6); Hematocrit 20.1 % (33.0-51.0); Hemoglobin 6.1 g/dL (11.5-16.0); IMMATURE GRAN ABSOLUTE AUTO 0.04 K/mm3 (0.00-0.10); IMMATURE GRAN PERCENT AUTO 1 % (0-1); LYMPHOCYTES ABSOLUTE AUTO 0.67 K/mm3 (0.84-5.20); LYMPHOCYTES PERCENT AUTO 10 % (21-46); MONOCYTES ABSOLUTE AUTO 0.53 K/mm3 (0.16-1.47); MONOCYTES PERCENT AUTO 8 % (4-13); Mean Corpuscular HGB 27.1 pg (26.0-34.0); Mean Corpuscular HGB Conc 30.3 g/dL (31.5-36.5); Mean Corpuscular Volume 89 fL (80-100); Mean Platelet Volume 10.1 fL (9.1-12.4); NEUTROPHILS ABSOLUTE AUTO 5.57 K/mm3 (1.96-9.15); NEUTROPHILS PERCENT AUTO 79 % (41-73); Platelet Count 206 K/mm3 (150-400); RDW Coefficient Variation 13.8 % (11.7-14.2); RDW Standard Deviation 45.1 fL (35.1-46.3); Red Blood Cell Count 2.25 M/mm3 (3.80-5.20); White Blood Cell Count 7.03 K/mm3 (4.00-11.30)
[2020-05-17 09:50] LABS: Alanine Aminotransfer (ALT/SGP 9 U/L (12-78); Albumin, Blood 1.3 g/dL (3.4-5.0); Albumin/Globulin Ratio 0.3 (0.8-1.8); Alk Phos 137 U/L (50-136); Anion Gap 7 mmol/L (6-16); Aspartate Aminotrans (AST/SGOT 8 U/L (12-37); Bilirubin, Total <0.1 mg/dL (0.1-1.0); Blood Urea Nitrogen 37 mg/dL (8-24); CO2, Blood 18 mmol/L (21-32); Calcium, Blood 7.7 mg/dL (8.5-10.1); Chloride, Blood 113 mmol/L (98-108); Creatinine, Blood 0.84 mg/dL (0.40-1.00); Globulin, Blood 3.9 g/dL (2.2-4.0); Glomerular Filtration Rate >60 (60-); Glucose, Blood 179 mg/dL (70-99); Potassium, Blood 4.6 mmol/L (3.5-5.5); Sodium, Blood 138 mmol/L (136-145); Total Protein, Blood 5.2 g/dL (6.4-8.2)
[2020-05-17 12:33] LABS: Percent Saturation 14.1 % (15.0-50.0)
[2020-05-18 00:04] LABS: Stool Occult Blood Guaiac 1 Neg (Neg)
[2020-05-18 03:54] LABS: BASOPHILS ABSOLUTE AUTO 0.05 K/mm3 (0.00-0.23); BASOPHILS PERCENT AUTO 1 % (0-2); EOSINOPHILS ABSOLUTE AUTO 0.36 K/mm3 (0.00-0.68); EOSINOPHILS PERCENT AUTO 4 % (0-6); Hematocrit 24.5 % (33.0-51.0); Hemoglobin 7.9 g/dL (11.5-16.0); IMMATURE GRAN ABSOLUTE AUTO 0.04 K/mm3 (0.00-0.10); IMMATURE GRAN PERCENT AUTO 0 % (0-1); LYMPHOCYTES ABSOLUTE AUTO 0.73 K/mm3 (0.84-5.20); LYMPHOCYTES PERCENT AUTO 8 % (21-46); MONOCYTES ABSOLUTE AUTO 0.57 K/mm3 (0.16-1.47); MONOCYTES PERCENT AUTO 6 % (4-13); Mean Corpuscular HGB 29.3 pg (26.0-34.0); Mean Corpuscular HGB Conc 32.2 g/dL (31.5-36.5); Mean Corpuscular Volume 91 fL (80-100); Mean Platelet Volume 9.5 fL (9.1-12.4); NEUTROPHILS ABSOLUTE AUTO 7.39 K/mm3 (1.96-9.15); NEUTROPHILS PERCENT AUTO 81 % (41-73); Platelet Count 216 K/mm3 (150-400); RDW Coefficient Variation 13.9 % (11.7-14.2); RDW Standard Deviation 45.4 fL (35.1-46.3); White Blood Cell Count 9.14 K/mm3 (4.00-11.30)
[2020-05-18 04:13] LABS: Anion Gap 5 mmol/L (6-16); Blood Urea Nitrogen 30 mg/dL (8-24); Bun/Creatinine Ratio 40.7 (12.0-20.0); CO2, Blood 19 mmol/L (21-32); Calcium, Blood 7.7 mg/dL (8.5-10.1); Chloride, Blood 111 mmol/L (98-108); Creatinine, Blood 0.74 mg/dL (0.40-1.00); Glomerular Filtration Rate >60 (60-); Glucose, Blood 145 mg/dL (70-99); Potassium, Blood 4.6 mmol/L (3.5-5.5); Sodium, Blood 135 mmol/L (136-145)
[2020-05-19 06:09] LABS: Anion Gap 7 mmol/L (6-16); Blood Urea Nitrogen 23 mg/dL (8-24); Bun/Creatinine Ratio 36.5 (12.0-20.0); CO2, Blood 20 mmol/L (21-32); Calcium, Blood 8.1 mg/dL (8.5-10.1); Chloride, Blood 107 mmol/L (98-108); Creatinine, Blood 0.63 mg/dL (0.40-1.00); Glomerular Filtration Rate >60 (60-); Glucose, Blood 201 mg/dL (70-99); Potassium, Blood 4.7 mmol/L (3.5-5.5); Sodium, Blood 134 mmol/L (136-145)
[2020-05-19 12:45] LABS: Hematocrit 25.1 % (33.0-51.0); Hemoglobin 8.2 g/dL (11.5-16.0)
[2020-05-20 05:50] LABS: Hematocrit 26.1 % (33.0-51.0); Hemoglobin 8.5 g/dL (11.5-16.0)
[2020-05-20 06:17] LABS: Albumin, Blood 1.5 g/dL (3.4-5.0); Anion Gap 7 mmol/L (6-16); Blood Urea Nitrogen 19 mg/dL (8-24); Bun/Creatinine Ratio 30.8 (12.0-20.0); CO2, Blood 20 mmol/L (21-32); Chloride, Blood 106 mmol/L (98-108); Creatinine, Blood 0.62 mg/dL (0.40-1.00); Glomerular Filtration Rate >60 (60-); Glucose, Blood 70 mg/dL (70-99); Phosphorus, Blood 2.9 mg/dL (2.5-4.9); Potassium, Blood 4.5 mmol/L (3.5-5.5); Sodium, Blood 133 mmol/L (136-145)
[2020-05-21 04:53] LABS: Hematocrit 25.1 % (33.0-51.0); Hemoglobin 8.2 g/dL (11.5-16.0)
[2020-05-21 05:15] LABS: Albumin, Blood 1.5 g/dL (3.4-5.0); Anion Gap 6 mmol/L (6-16); Blood Urea Nitrogen 17 mg/dL (8-24); Bun/Creatinine Ratio 26.2 (12.0-20.0); CO2, Blood 22 mmol/L (21-32); Calcium, Blood 7.6 mg/dL (8.5-10.1); Chloride, Blood 105 mmol/L (98-108); Creatinine, Blood 0.65 mg/dL (0.40-1.00); Glomerular Filtration Rate >60 (60-); Glucose, Blood 53 mg/dL (70-99); Phosphorus, Blood 2.9 mg/dL (2.5-4.9); Potassium, Blood 4.5 mmol/L (3.5-5.5); Sodium, Blood 133 mmol/L (136-145)
[2020-05-22 10:05] LABS: BASOPHILS ABSOLUTE AUTO 0.02 K/mm3 (0.00-0.23); BASOPHILS PERCENT AUTO 0 % (0-2); EOSINOPHILS ABSOLUTE AUTO 0.03 K/mm3 (0.00-0.68); EOSINOPHILS PERCENT AUTO 0 % (0-6); Hematocrit 26.8 % (33.0-51.0); Hemoglobin 8.4 g/dL (11.5-16.0); IMMATURE GRAN ABSOLUTE AUTO 0.08 K/mm3 (0.00-0.10); IMMATURE GRAN PERCENT AUTO 1 % (0-1); LYMPHOCYTES PERCENT AUTO 3 % (21-46); MONOCYTES ABSOLUTE AUTO 0.55 K/mm3 (0.16-1.47); MONOCYTES PERCENT AUTO 5 % (4-13); Mean Corpuscular HGB Conc 31.3 g/dL (31.5-36.5); Mean Corpuscular Volume 89 fL (80-100); Mean Platelet Volume 9.8 fL (9.1-12.4); NEUTROPHILS ABSOLUTE AUTO 9.78 K/mm3 (1.96-9.15); NEUTROPHILS PERCENT AUTO 91 % (41-73); Platelet Count 134 K/mm3 (150-400); RDW Coefficient Variation 14.5 % (11.7-14.2); RDW Standard Deviation 47.2 fL (35.1-46.3); White Blood Cell Count 10.76 K/mm3 (4.00-11.30)
[2020-05-22 10:15] LABS: Albumin, Blood 1.5 g/dL (3.4-5.0); Anion Gap 9 mmol/L (6-16); Blood Urea Nitrogen 16 mg/dL (8-24); Bun/Creatinine Ratio 26.2 (12.0-20.0); CO2, Blood 19 mmol/L (21-32); Calcium, Blood 7.8 mg/dL (8.5-10.1); Chloride, Blood 104 mmol/L (98-108); Creatinine, Blood 0.61 mg/dL (0.40-1.00); Glomerular Filtration Rate >60 (60-); Glucose, Blood 156 mg/dL (70-99); Phosphorus, Blood 2.7 mg/dL (2.5-4.9); Potassium, Blood 4.6 mmol/L (3.5-5.5); Sodium, Blood 132 mmol/L (136-145)
[2020-05-23 06:29] LABS: Hematocrit 25.5 % (33.0-51.0); Hemoglobin 8.2 g/dL (11.5-16.0); Mean Corpuscular HGB 28.3 pg (26.0-34.0); Mean Corpuscular HGB Conc 32.2 g/dL (31.5-36.5); Mean Corpuscular Volume 88 fL (80-100); Mean Platelet Volume 9.9 fL (9.1-12.4); Platelet Count 139 K/mm3 (150-400); RDW Coefficient Variation 14.4 % (11.7-14.2); RDW Standard Deviation 46.3 fL (35.1-46.3); White Blood Cell Count 10.49 K/mm3 (4.00-11.30)
[2020-05-23 06:44] LABS: Albumin, Blood 1.4 g/dL (3.4-5.0); Anion Gap 11 mmol/L (6-16); Blood Urea Nitrogen 19 mg/dL (8-24); Bun/Creatinine Ratio 29.4 (12.0-20.0); CO2, Blood 18 mmol/L (21-32); Calcium, Blood 7.2 mg/dL (8.5-10.1); Chloride, Blood 103 mmol/L (98-108); Creatinine, Blood 0.65 mg/dL (0.40-1.00); Glomerular Filtration Rate >60 (60-); Glucose, Blood 155 mg/dL (70-99); Phosphorus, Blood 2.8 mg/dL (2.5-4.9); Potassium, Blood 4.7 mmol/L (3.5-5.5); Sodium, Blood 132 mmol/L (136-145)
[2020-05-24 06:02] LABS: Albumin, Blood 1.4 g/dL (3.4-5.0); Anion Gap 11 mmol/L (6-16); Blood Urea Nitrogen 21 mg/dL (8-24); Bun/Creatinine Ratio 32.6 (12.0-20.0); CO2, Blood 19 mmol/L (21-32); Calcium, Blood 7.5 mg/dL (8.5-10.1); Chloride, Blood 102 mmol/L (98-108); Creatinine, Blood 0.64 mg/dL (0.40-1.00); Glomerular Filtration Rate >60 (60-); Glucose, Blood 166 mg/dL (70-99); Phosphorus, Blood 2.5 mg/dL (2.5-4.9); Potassium, Blood 4.4 mmol/L (3.5-5.5); Sodium, Blood 132 mmol/L (136-145)
[2020-05-24] MEDS ORDERED: HUMALOG KW100 UNIT/1 (14:34)
== END 2020-05-24 15:30 | DRG 308 ==
LOC: ER 11:33 → PCU 14:34 → MEDS 05-23 15:16
PROVIDERS: Emergency Medicine; Internal Medicine; Nurse Practitioner Acute Care; Student in an Organized Health Care Education/Training Program; ADMIT Hospitalist
PROC: 30233N1 Transfusion of Nonautologous Red Blood Cells into Peripheral Vein, Percutaneous Approach (ICD-10-PCS; principal; 2020-05-17)
DX: I44.2 Atrioventricular block, complete (principal); L89.43 Pressure ulcer of contiguous site of back, buttock and hip, stage 3; R78.81 Bacteremia; N17.9 Acute kidney failure, unspecified; E87.2 Acidosis; I24.8 Other forms of acute ischemic heart disease; C78.6 Secondary malignant neoplasm of retroperitoneum and peritoneum; E87.1 Hypo-osmolality and hyponatremia; M86.652 Other chronic osteomyelitis, left thigh; Z20.828 Contact with and (suspected) exposure to other viral communicable diseases; B96.89 Other specified bacterial agents as the cause of diseases classified elsewhere; E11.22 Type 2 diabetes mellitus with diabetic chronic kidney disease; I12.9 Hypertensive chronic kidney disease with stage 1 through stage 4 chronic kidney disease, or unspecified chronic kidney disease; N18.9 Chronic kidney disease, unspecified; I25.10 Atherosclerotic heart disease of native coronary artery without angina pectoris; E11.51 Type 2 diabetes mellitus with diabetic peripheral angiopathy without gangrene; E11.649 Type 2 diabetes mellitus with hypoglycemia without coma; E78.5 Hyperlipidemia, unspecified; E66.01 Morbid (severe) obesity due to excess calories; G47.33 Obstructive sleep apnea (adult) (pediatric); I48.0 Paroxysmal atrial fibrillation; J44.9 Chronic obstructive pulmonary disease, unspecified; M06.9 Rheumatoid arthritis, unspecified; D63.1 Anemia in chronic kidney disease; C44.500 Unspecified malignant neoplasm of anal skin; E11.69 Type 2 diabetes mellitus with other specified complication; D50.9 Iron deficiency anemia, unspecified; Z74.09 Other reduced mobility; Z86.73 Personal history of transient ischemic attack (TIA), and cerebral infarction without residual deficits; Z68.25 Body mass index [BMI] 25.0-25.9, adult; Z85.528 Personal history of other malignant neoplasm of kidney; Z88.8 Allergy status to other drugs, medicaments and biological substances; Z86.718 Personal history of other venous thrombosis and embolism; Z89.611 Acquired absence of right leg above knee; Z86.711 Personal history of pulmonary embolism; Z74.01 Bed confinement status; Z79.82 Long term (current) use of aspirin; Z79.4 Long term (current) use of insulin; Z79.51 Long term (current) use of inhaled steroids; Z79.899 Other long term (current) drug therapy; Z88.0 Allergy status to penicillin
CPT/HCPCS: 36415; 36430; 71045; 80048; 80053; 80069; 81001; 82272; 82550; 82607; 82728; 82746; 82803; 82947; 83036; 83540; 83550; 83735; 84100; 84443; 84484; 85014; 85018; 85025; 85027; 85610; 86850; 86900; 86901; 86923; 87040; 87086; 93005; 93010; 93306; 94640; 94760; 96360; 97110; 97162; 97165; 97530; 99285-25; A9270; A9270-GY; J0696; J0780; J1644; J2405; J2765; J3010; J7030; J7042; J7799; P9016; U0004

== ENCOUNTER 2020-05-26 06:42 | Emergency (ER) | payer MEDICARE, OTHER ==
[~2020-05-26] VITALS: Ht 137.2 cm; Wt 68.0 kg
[~2020-05-26 06:42] MED LIST changes: +CEFP200 PO; +CYCL10 PO; +HUMALOG KW100 UNIT/1
== END 2020-05-26 09:32 | disposition home or self-care (01) ==
LOC: ER 06:42
DX: R09.02 Hypoxemia (principal); J44.9 Chronic obstructive pulmonary disease, unspecified; Z79.4 Long term (current) use of insulin; Z79.82 Long term (current) use of aspirin; Z79.51 Long term (current) use of inhaled steroids; Z79.899 Other long term (current) drug therapy; Z99.81 Dependence on supplemental oxygen
CPT/HCPCS: 93005; 93010; 99285-25

== ENCOUNTER 2020-05-31 07:06 | Inpatient (IN) | payer MEDICARE, OTHER ==
[~2020-05-31] VITALS: Ht 154.9 cm; Wt 67.7 kg
[2020-05-31 07:30] LABS: Calcium, Ionized (POC) 1.13 mmol/L (1.10-1.46); Chloride (POC) 98 mmol/L (98-108); Creatinine (POC) 1.3 mg/dL (0.6-1.0); Glucose (ISTAT POC) 338 mg/dL (70-99); Hemoglobin (POC) 9.9 g/dL (12.0-16.0); Potassium (POC) 5.9 mmol/L (3.5-5.5); Sodium (POC) 128 mmol/L (135-148); Total CO2 (POC) 20 mmol/L (21-32)
[2020-05-31 07:42] LABS: BASOPHILS ABSOLUTE AUTO 0.05 K/mm3 (0.00-0.23); BASOPHILS PERCENT AUTO 0 % (0-2); EOSINOPHILS PERCENT AUTO 0 % (0-6); Hematocrit 27.3 % (33.0-51.0); Hemoglobin 8.6 g/dL (11.5-16.0); IMMATURE GRAN ABSOLUTE AUTO 0.28 K/mm3 (0.00-0.10); IMMATURE GRAN PERCENT AUTO 1 % (0-1); LYMPHOCYTES PERCENT AUTO 2 % (21-46); MONOCYTES ABSOLUTE AUTO 1.31 K/mm3 (0.16-1.47); MONOCYTES PERCENT AUTO 5 % (4-13); Mean Corpuscular HGB 28.4 pg (26.0-34.0); Mean Corpuscular HGB Conc 31.5 g/dL (31.5-36.5); Mean Corpuscular Volume 90 fL (80-100); Mean Platelet Volume 11.1 fL (9.1-12.4); NEUTROPHILS ABSOLUTE AUTO 24.82 K/mm3 (1.96-9.15); NEUTROPHILS PERCENT AUTO 92 % (41-73); Platelet Count 114 K/mm3 (150-400); RDW Coefficient Variation 15.2 % (11.7-14.2); RDW Standard Deviation 49.8 fL (35.1-46.3); Red Blood Cell Count 3.03 M/mm3 (3.80-5.20); White Blood Cell Count 26.96 K/mm3 (4.00-11.30)
[2020-05-31 08:15] LABS: Albumin, Blood 1.7 g/dL (3.4-5.0); Albumin/Globulin Ratio 0.4 (0.8-1.8); Bilirubin, Total 0.4 mg/dL (0.1-1.0); Bun/Creatinine Ratio 48.8 (12.0-20.0); Calcium, Blood 7.7 mg/dL (8.5-10.1); Creatinine, Blood 1.25 mg/dL (0.40-1.00); Globulin, Blood 4.1 g/dL (2.2-4.0); Total Protein, Blood 5.8 g/dL (6.4-8.2)
[2020-05-31] MEDS ORDERED: Percocet 5-3251 EACH PO ×2 (09:53→10:13)
[2020-05-31] MEDS ORDERED: DOCU100 PO (10:11)
[2020-05-31] MEDS ORDERED: TRAZ100 PO (10:11)
[2020-05-31] MEDS ORDERED: LOSA50 PO (10:11)
[2020-05-31] MEDS ORDERED: GLIP2.5ER PO (10:12)
[2020-05-31] MEDS ORDERED: MELA3 PO (10:12)
[2020-05-31] MEDS ORDERED: PRED20 PO (10:12)
[2020-05-31] MEDS ORDERED: BASAGLAR K100 UNIT/1 (10:12)
[2020-05-31] MEDS ORDERED: GABA300 PO (10:13)
[2020-05-31 10:24] LABS: Adenovirus Not Detected (NOT DETECT); Bordetella pertussis Not Detected (NOT DETECT); Coronavirus 229E Not Detected (NOT DETECT); Coronavirus HKU1 Not Detected (NOT DETECT); Coronavirus NL63 Not Detected (NOT DETECT); Coronavirus OC43 Not Detected (NOT DETECT); Human Metapneumovirus Not Detected (NOT DETECT); Human Rhinovirus/Enterovirus Not Detected (NOT DETECT); Influenza A/2009-H1 Not Detected (NOT DETECT); Influenza A/H1 Not Detected (NOT DETECT); Influenza A/H3 Not Detected (NOT DETECT); Influenza B Not Detected (NOT DETECT); Parainfluenza Virus 1 Not Detected (NOT DETECT); Parainfluenza Virus 2 Not Detected (NOT DETECT); Parainfluenza Virus 3 Not Detected (NOT DETECT); Parainfluenza Virus 4 Not Detected (NOT DETECT); Respiratory Syncytial Virus Not Detected (NOT DETECT); SARS-Cov-2 (COVID-19), BioFire Not Detected (NOT DETECT)
[2020-05-31 10:25] LABS: Chlamydophila pneumoniae Not Detected (NOT DETECT); Mycoplasma pneumoniae Not Detected (NOT DETECT)
[2020-05-31 11:07] LABS: PO2 Arterial 70.2 mmHg (80-100); pH Blood Arterial 7.24 (7.35-7.45)
[2020-05-31 11:08] LABS: PCO2 Arterial 48.1 mmHg (35-45)
--- NOTE | 2020-05-31 12:36 | NUR ---
ASSUMPTION OF CARE PATIENT ARRIVED TO UNIT VIA STRETCHER AND 4 PERSON ASSIST TO BED AT 1145. RECEIVED REPORT FROM GORDO RN FROM ED. PATIENT WITH EYES OPEN, LABORED BREATHING PATTERN, NO VERBAL RESPONSE, DOES NOT FOLLOW COMMANDS. VITALS CHARTED. AT 1230 DR. MUNOZ AT BEDSIDE TO EVALULATE PATIENT REGARDING RESPIRATORY STATUS. THIS RN SPOKE WITH DR. PRESTON VIA TELEPHONE, REPORTED PATIENT'S B/P, RECEIVED ORDERS TO STOP FLUIDS. DR. PRESTON TO REASSESS PLAN, AWAITING FOLLOW UP TREATMENT ORDERS.
--- NOTE | 2020-05-31 12:36 | NUR ---
Update received from Dr Urbina. She is calling POAna/Jo-Ann with update on cont. critical & declining status with endocarditis, shock and poor surgical potential due to multiple severe comorbidities. Jo-Ann will need to make decisions for medical treatment urgently, due to pt's inability to do so. Plan discussed with will follow up with Jo-Ann later for support and assist with any change in goals/plans/orders per Dr Urbina after their conversation.
[2020-05-31 12:58] LABS: Bun/Creatinine Ratio 50.9 (12.0-20.0); Creatinine, Blood 1.16 mg/dL (0.40-1.00)
--- NOTE | 2020-05-31 13:00 | NUR ---
Call placed to pt's oncologist, Dr Fiore with an update on pt's condition. Requested that he call pt's POA/Jo-Ann to review prognosis and plan of care, urgently to assist with Jo-Ann's decision making. Spoke with SHAYAN Griffin and she stated would call Jo-Ann. Ph # for Jo-Ann was provided to Gaby.
--- NOTE | 2020-05-31 13:40 | NUR ---
Call placed to TREVORAna Busch with an update and to inform her that Dr Fiore had been called with an update and would be calling her. She had not received a call from him yet. She is also awaiting a report from Dr Urbina on whether another hospital with cardiac surgery services would be willing to accept Kailee. She states she cannot change any goals of care or code status for pt until she hears from Dr Fiore or Dr Urbina on acceptance/lack of acceptance from another hospital. I gently informed Jo-Ann that Kailee's body may make that decision before resolution of communication is received. Jo-Ann verbalized understanding. She was out running errands and could not write the ICU Ph # down but stated she had the hospital # and will call if decision re: tx goals changes. This was reported to Dr Gaston, nurses and Dr Urbina. Pt in process of being intubated and ventilated at this time.
[2020-05-31 13:42] LABS: Source, Urine Catheter
[2020-05-31 14:02] LABS: Appearance, Urine Turbid (Clear); Bilirubin, Urine Neg (Neg); Blood, Urine 5+ (Neg); Color, Urine Yellow (P-Yellow); Glucose Qualitative, Urine 2+ (Neg); Ketones, Urine Neg (Neg); Leukocyte Esterase, Urine 2+ (Neg); Nitrite, Urine Neg (Neg); Protein, Urine 3+ (Neg); Urobilinogen, Urine NORM (Normal)
[2020-05-31 14:49] LABS: Bacteria Many /hpf; Red Blood Cells, Urine TNTC /hpf (0-2); Squamous Epithelial Cells Few /hpf (Few)
[2020-05-31 14:50] LABS: Amorphous Heavy (0-Heavy); Mucus Light (0-Heavy); Renal Epithelial Few /hpf (0-Rare); Transitional Epithelial Cells Mod /hpf (0-Rare); Yeast/Fungi Urine Many /hpf
[2020-05-31 14:59] LABS: Other Crystals Many /hpf
[2020-05-31 15:25] LABS: PO2 Arterial 175 mmHg (80-100); pH Blood Arterial 7.35 (7.35-7.45)
--- NOTE | 2020-05-31 15:48 | NUR ---
INTUBATION DR. GLOVER TO BEDSIDE ACCOMPANIED BY RT FOR INTUBATION. LEVOPHED INCREASED TO 8MCG/MIN AT 1335. AT 1338 20MG OF ETOMIDATE AND 20MG OF ALIVIA WERE GIVEN VIA CENTRAL LINE. AT 1340 ETT WAS PLACED, SIZE 7.0, 24CM AT THE LIP. VERIFIED PLACEMENT BY CXR, RT ADJUSTED PER PHYSICIAN ORDERS, NOW 21CM AT THE LIP. VENTILATOR SETTINGS INTIAILLY PEEP 5, FIO2 50%, TV 400. PROPOFOL WAS STARTED AT 1411 AT 10MCG/KG/MIN PER SEDATION AND INCREASED TO 20MCG/KG/MIN AT 1415. AT 1420, PATIENTS O2 SATS DECREASING TO 85-89%. VENT SETTINGS ADJUSTED TO PEEP [address] RUSSELL. AT 1430 PATIENT CONTINUED TO DROP SATURATIONS, VENT SETTINGS CHANGED TO PEEP 10, AND 60% FIO2. PATIENT NOW SEDATED, 02 SATS 95-100%. BELOW 89%
--- NOTE | 2020-05-31 16:45 | NUR ---
WOUNDS WOUND VAC REPLACED TO COCCYX WOUND. PICTURES COMPLETED.
--- NOTE | 2020-05-31 18:02 | NUR ---
SHIFT SUMMARY PATIENT REMAINS SEDATED AND INTUBATED. VENT SETTINGS PEEP 10, FIO2 55%, VT 400, RATE 16. VITALS STABLE. LEVOPHED AT 8MCG/MIN, PROPOFOL AT 30MCG/KG/MIN. OG TO LIS WITH GREEN, SCANT DRAINAGE. TAPIA TO GRAVITY WTIH MINIMAL URINE OUTPUT. NOTIFIED DR. CARPENTER OF URINE OUTPUT, DR. CARPENTER ALSO VISUALIZED PATIENT'S PRESSURE ULCERS AT BEDSIDE DURING WOUND VAC CHANGE. WILL MONITOR, AND REPORT TO ONCOMING RN.
--- NOTE | 2020-05-31 23:29 | NUR ---
CARE ASSUMED 1900 PT INTUBATED AND SEDATED. PROPOFOL AT 30 MCG/KG/MIN. LEVOPHED AT 8 MCG/MIN. PT OPENS EYES SPONTANEOUSLY, FOLLOW DIRECTIONS, AND STATES BEING IN PAIN. PAIN MEDICATIONS GIVEN PER EMAR. VENT SETTINGS OF AC 14/400/10/55%, SPO2 > 95%. TEMP TAPIA (99.3) IN PLACE WITH 100 MLS OF URINE IN THE BAG. WOUND VAC ON COCCYX AND CLEAR DRESSING APPLIED TO CREATE BETTER SEAL. CENTERAL LINE IN RIGHT IJ. OG TO LIS WITH GREEN SCANT DRAINAGE. VSS. RECIEVED CRITICAL LAB VALUE OF TROPONIN OF 0.605, DR. CARPENTER CALLED AND NO NEW ORDERS RECIEVED.
[2020-06-01 04:05] LABS: BASOPHILS ABSOLUTE AUTO 0.03 K/mm3 (0.00-0.23); BASOPHILS PERCENT AUTO 0 % (0-2); EOSINOPHILS ABSOLUTE AUTO 0.14 K/mm3 (0.00-0.68); EOSINOPHILS PERCENT AUTO 1 % (0-6); Hematocrit 24.5 % (33.0-51.0); Hemoglobin 7.8 g/dL (11.5-16.0); IMMATURE GRAN ABSOLUTE AUTO 0.38 K/mm3 (0.00-0.10); IMMATURE GRAN PERCENT AUTO 2 % (0-1); LYMPHOCYTES ABSOLUTE AUTO 1.35 K/mm3 (0.84-5.20); LYMPHOCYTES PERCENT AUTO 7 % (21-46); MONOCYTES ABSOLUTE AUTO 1.08 K/mm3 (0.16-1.47); MONOCYTES PERCENT AUTO 6 % (4-13); Mean Corpuscular HGB 28.2 pg (26.0-34.0); Mean Corpuscular HGB Conc 31.8 g/dL (31.5-36.5); Mean Corpuscular Volume 88 fL (80-100); Mean Platelet Volume 10.9 fL (9.1-12.4); NEUTROPHILS ABSOLUTE AUTO 16.78 K/mm3 (1.96-9.15); NEUTROPHILS PERCENT AUTO 85 % (41-73); Platelet Count 120 K/mm3 (150-400); RDW Coefficient Variation 15.1 % (11.7-14.2); Red Blood Cell Count 2.77 M/mm3 (3.80-5.20); White Blood Cell Count 19.76 K/mm3 (4.00-11.30)
[2020-06-01 04:24] LABS: Albumin, Blood 1.3 g/dL (3.4-5.0); Albumin/Globulin Ratio 0.4 (0.8-1.8); Bilirubin, Total 0.4 mg/dL (0.1-1.0); Bun/Creatinine Ratio 51.4 (12.0-20.0); Calcium, Blood 7.4 mg/dL (8.5-10.1); Creatinine, Blood 1.09 mg/dL (0.40-1.00); Globulin, Blood 3.7 g/dL (2.2-4.0); Magnesium, Blood 2.1 mg/dL (1.6-2.4); Potassium, Blood 5.6 mmol/L (3.5-5.5)
[2020-06-01 05:05] LABS: PCO2 Arterial 29.3 mmHg (35-45); PO2 Arterial 133 mmHg (80-100); pH Blood Arterial 7.43 (7.35-7.45)
--- NOTE | 2020-06-01 06:39 | NUR ---
SHIFT SUMMARY PT INTUBATED AND SEDATED. PROPOFOL AT 30 MCG/KG/MIN AND LEVOPHED AT 8 MCG/MIN. VENT SETTINGS OF AC 14/400/10/40%. PT EASILY AWAKES DURING STIMULI, FOLLOWS COMMANDS, ANSWERS SIMPLE YES/NO QUESTIONS, AND ABLE TO STATE WHEN IN PN. TEMP TAPIA IN PLACE WITH TOTAL URINE OUTPUT OF 475 DURING THIS SHIFT. WOUND VAC IN PLACE WITH SCANT BLOOD TINGED DRINAGE. TEMP INCREASED TO 99.7. WILL REPORT TO ONCOMING SHIFT. SPOKE TO DR. MAST AND UPDATED ON PT.
--- NOTE | 2020-06-01 07:00 | NUR ---
REC'D REPORT FROM RIZWAN BURGER ON THIS PT AND AM NOW ASSUMING CARE.
--- NOTE | 2020-06-01 07:15 | NUR ---
AM ASSESSMENT: PT REMAINS INTUBATED AND SEDATED ON TITRATED PROPOFOL CURRENTLY AT 30MCG/KG/MIN. IN BILATERAL WRIST RESTRAINTS FOR SAFETY. PT IS DROWSY BUT AWAKENS TO NOXIOUS STIMULI AND WILL AWAKEN AND OPEN EYES AND TRACKS STAFF WHEN CARE IS BEING PROVIDED. PT WILL ASNWER SIMPLE YES/NO QUESTIONS AND FOLLOW SIMPLE COMMANDS. LUNGS ARE CLEAR T/O BILATERALLY. VENT SETTINGS AC-14/400/8/40% WITH VD47-PMV 90% RANGE. HR REGULAR, ACCEL JUNCTIONAL RHYTHM-70'S RANGE. LEVOPHED CURRENTLY AT 8MCG/MIN TO MAINTAIN MAP >65. ABD SLIGHTLY DISTENDED, NO GRIMACE TO PALPATION. BT'S SOMEWHAT HYPOACTIVE X4. WILL ADDRESS STARTING TUBE FEEDINGS TODAY. OGT TO LIS AT THIS TIME WITH MINIMAL GREEN OUTPUT. CHRONIC TAPIA CATH DRAINING YELLOW URINE WITH SEDIMENT OT GRAVITY. PT HAS EXTENSIVE WOUNDS TO THE COCCYX AND RT BUTTOCKS WITH WOUND VAC IN PLACE AND INTACT. SEE PICS ON NURSING PORTION OF PAPER CHART. -FULL CODE STATUS -CBG'S Q6H.
--- NOTE | 2020-06-01 10:53 | NUR ---
Palliative Care case conference and visit note: Case conf with Dr Conley this am and later pt's RN. H&P and echo of 05/31/[address] Fiore with request to contact pt's surrogate decision maker re: prognosis and goals of care. I made f/u t/c to 's office to let them know I was sending records for 's review and again provided surrogate decision maker's name and phone #. Jo-Ann Villanueva ph [phone] Fiore's input before considering changes to pt's current plan of care, Full Code/full care status. RN had received t/c from Jo-Ann Villanueva and was returning her call. She will ask if she's spoken with Dr Fiore yet. Updated obtained on current status. Pt remains vented. She is responsive to stimuli when staff in caring for her.
--- NOTE | 2020-06-01 11:09 | NUR ---
CHAPLAIN SOLANO WENT INTO RM TO PRAY AND GIVE SUPPORTIVE SERVICES TO PT.
--- NOTE | 2020-06-01 12:20 | NUR ---
Case conference NOTE: I received t/c from pt's oncologist, Dr Fiore. He states he spoke with pt's surrogate medical decision maker yesterday afternoon and reviewed pt's condition with her, answered questions. He states Jo-Ann stated all her questions had not been answered but could not specify which information she was still seeking. He has reviewed the pt's echo and H&P that I faxed him this am. He will reach out to Jo-Ann again by tomorrow to follow up and support the process of advanced care planning for Kailee. He states he told Jo-Ann that due to pt's metastatic disease her prognosis did not entail "years left to live", even before this illness and that severe infections are to be expected with her metastatic cancer and termite helper treatment. Report on my conversation with Dr Fiore relayed to pt's RN, Javier.
--- NOTE | 2020-06-01 15:47 | NUR ---
Spiritual care visit conducted. Patient is known to this securities underwriter from prior hospitalizations. Landon opens her eyes when I say patient's name and touch her shoulder but is non-responsive after this. Patient has previously told me that prayer is very meaningful to her and so I provide prayer for patient. I will continue to remain available to patient and those in her [place].
--- NOTE | 2020-06-01 18:45 | NUR ---
SHIFT SUMMARY: ASSESSMENT MOSTLY UNCHANGED SINCE AM ASSESSMENT EXCEPT LEVOPHED NOW AT 7MCG/MIN AND PEEP DECREASED FROM 10 TO PEEP OF 5. PT REMAINS INTUBATED AND SEDATED ON PROPOFOL @30MCG/KG/HR. PT MEDICATE X2 WITH FENTANYL FOR GENERAL PAIN AND PAIN R/T EXTENSIVE WOUNDS.
--- NOTE | 2020-06-01 19:00 | NUR ---
REPORTED OFF TO RIZWAN PENALOZA WHOM ARE NOW ASSUMING CARE OF THIS PT.
--- NOTE | 2020-06-01 21:17 | NUR ---
CARE ASSUMED 1900 PT INTUBATED AND SEDATED. PROPOFOL AT 30 mcg/kg/min AND NOREPINEPHRINE 7 MCG/MIN. AC 14/400/5/35%, SPO2 > 95%. PT EASILY AWAKENS WITH STIMULI. FOLLOWS SIMPLE COMMANDS AND ANSWERS QUESTIONS BY NODDING YES/NO. STATES YES TO KNOWING WHERE SHE IS AND ABLE TO STATE WHEN SHE IS IN PN. VITAL HIGH PROTEIN AT GOAL OF 25 ML/HR, RESIDUAL OF 15 MLS. BOWEL TONES ACTIVE AND FAINT. LUNG SOUNDS CLEAR AND DIM. TEMP TAPIA (100.8) DRAINING TO GRAVITY WITH 300 MLS OF YELLOW SEDIMENT URINE. WOUND VAC IN PLACE WITH LIGHT BLOOD TINGED DISCHARGE. DURING BEDTIME PT WAS WIDE AWAKE, GRIMACING, NOT TOLERATING VENT (COUGHING, INCREASED PEAK PRESSURES) AND NODDING YES TO BEING IN PAIN MULTIPLE TIMES. PT GIVEN FENTANYL, SEE EMAR. AFTER BEDTIME PT WAS ABLE TO FALL BACK ASLEEP.
[2020-06-02 03:46] LABS: BASOPHILS ABSOLUTE AUTO 0.02 K/mm3 (0.00-0.23); BASOPHILS PERCENT AUTO 0 % (0-2); EOSINOPHILS ABSOLUTE AUTO 0.16 K/mm3 (0.00-0.68); EOSINOPHILS PERCENT AUTO 1 % (0-6); Hematocrit 24.8 % (33.0-51.0); Hemoglobin 7.7 g/dL (11.5-16.0); IMMATURE GRAN ABSOLUTE AUTO 0.24 K/mm3 (0.00-0.10); IMMATURE GRAN PERCENT AUTO 2 % (0-1); LYMPHOCYTES ABSOLUTE AUTO 0.88 K/mm3 (0.84-5.20); LYMPHOCYTES PERCENT AUTO 6 % (21-46); MONOCYTES ABSOLUTE AUTO 0.83 K/mm3 (0.16-1.47); MONOCYTES PERCENT AUTO 5 % (4-13); Mean Corpuscular HGB 27.5 pg (26.0-34.0); Mean Corpuscular Volume 89 fL (80-100); Mean Platelet Volume 11.4 fL (9.1-12.4); NEUTROPHILS ABSOLUTE AUTO 13.14 K/mm3 (1.96-9.15); NEUTROPHILS PERCENT AUTO 86 % (41-73); Platelet Count 100 K/mm3 (150-400); RDW Coefficient Variation 15.4 % (11.7-14.2); RDW Standard Deviation 50.4 fL (35.1-46.3); White Blood Cell Count 15.27 K/mm3 (4.00-11.30)
[2020-06-02 04:14] LABS: Anion Gap 6 mmol/L (6-16); Blood Urea Nitrogen 45 mg/dL (8-24); Bun/Creatinine Ratio 49.6 (12.0-20.0); CO2, Blood 22 mmol/L (21-32); Calcium, Blood 7.6 mg/dL (8.5-10.1); Chloride, Blood 109 mmol/L (98-108); Creatinine, Blood 0.91 mg/dL (0.40-1.00); Glomerular Filtration Rate >60 (60-); Glucose, Blood 259 mg/dL (70-99); Phosphorus, Blood 2.8 mg/dL (2.5-4.9); Potassium, Blood 4.7 mmol/L (3.5-5.5); Sodium, Blood 137 mmol/L (136-145)
--- NOTE | 2020-06-02 05:44 | NUR ---
SHIFT SUMMARY AND SBT/SEDATION VACATION PT INTUBATED AND SEDATED. PROPOFOL AT 30 MCG/KG/MIN AND LEVOPHED AT 4 MCG/MIN. AC 14/400/5/35%, SPO2 > 95%. MAP > 65. SBT DONE FOR 30 MINS. PT TOLERATED WELL. PLACED ON PS 5/5, FIO2 35%, SPO2 > 91%, PULLING GREATER THAN 400 TV, RR 20-23. PT AWAKE, ANSWERING QUESTIONS BY NODDING YES/NO, FOLLOWS COMMANDS, AND UNABLE TO MOVE LOWER EXTREM. PT STATES BEING IN PN AND TREATED PER EMAR POST SBT. SWITCHED BACK TO AC AND PROPOFOL RESTARTED, SEE FLOW SHEET. TEMP TAPIA IN PLACE (101.1), DRAINING TO GRAVITY WITH YELLOW SEDIMENT, 1000 MLS URINE OUTPUT. WOUND VAC IN PLACE WITH BLOOD TINGED DISCHARGE. DURING SEDATION VACATION ASKED PT IF SHE WANTS "KHURRAM" TO BE CONTACTED AND UPDATED ON HER STATUS. PT SHAKES HER HEAD NO. ASKED PT IF SHE WOULD LIKE "PREET" UPDATED AND PT NODS HER HEAD YES. ASKED PT IF SHE WOULD LIKE KHURRAM TO MAKE THE DECISIONS SINCE HE IS ON HER ADVANCED DIRECTIVE, PT NODS NO. ASKED PT IF SHE WOULD LIKE PREET TO MAKE THE DECISIONS, PT NODS YES. DURING THIS TIME PT ALSO NODS YES TO BEING IN PN AND DENIES BEING COLD. SEDATION VACATION AND SBT TOLERATED WELL.
--- NOTE | 2020-06-02 07:00 | NUR ---
REC'D BEDSIDE REPORT FROM JENNYFER/RIZWAN ZAZUETA AND AM NOW ASSUMING CARE OF THIS PT.
[2020-06-02 09:44] LABS: Vancomycin, Trough 19.1 ug/mL (5.0-10.0)
--- NOTE | 2020-06-02 10:35 | NUR ---
CALLED DR BORREGO'S CONSULT LINE PER DR CARPENTER'S REQUEST FOR PT'S PERSISTENT BATEREMIA. DR BORREGO'S CONSULT LINE REQUESTS A DR TO FOR INPT CONSULTS R/T HIGH NUMBER OF ID CONSULTS. THIS WAS REPORTED TO DR CARPENTER.
--- NOTE | 2020-06-02 17:59 | NUR ---
SHIFT ASSESSMENT: PT REMAINS INTUBATED AND SEDATED WITH TITRATED PROPOFL CURRENTLY AT 40MCG/KG/MIN. REMAINS IN BILATERAL WRIST RESTRAINTS, HOWEVER, NO MOVEMENT OF ANY EXTREMITIES SEEN THIS SHIFT. PT DOES NOT RESPOND TO STIMULI T/O SHIFT. HAD LONG TALK WITH ABOUT CONTINUED CARE, PT'S PROGNOSIS, AND PT'S WISHES. PT'S REPORTS SHE WISHES TO TRANSITION PT TO COMFORT CARE TOMORROW AFTER ALL THE FAMILY ARRIVES FROM OUT OF TOWN. LUNGS ARE CLEAR BUT DIMINISHED IN BILATERAL BASES, RT MORE DIMINISHED THAN LT. HR REGULAR, SR WITH 1ST DEGREE AVB- 50-90'S RANGE (MOSTLY 60-80'S RANGE). PT WITH 2+ DEPENDENT, PTTING EDEMA T/O BODY. PICC LINE WITH PRECEDEX @ 0.3MCG/MIN FOR CONTINUED SEDATION. ABD FIRM/SEVERELY DISTENDED WITH NEPHRO TUBE FEEDINGS AT GOAL RATE OF 25ML/HR WITH LOW RESIDUAL. NO BM THIS SHIFT. PT AGGRESIVELY DIURESED WITH LASIX IV TODAY WITH URINE OUTPUT-1300ML. PT HAS FOAM DRSGS TO BILATERAL GROIN FOR SKIN SPLITTING, C/D/I. LOWER GROIN FOLDS WITH SOME RASH AND NYSTATIN POWDER APPLIED.
--- NOTE | 2020-06-02 18:34 | NUR ---
SHIFT SUMMARY: PT REMAINS INTUBATED AND SEDATED ON TITRATED PROPOFOL CURRENTLY AT 35MCG/KG/MIN. REMAINS IN BILATERAL WRIST RESTRAINTS. PT REMAINS DROWSY T/O SHIFT BUT WILL OPEN EYES UP TO VOICE, BUT DOES NOT FOCUS OR TRACK. MINIMAL MOVEMENT OF UE'S SEEN. PT WITH RT AKA WITH WELL HEALED STUMP. LUNGS ARE CLEAR BUT DIMISHED T/O BILATERALLY. HR REGULAR, SR 70-80'S RANGE. PT REMAINS ON LEVOPHED 4MCG/HR TO MAINTAIN MAPS >65. ABD MILDLY DISTENDED. NO GRIMACE TO PALPATION. BT'S ACTIVE X4 QAUDS. VITAL HIGH PROTEIN TUBE FEEDS AT GOAL RATE OF 25ML/HR PER OGT, WITH MINIMAL RESIDUALS THIS SHIFT. NO BM TODAY. MAY NEED TO ADD SOMETHING IN ADDITION TO DOCUSATE PT. -FULL CODE STATUS -CBG'S Q6H -DO AM WEAN WITH HOPES FOR POTENTIAL EXTUBATION TOMORROW.
--- NOTE | 2020-06-02 19:15 | NUR ---
REPORTED OFF TO RIZWAN PENALOZA WHOM ARE NOW ASSUMING CARE OF THIS PT.
--- NOTE | 2020-06-02 21:00 | NUR ---
CARE ASSUMED 1900 PT INTUBATED AND SEDATED. PROPOFOL AT 30 MCG/KG/MIN AND LEVOPHED AT 4 MCG/MIN, MAP > 65. AC 14/400/5/35%, SPO2 88-92%. LUNG SOUNDS CLEAR AND DIM IN BASES. PT IS DROWSY, NODS "NO" TO BEING IN PAIN, AND UNABLE TO FOLLOW COMMANDS. TRACES OF EDEMA NOTED IN UPPER EXTREMS. BOWEL TONES ACTIVE, HIGH VITAL PROTEIN AT GOAL OF 25 ML/HR, NO RESIDUALS. TEMP TAPIA IN PLACE (100), DRAINING TO GRAVITY. WOUND VAC IN LOWER COCCYX. LOWER EXTREM PULSES VIA DOPPLER. WILL CONTINUE TO MONITOR.
[2020-06-03 04:34] LABS: BASOPHILS ABSOLUTE AUTO 0.01 K/mm3 (0.00-0.23); BASOPHILS PERCENT AUTO 0 % (0-2); EOSINOPHILS ABSOLUTE AUTO 0.39 K/mm3 (0.00-0.68); EOSINOPHILS PERCENT AUTO 3 % (0-6); Hematocrit 23.2 % (33.0-51.0); Hemoglobin 7.1 g/dL (11.5-16.0); IMMATURE GRAN ABSOLUTE AUTO 0.16 K/mm3 (0.00-0.10); IMMATURE GRAN PERCENT AUTO 1 % (0-1); LYMPHOCYTES ABSOLUTE AUTO 1.08 K/mm3 (0.84-5.20); LYMPHOCYTES PERCENT AUTO 8 % (21-46); MONOCYTES ABSOLUTE AUTO 0.79 K/mm3 (0.16-1.47); MONOCYTES PERCENT AUTO 6 % (4-13); Mean Corpuscular HGB 27.2 pg (26.0-34.0); Mean Corpuscular HGB Conc 30.6 g/dL (31.5-36.5); Mean Corpuscular Volume 89 fL (80-100); Mean Platelet Volume 11.5 fL (9.1-12.4); NEUTROPHILS ABSOLUTE AUTO 11.96 K/mm3 (1.96-9.15); NEUTROPHILS PERCENT AUTO 83 % (41-73); Platelet Count 100 K/mm3 (150-400); RDW Coefficient Variation 15.4 % (11.7-14.2); RDW Standard Deviation 50.5 fL (35.1-46.3); Red Blood Cell Count 2.61 M/mm3 (3.80-5.20); White Blood Cell Count 14.39 K/mm3 (4.00-11.30)
[2020-06-03 04:49] LABS: Anion Gap 6 mmol/L (6-16); Blood Urea Nitrogen 36 mg/dL (8-24); Bun/Creatinine Ratio 43.1 (12.0-20.0); CO2, Blood 23 mmol/L (21-32); Calcium, Blood 7.5 mg/dL (8.5-10.1); Chloride, Blood 108 mmol/L (98-108); Creatinine, Blood 0.84 mg/dL (0.40-1.00); Glomerular Filtration Rate >60 (60-); Glucose, Blood 162 mg/dL (70-99); Magnesium, Blood 1.8 mg/dL (1.6-2.4); Phosphorus, Blood 2.9 mg/dL (2.5-4.9); Potassium, Blood 4.1 mmol/L (3.5-5.5); Sodium, Blood 137 mmol/L (136-145)
--- NOTE | 2020-06-03 06:20 | NUR ---
SBT PTS PROPOFOL CHANGED TO 10 MCG/KG/MIN FOR SEDATION VACATION AND VENT SETTINGS OF PS 5/5, 30% PT TOLERATED WELL. TIDAL VOLUMES OF 400-500, RR 20-21, SPO2 97-98%, AND HR 97-106. PT ABLE TO ANSWER QUESTIONS BY NODDING HEAD YES/NO. STRONG BILATERAL DENTAL PROFESSIONAL STRENGTH. ASKED PT IF AT BASELINE SHE IS ABLE TO MOVE HER LEFT LEG, PT NODS "NO". ASKED PT IF SHE IS AWARE OF WHERE SHE IS, PT NODS "YES." VSS. LEVOPHED CONTINUES AT 5 MCG/MIN. PT SWITCHED BACK TO AC SETTINGS OF 14/400/5/30%, SPO2 > 95%. PROPOFOL SWITCHED BACK TO 35 MCG/KG/MIN.
--- NOTE | 2020-06-03 06:27 | NUR ---
SHIFT SUMMARY PT INTUBATED AND SEDATED. AC 14/400/5/30%, SPO2 > 95%. PROPOFOL AT 35 MCG/KG/MIN AND LEVOPHED AT 5 MCG/MIN. PTS BP LABIAL T/O SHIFT, MAP > 65. NSR/ SINUS TACH, PACS OCCASIONALLY. PT A/O DURING SBT, SEE SBT NOTE. PT ABLE TO FOLLOW COMMANDS, DROWSY T/O SHIFT BUT ABLE TO NOD YES/NO OR BLINK EYES TO COMMUNICATE WHEN IN PN. TEMP TAPIA IN PLACE (100.2), DRAINING TO GRAVITY. BOWEL TONES ACTIVE, VITAL HIGH PROTEIN AT GOAL OF 25 ML/HR, NO RESIDUALS. WOUND VAC CHANGED, APPROXIMATELY 200 MLS OF DARK RED DRAINAGE. SEE PICTURES IN CHART.
--- NOTE | 2020-06-03 08:05 | NUR ---
INITIAL ASSESSMENT PATIENT INTUBATED AND ON SEDATION. PATIENT RESPONDING TO VERBAL STIMULI. PATIENT NOT MOVING ANY EXTREMITIES AT THIS TIME. RECEIVED REPORT THAT PATIENT COMMUNICATED WITH NIGHT STAFF THAT SHE DOES NOT MOVE LEFT LEG AT HOME EITHER. SCLERAL EDEMA NOTED. PATIENT HAS NO SIGNS OF PAIN AT THIS TIME. PATIENT HAS TEMP OF 100.2 DEGREES FAHRENHEIT. PATIENT SATTING 90% AND GREATER ON AC 14, TV 400, PEEP 5 AND 30% FIO2. LUNGS CLEAR THROUGHOUT, SLIGHTLY DIMINISHED IN LOWER LOBES. LARGE AMOUNT OF THICK, PALE YELLOW SECRETIONS BEING SUCTIONED FROM ETT. PATIENT IN SR, HR 80S TO 90S. MURMUR NOTED. BP STABLE ON LEVOPHED. PITTING EDEMA NOTED IN L LEG AND BILAT UPPER EXTREMITIES. EDEMA ALSO NOTED IN SACRAL AREA, POSTERIOR THIGHS AND PANNUS. ABDOMEN MILDLY DISTENDED, SOFT, WITH HYPOACTIVE BS NOTED. PATIENT ON VITAL HIGH PROTEIN AT GOAL RATE OF 25 MLS/ HOUR WITH 30 ML WATER FLUSH Q4H. DATE OF LAST BM UNKNOWN. PATIENT ON SCHEDULED STOOL SOFTENER. TAPIA IN PLACE DRAINING YELLOW COLORED URINE WITH SEDIMENT NOTED. PATIENT RECEIVING SCHEDULED LASIX. PATIENT HAS MULTIPLE LARGE WOUNDS. WOUND VAC IN PLACE TO COCCYX WOUND. SCATTERED BRUISING NOTED T/O. SCAB NOTED TO LEFT EAR AND TIPS OF L TOES. R AKA NOTED. LEVOPHED INFUSING AT 4 MCG/ MINUTE. PROPOFOL AT 35 MCG/ KG/ MINUTE. NS TKO. BED LOW, CALL LIGHT IN REACH. WILL CONTINUE TO MONITOR PATIENT FREQUENTLY THROUGHOUT SHIFT.
--- NOTE | 2020-06-03 09:42 | NUR ---
DR. LORENZO IN PATIENT ROOM. UPDATED ON PATIENT. 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 INFORMED THAT PATIENT FOLLOWING COMMANDS ON AM SEDATION VACATION FOR SEAM PRESS OPERATOR. INFORMED THAT PATIENT HAVING LARGE AMOUNT OF THICK, PALE YELLOW SECRETIONS OUT FROM ETT. INFORMED THAT PATIENT'S HEMOGLOBIN 7.1 AND THAT IT IS DECREASED FROM YESTERDAY. DR. LORENZO CHANGED PATIENT OVER TO SPONTANEOUS PRESSURE SUPPORT. PROPOFOL PLACED ON SB.
--- NOTE | 2020-06-03 12:10 | NUR ---
PATIENT EXTUBATED AT 1058. PATIENT ORIENTED TO SELF AND FOLLOWING SIMPLE COMMANDS. PATIENT BELIEVED SHE WAS IN [place]. PATIENT DID NOT KNOW SHE WAS IN THE HOSPITAL OR WHY. PATIENT DOES SAY SHE HAS PAIN IN HER BOTTOM AND WOUNDS. PATIENT HAS CORE TEMP OF 101.1 DEGREES FAHRENHEIT. PATIENT SATTING 90% AND GREATER ON [address] PATIENT IN [address] WITH PACS. HR 120S TO 130S. BP STABLE WITH LEVOPHED OFF. SBP 90S TO LOW 100S. OG REMOVED WHEN PATIENT EXTUBATED. BLOOD SUGAR OF 163; COVERAGE GIVEN. CALL LIGHT WITHIN REACH. BED LOW.
--- NOTE | 2020-06-03 13:46 | NUR ---
DR. LORENZO INFORMED OF POSITIVE URINE CULTURE. DOCTOR ALSO INFORMED THAT PATIENT'S HR REMAINS IN 120S TO 130S. STATES HE IS OKAY WITH THE HR.
--- NOTE | 2020-06-03 16:12 | NUR ---
PATIENT MORE ORIENTED THIS AFTERNOON. PATIENT ORIENTED TO SELF, TOWN, HOSPITAL, WHY SHE IS HERE, FAMILY, FOLLOWING DIRECTIONS. PATIENT DISORIENTED TO YEAR AND MONTH. PATIENT HAS TEMP OF 99.1 DEGREES FAHRENHEIT. PATIENT IS CONTINUING TO BE GIVEN PRN FENTANYL PER REQUEST FOR COMPLAINT OF PAIN IN BACKSIDE FROM WOUNDS. PATIENT HAS BAD SHORT TERM MEMORY PER HER LONG TIME PARTNER, PREET. PATIENT SATTING 90% AND GREATER ON 2 L NC. HR IN THE 1-TEENS. BP STABLE WITH LEVOPHED ON SB AT THIS TIME.
--- NOTE | 2020-06-03 18:05 | NUR ---
SHIFT SUMMARY PATIENT EXTUBATED THIS SHIFT. PATIENT MORE OREINTED SHIFT HAS PROGRESSED. PATIENT STILL REMAINS DISORIENTED TO MONTH AND YEAR. PATIENT HAS LIMITED SHORT TERM MEMORY. PATIENT HAD TMAX OF 101.1 DEGREES FAHRENHEIT. PATIENT HAS BEEN GIVEN PRN FENTANYL FOR COMPLAINTS OF PAIN IN BACKSIDE/ WOUNDS. PATIENT HAS LIMITED MOVEMENT IN BUES. PATIENT UNABLE TO MOVE BLES. LUNGS REMAINED CLEAR IN UPPER LOBES AND DIMINISHED IN LOWER LOBES. PATIENT SATTING 90% AND GREATER ON 2 L NC. PATIENT HAS BEEN SR TO ST WITH PACS THIS SHIFT. HR RANGING FROM 80S TO 130S. SBP 80S TO 160S. LEVOPHED RANGED FROM SB TO 4 MCG/ MINUTE. NO BM THIS SHIFT. OG AND TF DC'D WHEN PATIENT EXTUBATED. PATIENT TO HAVE SWALLOW EVAL TOMORROW. TAPIA DRAINED 1770 MLS OF YELLOW COLORED URINE WITH SEDIMENT NOTED. NO CHANGES TO SKIN. PATIENT REPOSITIONED Q2H DURING SHIFT. MICAFUNGIN STARTED TODAY FOR POSITIVE URINE CULTURE. PT WORKED WITH PATIENT. PATIENT APPEARS COMFORTABLE AT THIS TIME. BED LOW, CALL LIGHT IN REACH. WILL BE GIVING REPORT TO ONCOMING FARMWORKER BULBS NURSE SHORTLY.
--- NOTE | 2020-06-03 19:30 | NUR ---
ASSUMED CARE OF PT, REPORT RECEIVED. PT IS RESTING QUIETLY RECLINING IN BED AND WATCHING TV, LEVOPHED GTT VERIFIED AT 1 MCG/MIN AT THIS TIME, PRESSURES MAINTAINING MAP, WILL MONITOR AND TITRATE TO MAINTAIN MAP. PT STATES THAT HER LEFT SIDE HURTS WITH ASSESSMENT HOWEVER C/O INCREASED PAIN WHEN PILLOWS REMOVED FROM UNDER RIGHT HIP AND REQUESTS PILLOW BE REPLACED, PT IS SHIFTED IN BED AND PILLOWS PLACED FOR COMFORT, WILL PROVIDE PAIN MEDICATION PER ORDERS AND MONITOR. SATS MAINTAINING WITH OXYGEN VIA NASAL CANNULA AT 2 L/MIN WHICH IS PT'S HOME FLOW RATE, LUNGS ARE CLEAR BILAT UPPER, DIM MID TO BASES, PT DENIES SOB/DYSPNEA AT REST, RATE NOTED HIGH TEENS AT THIS TIME. HRR, OCCASIONAL PACS ARE NOTED, RATE 100-110S AT THIS TIME, SEE SHIFT ASSESSMENT.
[2020-06-04 04:01] LABS: BASOPHILS ABSOLUTE AUTO 0.02 K/mm3 (0.00-0.23); BASOPHILS PERCENT AUTO 0 % (0-2); EOSINOPHILS ABSOLUTE AUTO 0.17 K/mm3 (0.00-0.68); EOSINOPHILS PERCENT AUTO 1 % (0-6); Hematocrit 21.5 % (33.0-51.0); Hemoglobin 6.7 g/dL (11.5-16.0); IMMATURE GRAN ABSOLUTE AUTO 0.09 K/mm3 (0.00-0.10); IMMATURE GRAN PERCENT AUTO 1 % (0-1); LYMPHOCYTES ABSOLUTE AUTO 0.84 K/mm3 (0.84-5.20); LYMPHOCYTES PERCENT AUTO 7 % (21-46); MONOCYTES ABSOLUTE AUTO 0.56 K/mm3 (0.16-1.47); MONOCYTES PERCENT AUTO 4 % (4-13); Mean Corpuscular HGB 27.9 pg (26.0-34.0); Mean Corpuscular HGB Conc 31.2 g/dL (31.5-36.5); Mean Corpuscular Volume 90 fL (80-100); Mean Platelet Volume 11.8 fL (9.1-12.4); NEUTROPHILS ABSOLUTE AUTO 10.94 K/mm3 (1.96-9.15); NEUTROPHILS PERCENT AUTO 87 % (41-73); Platelet Count 84 K/mm3 (150-400); RDW Coefficient Variation 15.5 % (11.7-14.2); RDW Standard Deviation 50.8 fL (35.1-46.3); White Blood Cell Count 12.62 K/mm3 (4.00-11.30)
[2020-06-04 04:13] LABS: Anion Gap 7 mmol/L (6-16); Blood Urea Nitrogen 31 mg/dL (8-24); Bun/Creatinine Ratio 38.1 (12.0-20.0); CO2, Blood 24 mmol/L (21-32); Calcium, Blood 7.4 mg/dL (8.5-10.1); Chloride, Blood 108 mmol/L (98-108); Creatinine, Blood 0.81 mg/dL (0.40-1.00); Glomerular Filtration Rate >60 (60-); Glucose, Blood 158 mg/dL (70-99); Magnesium, Blood 1.7 mg/dL (1.6-2.4); Phosphorus, Blood 3.2 mg/dL (2.5-4.9); Potassium, Blood 4.1 mmol/L (3.5-5.5); Sodium, Blood 139 mmol/L (136-145)
--- NOTE | 2020-06-04 05:43 | NUR ---
PT FREQUENTLY AWAKE AND C/O PAIN THROUGHOUT SHIFT, FENTANYL 50 MCG IV ADMINISTERED X 6 THIS SHIFT, PT TOLERATED WELL, REPORTS POST PAIN LEVEL THIS AM "IT'S ALL RIGHT" AND RATES 7/10, LOCATION OF PAIN HAS CONSISTENTLY BEEN TO BUTTOCKS WOUNDS. SATS HAVE MAINTAINED MID 90S WITH OXYGEN VIA NASAL CANNULA AT HOME FLOW RATE OF 2 L/MIN, LUNGS REMAIN CLEAR WITH DIM BASES, RESP RATE TEENS THROUGHOUT NOC. LEVOPHED TITRATED TO STANDBY AT 1935 THIS SHIFT, PRESSURES HAVE MAINTAINED STABLE. PT CONTINUES TO BE ORIENTED TO MONTH/YEAR, LOCATION AND CITY/STATE, BEGINNING TO USE CALL LIGHT TO MAKE NEEDS KNOWN THIS AM. DID C/O NAUSEA AND TOTAL OF ZOFRAN 8 MG ADMINISTERED WITH GOOD RELIEF.
--- NOTE | 2020-06-04 08:00 | NUR ---
INITIAL ASSESSMENT PATIENT ALERT AND ORIENTED X 4. PATIENT IS FORGETFUL AND CALLS OUT QUITE OFTEN FOR HELP. PATIENT HAS POOR SHORT TERM MEMORY PER HER PARTNER. PATIENT IS ABLE TO MOVE BOTH ARMS AND R STUMP. PATIENT UNABLE TO MOVE LEFT LEG. SCLERAL EDEMA NOTED. PATIENT COMPLAINS OF CHRONIC PAIN IN BUTTOCKS/ WOUNDS. PATIENT IS BEING REPOSITIONED AND GIVEN PRN FENTANYL ORDERED. PATIENT AFEBRILE. PATIENT SATTING 90% AND GREATER ON 2 L NC. PATIENT STATES SHE ONLY WEARS NC AT NIGHT HOME, AND IS RA DURING DAY. LUNGS CLEAR. LOWER LOBES DIMINISHED. NO COUGH NOTED. PATIENT IN SR TO ST WITH OCCASIONAL PACS. HR 90S TO LOW 100S. SBP LOW 100S TO 120S. 1+ EDEMA IN BUES, TRACE EDEMA IN LLE. DEPENDENT EDEMA IN POSTERIOR THIGHS, SACRAL AREA, PANNUS. ABDOMEN MILDLY DISTENDED, SOFT, WITH HYPOACTIVE BS NOTED. DATE OF LAST BM UNKNOWN. PATIENT NPO. TAPIA DRAINING YELLOW COLORED URINE WITH SEDIMENT NOTED. PATIENT RECEIVING SCHEDULED LASIX. PATIENT HAS WOUNDS TO ISCHIAL TUBEROSITIES, COCCYX, BILAT HIPS. PATIENT HAS SCATTERED SCABS AND BRUISES. R AKA. NS TKO. PATIENT RECEIVING 1 UNIT PRBCS FOR HEMOGLOBIN OF 6.7 THIS AM. BED LOW, CALL LIGHT IN REACH. WILL CONTINUE TO MONITOR PATIENT FREQUENTLY THROUGHOUT SHIFT.
--- NOTE | 2020-06-04 10:01 | NUR ---
DR. LORENZO IN TO SEE PATIENT. UPDATED ON PATIENT STATUS. INFORMED THAT PATIENT STATED SHE WEARS 2 L NC AT HOME AT NIGHT ONLY AND IS RA DURING DAY. INFORMED THAT PATIENT FAILED AM SWALLOW EVAL. INFORMED THAT SPEECH THERAPIST NOTIFIED THAT INSIDE OF PATIENT'S CHEEKS ARE "PUFFY". INFORMED THAT HEMOGLOBIN 6.7 THIS AM AND THAT PATIENT RECEIVED 1 UNIT PRBCS. INFORMED THAT PATIENT HAS HAD SEVERAL COMPLAINTS OF PAIN THUS FAR THIS AM. INFORMED THAT PATIENT TAKES PERCOCET AT HOME. ORDERS OBTAINED.
--- NOTE | 2020-06-04 11:21 | NUR ---
DOBHOFF PLACED. XR CALLED AND CONFIRMED PLACEMENT IS GOOD AND IS READY TO USE.
--- NOTE | 2020-06-04 12:00 | NUR ---
PATIENT REMAINS SATTING 90% AND GREATER ON 2 L NC. HR IN THE LOW 100S. SBP LOW 100S TO 1-TEENS. BLOOD SUGAR OF 158; COVERAGE GIVEN.
[2020-06-04 12:01] LABS: Vancomycin, Trough 26.6 ug/mL (5.0-10.0)
--- NOTE | 2020-06-04 16:00 | NUR ---
Review of pt with nursing, Suggest saturday notify Doctor nura to help her with a plan of care.
--- NOTE | 2020-06-04 16:00 | NUR ---
PATIENT SATTING 90% AND GREATER ON RA. HR IN THE LOW 100S TO 1-TEENS. SBP IN THE LOW 100S. TF INFUSING AT 25 MLS/ HOUR. ALL WOUND CARE PERFORMED. ALL DRESSINGS, INCLUDING WOUND VAC CHANGED. WOUNDS CLEANSED.
--- NOTE | 2020-06-04 17:34 | NUR ---
SHIFT SUMMARY PATIENT REMAINED ALERT AND ORIENTED. PATIENT CONTINUED TO CALL OUT FOR PAIN MEDICATIONS QUITE OFTEN. HOME DOSE OF PERCOCET ADDED TO PAIN REGIMINE. PAIN DID SEEM TO HAVE BETTER PAIN CONTROL AFTER PERCOCET ADDED. PATIENT REMAINED AFEBRILE. PATIENT REMAINED SATTING 90% AND GREATER ON RA TO 2 L NC. PATIENT REMAINED IN SR TO ST WITH OCCASIONAL PACS. HR 80S TO LOW 100S. SBP 90S TO 140S. DOBHOFF PLACED THIS SHIFT AFTER PATIENT FAILED AM SWALLOW EVAL. PIVOT 1.5 IMMUNE STARTED AT 25 MLS PER HOUR WITH 30 ML WATER FLUSH Q4H. TF TO BE INCREASED TO GOAL RATE OF 35 MLS/ HOUR AT 2200. BLOOD SUGARS 158-160; COVERAGE GIVEN EACH CHECK. NO BM THIS SHIFT. TAPIA DRAINED 900 MLS OF YELLOW COLORED URINE WITH SEDIMENT NOTED. ALL WOUNDS CLEANSED AND NEW DRESSINGS APPLIED. WOUND VAC FOAM AND DRESSING REPLACED. NS TKO. PATIENT HAD 1 UNIT OF PRBCS THIS AM FOR HEMOGLOBIN OF 6.7. BED LOW, CALL LIGHT IN REACH. REPORT HAS BEEN GIVEN TO ASSUMING PCU NURSE.
--- NOTE | 2020-06-04 17:50 | NUR ---
PATIENT TRANSFERRED TO PCU ROOM 06. PATIENT'S SIGNIFICANT OTHER, RUSS OVIEDO.
--- NOTE | 2020-06-04 18:27 | NUR ---
PATIENT ARRIVED FROM ICU VIA BED. NO SIGNS OF ACUTE DISTRESS, ON ROOM AIR, VSS. WOUND VAC IN PLACE. PATIENT CONVERSING WITH NURSING STAFF. TRAM.
--- NOTE | 2020-06-04 22:40 | NUR ---
CALLED DR. PIEDRA. NOTIFIED HER PATIENT'S CBGS HAVE RANGED 138-168 TODAY. SHE HAS SEMGLEE 30 UNITS SC BEDTIME ORDERED BUT SHE DID NOT RECEIVE SEMGLEE LAST NIGHT. SHE IS SCHEDULED TO RECEIVE SEMGLEE 30 UNITS TONIGHT. SHE IS ON TUBE FEEDING. DR. PIEDRA ORDERED TO DISCONTINUE SEMGLEE 30 UNITS AND ORDERED SEMGLEE 10 UNITS SC BEDTIME, FIRST DOSE NOW.
--- NOTE | 2020-06-05 01:10 | NUR ---
TUBE FEEDING INCREASED TO 35 MLS/HR AT THIS TIME. INITIAL GOAL WAS TO INCREASE IT AT 2200, HOWEVER TUBE FEEDING WAS OFF FOR APPROXIMATELY 2 HOURS AFTER TRANSFER TO PCU. PATIENT DENIES NAUSEA AND ABDOMINAL PAIN. CALL LIGHT IN REACH.
[2020-06-05 05:29] LABS: BASOPHILS ABSOLUTE AUTO 0.01 K/mm3 (0.00-0.23); BASOPHILS PERCENT AUTO 0 % (0-2); EOSINOPHILS ABSOLUTE AUTO 0.16 K/mm3 (0.00-0.68); EOSINOPHILS PERCENT AUTO 1 % (0-6); Hematocrit 25.5 % (33.0-51.0); Hemoglobin 8.1 g/dL (11.5-16.0); IMMATURE GRAN ABSOLUTE AUTO 0.11 K/mm3 (0.00-0.10); IMMATURE GRAN PERCENT AUTO 1 % (0-1); LYMPHOCYTES ABSOLUTE AUTO 0.83 K/mm3 (0.84-5.20); LYMPHOCYTES PERCENT AUTO 7 % (21-46); MONOCYTES ABSOLUTE AUTO 0.61 K/mm3 (0.16-1.47); MONOCYTES PERCENT AUTO 5 % (4-13); Mean Corpuscular HGB 27.6 pg (26.0-34.0); Mean Corpuscular HGB Conc 31.8 g/dL (31.5-36.5); Mean Corpuscular Volume 87 fL (80-100); Mean Platelet Volume 11.2 fL (9.1-12.4); NEUTROPHILS ABSOLUTE AUTO 9.77 K/mm3 (1.96-9.15); NEUTROPHILS PERCENT AUTO 85 % (41-73); Platelet Count 93 K/mm3 (150-400); RDW Coefficient Variation 15.5 % (11.7-14.2); RDW Standard Deviation 48.8 fL (35.1-46.3); Red Blood Cell Count 2.93 M/mm3 (3.80-5.20); White Blood Cell Count 11.49 K/mm3 (4.00-11.30)
[2020-06-05 05:56] LABS: Anion Gap 6 mmol/L (6-16); Blood Urea Nitrogen 35 mg/dL (8-24); Bun/Creatinine Ratio 40.4 (12.0-20.0); CO2, Blood 25 mmol/L (21-32); Calcium, Blood 7.7 mg/dL (8.5-10.1); Chloride, Blood 108 mmol/L (98-108); Creatinine, Blood 0.87 mg/dL (0.40-1.00); Glomerular Filtration Rate >60 (60-); Glucose, Blood 227 mg/dL (70-99); Magnesium, Blood 1.8 mg/dL (1.6-2.4); Phosphorus, Blood 3.1 mg/dL (2.5-4.9); Potassium, Blood 3.9 mmol/L (3.5-5.5); Sodium, Blood 139 mmol/L (136-145)
--- NOTE | 2020-06-05 07:15 | NUR ---
AT APPROX 0630, I WAS IN THE ROOM TO ADMINISTER PATIENT'S MEDICATIONS. I HAD A CALL OUT TO DR. SANTILLAN AT 0625 TO NOTIFY HIM THAT PATIENT ONLY HAD 300 MLS URINE OUTPUT THIS SHIFT, WAITING FOR RETURN CALL. ADMINISTERED PERCOCET VIA TUBE, VERIFIED PLACEMENT VIA AUSCULTATION. ASSISTED HOOK TENDER TO PLACE BACKBOARD BEHIND PATIENT TO GET CHEST XRAY. REPOSITIONED PATIENT, PLACED PILLOWS BEHIND BOTH SIDES TO FLOAT BUTTOCKS AND HEEL. IT BECAME DIFFICULT TO GET AN ACCURATE SPO2 READING. PATIENT C/O SHORTNESS OF BREATH. LISTENED TO LUNGS, UPPER LOBES SOUNDED COARSE AND WHEEZY. SPO2 AT 85% ON 2L O2 VIA NC. HEART RATE UP TO THE 120'S-130'S. DR. SANTILLAN RETURNED CALL. NOTIFIED HIM OF PATIENT'S URINE OUTPUT AND LUNG SOUNDS. HE ORDERED LASIX 40 MG IV X1 NOW. HE ORIGINALLY ORDERED A CHEST XRAY BUT SAID IT WAS OK TO NOT GET ONE PATIENT JUST HAD ONE. HEART RATE UP TO THE 150'S. SPO2 CONTINUED IN MID 80'S. INCREASED O2 TO 6L VIA NC AND PLACED IT IN PATIENT'S MOUTH. ADMINISTERED LASIX PER EMAR. IMMIGRATION GUARD AT BEDSIDE. SPO2 UP TO LOW 90'S ON 6L O2 VIA NC. BP 150/94. HEART RATE CONTINUES IN THE 140'S. SCOOTED PATIENT UP IN THE BED. REPORT GIVEN TO ONCOMING RN.
--- NOTE | 2020-06-05 07:29 | NUR ---
SHIFT SUMMARY: PATIENT A/OX3 BUT IS FORGETFUL AT TIMES. PERCOCET AND FENTANYL GIVEN FOR PAIN IN BUTTOCKS. PLACED ON 2L O2 VIA NC FOR SLEEP (PATIENT WEARS 2L O2 VIA NC FOR SLEEP AT HOME). SUDDENLY REQUIRED INCREASED OXYGEN NEEDS AT END OF SHIFT, SEE PREVIOUS NOTE, MD NOTIFIED AND LASIX IV ADMINISTERED. HAS BEEN SINUS RHYTHM - SINUS TACH IN THE 90'S-1TEENS FOR MOST OF THIS SHIFT, EXCEPT FOR DIFFICULTY BREATHING EPISODE, SEE PREVIOUS NOTE. TUBE FEED ADVANCED TO GOAL FEEDING RATE, DOBHOFF PLACEMENT VERIFIED VIA AIR AUSCULTATION. ORAL CARE PROVIDED Q4H WITH SUCTION SWAB. MIKAL CARE PROVIDED. TAPIA ONLY DRAINED 300 MLS URINE THIS SHIFT, MD AWARE. WOUND VAC TO BUTTOCKS IN PLACE WITH NO LEAKS. DRESSINGS TO MULTIPLE WOUNDS REMAIN C/D/I. REPOSITIONED Q2H. REPORT GIVEN TO ONCOMING RN.
--- NOTE | 2020-06-05 14:31 | NUR ---
brief supportive visita nd review with nursing. Will review plan on saturday with physicians.
--- NOTE | 2020-06-05 15:35 | NUR ---
PULLED NG TUBE: PT PULLED OUT THE DOBHOFF AT THIS TIME. CALLED DR MAST AND NOTIFIED. WILL WAIT TO SEE IF PT NEEDS DOBHOFF TOMORROW AFTER RECEIVING ANOTHER SPEECH EVALUATION.
[2020-06-05 21:17] LABS: Vancomycin, Trough 26.5 ug/mL (5.0-10.0)
[2020-06-06 04:17] LABS: BASOPHILS ABSOLUTE AUTO 0.06 K/mm3 (0.00-0.23); BASOPHILS PERCENT AUTO 0 % (0-2); EOSINOPHILS ABSOLUTE AUTO 0.15 K/mm3 (0.00-0.68); EOSINOPHILS PERCENT AUTO 1 % (0-6); Hematocrit 29.6 % (33.0-51.0); Hemoglobin 9.3 g/dL (11.5-16.0); IMMATURE GRAN ABSOLUTE AUTO 0.38 K/mm3 (0.00-0.10); IMMATURE GRAN PERCENT AUTO 1 % (0-1); LYMPHOCYTES ABSOLUTE AUTO 2.83 K/mm3 (0.84-5.20); LYMPHOCYTES PERCENT AUTO 10 % (21-46); MONOCYTES ABSOLUTE AUTO 1.64 K/mm3 (0.16-1.47); MONOCYTES PERCENT AUTO 6 % (4-13); Mean Corpuscular HGB 28.3 pg (26.0-34.0); Mean Corpuscular HGB Conc 31.4 g/dL (31.5-36.5); Mean Corpuscular Volume 90 fL (80-100); Mean Platelet Volume 12.2 fL (9.1-12.4); NEUTROPHILS ABSOLUTE AUTO 22.33 K/mm3 (1.96-9.15); NEUTROPHILS PERCENT AUTO 82 % (41-73); Platelet Count 105 K/mm3 (150-400); RDW Coefficient Variation 15.6 % (11.7-14.2); RDW Standard Deviation 50.6 fL (35.1-46.3); Red Blood Cell Count 3.29 M/mm3 (3.80-5.20); White Blood Cell Count 27.39 K/mm3 (4.00-11.30)
[2020-06-06 04:30] LABS: Anion Gap 5 mmol/L (6-16); Blood Urea Nitrogen 46 mg/dL (8-24); Bun/Creatinine Ratio 53.6 (12.0-20.0); CO2, Blood 26 mmol/L (21-32); Calcium, Blood 7.9 mg/dL (8.5-10.1); Chloride, Blood 110 mmol/L (98-108); Creatinine, Blood 0.86 mg/dL (0.40-1.00); Glomerular Filtration Rate >60 (60-); Glucose, Blood 277 mg/dL (70-99); Potassium, Blood 4.5 mmol/L (3.5-5.5); Sodium, Blood 141 mmol/L (136-145)
--- NOTE | 2020-06-06 05:32 | NUR ---
NEURO CHANGE / TRANSFER TO ICU 0250: PT NOTED TO BE HYPERTENSIVE. AXO. MAKING NEEDS KNOWN AT BASELINE MENTATION. BP 172/64. LOPRESSOR 5MG IV PUSH ADMINISTERED. 0303: BP NOW 146/56. PT C/O OF FEELING DIFFICULTY BREATHING. ALBA PETERSEN/BERNA OSCAR RN IN ROOM. PT AT 3-4L NC, SPO2 90S. SATURATIONS DROP TO LOW 80'S. PT'S RR INCREASES TO 28. PT PLACED ON OXIMIZER 9L, SPO2 >92% 0324: RAPID NEURO CHANGE NOTED. PT BECAME NONRESPONSIVE. NONVERBAL. L FACIAL DROOP NOTED. PUPILS SHIFTING SIDE TO SIDE WITH NO REAL INTENTION NOTED, PUPILS REACTIVE. PT NOT WITHDRAWING TO PAIN. BLOOD GLUCOSE TAKEN, >200. LUNG SOUNDS NOTED TO BE MUCH MORE COARSE THAN BEGINNING OF SHIFT. SUSANA RICHARDS BRUSH MAKER MACHINE TO ROOM TO SEE PT. NICKOLAS CALVILLO, ICU BRUSH MAKER MACHINE TO ROOM WELL. ALBA PETERSEN ATTEMPTING TO CALL DR ANDERSON. 0401: ABLE TO GET DR ANDERSON ON PHONE AFTER A FEW ATTEMPTS. UPDATED ON PT CONDITION. ORDERS RECEIVED FOR STAT HEAD CT WO CONTRAST. THIS RN CALLED SPREADER OPERATOR AUTOMATIC, TECH IN ICU COMPLETING ANOTHER TEST. STATED TO MEET TECH IN IMAGING BAY [address] 0440: DR ANDERSON TO ROOM TO ASSESS PT WITHIN A FEW MINUTES OF PT RETURNING FROM CT. ASKS TO SPEAK TO FAMILY REGARDING CODE STATUS AND CONDITION WELL POSSIBLE NEED FOR TPA. 0455: CHART SEARCHED FOR FAMILY, POA, ETC. NEXT OF KIN LISTED PREET PATTERSON [phone]. PREET ASKED BY THIS RN IF SHE KNEW WHO PT HAD ELECTED TO MAKE MEDICAL DECISIONS FOR HER IF ANY. 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 DR ANDERSON ON PHONE WITH YOLA. UPDATED ON CONDITION, UPDATED THAT PT MAY BE EXPERIENCING AN ACUTE STROKE. DISCUSSED CODE STATUS. DISCUSSED PRO'S/CONS OF TPA INCLUDING VERY REAL RISK OF DUE TO HEMMORRHAGE FROM TPA. WITH ALL THIS EDUCATION, PREET STATES PT WOULD WANT TPA IF SHE COULD SPEAK FOR HERSELF RIGHT NOW. ASKED IF YOLA WAS SURE AND YOLA REPEATED THAT THE PT WOULD WANT THIS INTERVENTION AND THAT SHE WOULD WANT TO REMAIN A FULL CODE. DR ANDERSON ASKS PHARMACY TO BEGIN PREPARING TPA. ORDERS RECEIVED TO TRANSFER TO ICU. 0510: REPORT GIVEN TO NICKOLAS CALVILLO. PT TRANSFERRED TO ICU. ALL BELONGINGS BROUGHT WITH PT. PT SLID OVER INTO BED. NICKOLAS CALVILLO ASSUMED CARE AT THAT TIME.
--- NOTE | 2020-06-06 06:45 | NUR ---
PT TO ICU-5 FROM PCU AT 0500. PT WAS OBSERVED BY ME IN PCU-6 EARLIER. PT WAS UNRESPONSIVE, W L FACIAL DROOP, NOT RESPONDING TO COMMANDS, NO MOVEMENT OF EXT SPONT OR TO STIMULI. PT TO ICU-[address] SANTILLAN ALSO TO SEE PT IN ICU. ORDERS REC'D FOR ASA SUPPOS & CTA HEAD & NECK. SUPPOS GIVEN, AND PT TO IMAGING FOR CTA W MONITOR & O2. PT BACK TO ROOM WO INCIDENT. AT THIS TIME, PT IS ALERT, ABLE TO MAKE EYE CONTACT, MOVING BOTH ARMS- ABLE TO RAISE ARMS AND POINT FINGERS BOTH HANDS. NODS ERIN AND NO, AND SPEECH IS MOSTLY CLEAR (?BASELINE), STATES SHE IS IN HOSP. PT IS ON 3LNC, SATS UPPER 90'S, PT WAS GIVEN ASA SUPPOSITORY PRIOR TO GOING TO CT. PT HAS EXTENSIVE WOUNDS TO BUTTOCKS, WHICH HAVE SANTIAGO DRSGS WELL ADHEARED W GOOD SXN (Y-SITE) . POWERGLIDE IV TO VERA FLUSHES EASILY AND W BRISK BLOOD RETURN. CONT TO MONITOR PT STATUS. VSS, MONITOR SHOWS ST.
--- NOTE | 2020-06-06 09:00 | NUR ---
CARE ASSUMED ASSESSMENT COMPLETED, PT WAKES EASILY TO VOICE, OPENS EYES, FOLLOWS DIRECTIONS. PT CONFUSED, AWARE SHE IS AT HOSPITAL, DOES NOT REMEMBER EVENTS FROM THIS MORNING. NO FACIAL DROOP OR ONE SIDED WEAKNESS NOTED AT THIS TIME. O2 2L/NC, LS CLEAR, DIM. HR SINUS, IRREGULAR AT TIMES. BP STABLE, ALLOWING FOR PERMISSIVE HTN PER ORDERS. WOUND VAC TO R AND L BUTTOCKS INTACT, SUCTION AT 120MM/HG, MEPILEX TO BILAT HIPS AND L MID LATERAL BACK CDI. R AKA WELL HEALED. PROTECTIVE HEEL DRESSING TO LLE, PEDAL PULSES FAINT BY DOPPLER. DR. MAST IN TO ASSESS PATIENT, PLAN FOR ID CONSULT FOR ENDOCARDITIS. PT REPOSITIONED, SMALL BM, ATTENDS PLACED.
--- NOTE | 2020-06-06 13:46 | NUR ---
Spoke with Dr Jarvis ochoa today and discussed case. Conversation regarding goals of care with Pt's decision maker Jo-Ann would be benficial. Having Jo-Ann come visit with Pt and having team meating with her may also be benficial. During Pt's last hospital stay, Pt was adamant for friend Jo-Ann to be decision maker and no one else. Called and spoke with Jo-Ann. Jo-Ann agreeable with meeting and time arranged. Pt resting in bed upon arrival. Pt with her eyes open staring at Jo-Ann and does not appear to be conversing. Pt appears comfortable with no S/S of distress at this time. Escorted Jo-Ann to ED Palliative Care office, joint visit with Dr Conley, Dr Chan and this RN. Engaged in therapeutic conversation and assessed Jo-Ann's understanding of Pt's condition. Jo-Ann verbalizes understanding of Pt's condition with no options for surgical interventions and no curritive treatments for Pt's cancer. Discussed the importance of considering Pt's goals and values as the likely rea of frequent hospital stays increase. Discussed the option for hospice and educated on hospice philosophy with V/U made by Pt. Offered emotional support as Jo-Ann tearful at times. Jo-Ann reports Pt would want to be home and elects hospice. Jo-Ann reports needing a few days to set up home. Pt also receives in home caregivers through the state and Jo-Ann will request Pt to be re-assessed for increased hours for caregiver support. Discussed Pt's current code status. Educated on life sustaining treatment including risk factors and implications. Jo-Ann elects no chest compressions, no intubation, and would like medications only given. Provided list of hospice agencies to choose from. Jo-Ann expresses appreciation of conversation and reports no other concerns at this time. Spoke with Dr Conley who will change Pt's code status. Ordered hospice referral and spoke with Garrett Infante regarding plan. Spoke with Bedside RIZWAN Person and discussed case. Palliative Care will remain available for supportive visits for Pt and family.
--- NOTE | 2020-06-06 16:03 | NUR ---
UPDATE SPEECH THERAPY IN TO ASSESS, PT FAILED SWALLOW EVAL, REMAINS NPO. PT'S S/O IN TO VISIT THIS AFTERNOON, MEETING HELD WITH S/O, PALLIATIVE CARE, AND DOCTOR. PT NOW DNR, PLAN TO CONTINUE MEDICATION TREATMENTS AND EVENTUALLY DC TO HOME WITH HOSPICE CARE. ID CONSULT CANCELLED AND FEEDING TUBE NOT TO BE REPLACED PER DR. MAST. REPOSITIONING Q2H, ORAL CARE Q4H, ATTENDS CHANGES PRN. WOUND VAC CONTINUES TO FUNCTION, PT MEDICATED FOR HTN AT THIS TIME, SBP NOW 160. PT C/O SOB, SPO2 90%, O2 INCREASED TO 3L/NC, RT AT BEDSIDE FOR NEB TREATMENT.
--- NOTE | 2020-06-06 19:04 | NUR ---
END OF SHIFT PT REPORTED NO RELIEF OF SOB AFTER NEB TX, SPO2 REMAINED >90% ON 3L. PT REPOSITIONED ONTO BACK WITH HEAD ELEVATED, THEN CALMED AND WENT TO SLEEP, SPO2 >95%. MEDICATED X1 THIS SHIFT FOR SBP 201, HR 116 WITH GOOD RESULTS, SBP 140-160, HR 80'S. DENIED PAIN T/O SHIFT. PT REMAINS CONFUSED TO SITUATION, IS CALM AND PLEASANT, FOLLOWS COMMANDS. LS REMAIN DIM AND COARSE, O2 3L/NC, VSS. PT HAD 3 SMALL BM'S TODAY, TAPIA REMAINS PATENT. WOUND VAC IN PLACE, DRESSINGS INTACT. DRESSINGS TO BACK AND HIPS CDI. NO EPISODES OF DECREASED LOC THIS SHIFT, NO FACIAL DROOP OR ONE SIDED WEAKNES NOTED. WHEN UPDATE GIVEN TO S/O TODAY, S/O REPORTS THAT PT HAS HAD THESE TYPE OF EPISODES AT HOME BEFORE AND THAT THEY HAVE RESPOLVED WITHOUT TREATMENT. ATTEMPTED TO CALL HOSPITALIST FOR STATUS CHANGE, NO ANSWER. REPORT TO ONCOMING SHIFT.
[2020-06-06 22:16] LABS: Vancomycin, Trough 20.2 ug/mL (5.0-10.0)
--- NOTE | 2020-06-06 22:42 | NUR ---
ASSUMPTION OF CARE PT AWAKE IN BED, ORIENTED TO SELF, LOCATION, MONTH/YEAR AND FOLLOWING DIRECTIONS, PERRLA AND EQUAL STRENGTH TO BILAT HANDS/ARMS. PT FREQUENTLY YELLS OUT FOR HELP, BUT HAS DIFFICULTY COMMUNICATING WHAT SHE NEEDS HELP WITH. PT REPORTS 9/10 PAIN, PT ASKS WHY SHE IS IN PAIN, EXPLAINED BUTTOCK WOUNDS TO PT. PT ON 2L PER NC TO MAINTAIN 02 SATURATIONS>90%, PT WEARS 2L PER NC AT BASELINE. MONITOR SHOWS SINUS RHYTHM WITH HR 90'S-110, MILD HYPERTENSION NOTED. PT IS AFEBRILE. SIGNIFICANT WOUNDS T/O, SEE PHOTOS ON FILE AND SHIFT ASSESSMENT, WOUND VAC IN PLACE TO BUTTOCK/HIP WOUNDS. TAPIA IN PLACE DRAINING TO GRAVITY. PT VERY WEAK, R AKA, MOVES ALL EXTREMEITIES. CALL PLACED TO DR PRIEST, UPDATED ON PTS STATUS, NEW ORDER FOR CHANGE TO MEDICAL STATUS WITH TELEMETRY.
--- NOTE | 2020-06-07 00:30 | NUR ---
REPORT CALLED AND PT TRANSFERRED TO ROOM 358 @ 1082
--- NOTE | 2020-06-07 02:03 | NUR ---
06/07/20 0035 RECEIVED FROM ICU VIA BED. PT PALE AND COOL TO TOUCH. OPENS EYES TO QUESTIOS AND NODS "YES/NO" WITH SIMPLE QUESTIONS. NPO. O2 AT 3LPM VIA N/C. DENIES PAIM. CALL SHERMAN WITHIN REACH AND BED ALARM ON. HEART WINDOW UNIT AIR CONDITIONING MECHANIC,HEATHER, STATES HR IS "ST AT 110." WOUND VAC INTACT TO COCCYX. TAPIA CATH INTACT.
[2020-06-07 05:58] LABS: BASOPHILS ABSOLUTE AUTO 0.02 K/mm3 (0.00-0.23); BASOPHILS PERCENT AUTO 0 % (0-2); EOSINOPHILS ABSOLUTE AUTO 0.02 K/mm3 (0.00-0.68); EOSINOPHILS PERCENT AUTO 0 % (0-6); Hematocrit 26.2 % (33.0-51.0); Hemoglobin 8.3 g/dL (11.5-16.0); IMMATURE GRAN ABSOLUTE AUTO 0.12 K/mm3 (0.00-0.10); IMMATURE GRAN PERCENT AUTO 1 % (0-1); LYMPHOCYTES ABSOLUTE AUTO 1.05 K/mm3 (0.84-5.20); LYMPHOCYTES PERCENT AUTO 7 % (21-46); MONOCYTES ABSOLUTE AUTO 0.76 K/mm3 (0.16-1.47); MONOCYTES PERCENT AUTO 5 % (4-13); Mean Corpuscular HGB 28.1 pg (26.0-34.0); Mean Corpuscular HGB Conc 31.7 g/dL (31.5-36.5); Mean Corpuscular Volume 89 fL (80-100); Mean Platelet Volume 12.1 fL (9.1-12.4); NEUTROPHILS ABSOLUTE AUTO 13.04 K/mm3 (1.96-9.15); NEUTROPHILS PERCENT AUTO 87 % (41-73); Platelet Count 76 K/mm3 (150-400); RDW Coefficient Variation 15.7 % (11.7-14.2); RDW Standard Deviation 51.1 fL (35.1-46.3); Red Blood Cell Count 2.95 M/mm3 (3.80-5.20); White Blood Cell Count 15.01 K/mm3 (4.00-11.30)
[2020-06-07 06:13] LABS: Anion Gap 6 mmol/L (6-16); Blood Urea Nitrogen 47 mg/dL (8-24); Bun/Creatinine Ratio 54.4 (12.0-20.0); CO2, Blood 24 mmol/L (21-32); Calcium, Blood 8.1 mg/dL (8.5-10.1); Chloride, Blood 115 mmol/L (98-108); Creatinine, Blood 0.86 mg/dL (0.40-1.00); Glomerular Filtration Rate >60 (60-); Glucose, Blood 142 mg/dL (70-99); Potassium, Blood 4.3 mmol/L (3.5-5.5); Sodium, Blood 145 mmol/L (136-145)
--- NOTE | 2020-06-07 07:33 | NUR ---
06/07/20 0640 MORE ALERT NOW AND POINTED TO PICTURE GRAPH SAYING SHE NEEDED PAIN AND NAUSEA MED. MEDS GIVEN PER SEP. VITALS STABLE. BLOOD SUGARS FLUCTUATE AND INSULIN HELD PRN. TURNED Q 2 HOURS SIDE TO SIDE.
--- NOTE | 2020-06-07 14:49 | NUR ---
Patient is not very verbal today but she is able to tell me a couple of things. She would like to go home to live with Jo-Ann. She would like me to pray for her (which I gladly provide a prayer for her). She would like me to play soft therapeutic type guitar music. I then go to my office a get my guitar and play for 30 minutes for the patient. As I checked with her between songs she would give me the thumbs up or the OK sign. Patient then quietly voices gratitude for the guitar music. I will continue to try to bring comfort and inspiration to patient.
--- NOTE | 2020-06-07 17:14 | NUR ---
PT HAS AOX2 AND COOPERATIVE OF CARE. PT NEEDS TURNED Q2. PT STARTED WITH WOUND VAC, BUT AFTER CONFERING WITH DR MAST THIS RAMP MANAGER DECIDED A DRESSING FOR HER COCCYX WOUNDS MAY WORK BETTER THE WOUND VAC DRESSING WAS VERY WET AND NOT WORKING WELL. NEW BANDAGES WERE PLACED AND PT TOLERATED WELL. PT TREATED FOR PAIN PER EMAR. WILL CONTINUE TO MONITOR.
--- NOTE | 2020-06-07 19:30 | NUR ---
Awake, HOB elevated. IVF infusing. Instructed not to pull IV out, safety discussed. Call light in reach. Isolation precautions maintained.
--- NOTE | 2020-06-07 21:46 | NUR ---
PT HAVING EMESIS, HOB ELEVATED, SUCTIONED, SINGLE FOLD MACHINE OPERATOR NOTIFIED VEW SCORE 5, ANTIEMETIC ORDERS OBTAINED, MED GIVEN, IVF INFUSING AT KVO. WILL CONT TO ASSESS AND TREAT. CALL LIGHT IN REACH. AFEBRILE, BP WNL, HR ELEVATED AND RESPS AT 30, WILL CONT TO MONITOR AND TREAT,
--- NOTE | 2020-06-07 22:01 | NUR ---
CALL PLACED TO DIRECTOR RADIO NEWS, DUE TO NPO AND N/V AND UNABLE TO KEEP ANYTING DOWN, WILL HOLD INSULIN AND HS MEDS TONIGHT. CALL LIGHT IN REACH
--- NOTE | 2020-06-08 02:45 | NUR ---
vews score improved, dropped to a 2. Later increased to a 3, will reassess VS in 2 hrs. HOB remains elevated, O2 per NC. Will monitor resps as they are still shallow and at 22. Call light in reach
--- NOTE | 2020-06-08 03:52 | NUR ---
SHIFT SUMMARY AWAKE INTERMITTENTLY EARLIER IN THE SHIFT, WITH N/V. RECEIVED ANTIEMETIC AND HAS BEEN RESTING QUIETLY WITH FEW INTERRUPTIONS SINCE. HOB ELEVATED FOR BREATHING COMFORT. DRESSINGS INTACT. REPOSITIONED AND CHANGED FOR COMFORT. IVF OF NS INFUSING AT KVO. RESPS WERE 30 EARLIER IN THE SHIFT, BUT NOW DOWN TO 22 AND PT SEEMS MORE RELAXED THAN BEFORE. CALL LIGHT IN REACH. ISOLATION MAINTAINED.
[2020-06-08 07:35] LABS: Vancomycin, Random 22.3 ug/mL
--- NOTE | 2020-06-08 12:43 | NUR ---
Received call from Chaplain Madsen reporting Pt appears significantly uncomforable. Pt resting in bed upon arrival. Pt is non verbal but does respond to yes or no questions by shaking her head up and down or side to side. Pt appears dyspneic as evidenced by work of breathing and increased respiratory rate. Currently reserations 28/min and on O2 via NC. Pt denies pain at this time but does shake her head up and down indacting yes to the question of anxiety. Offered therapeutic touch and gentle voice. Spoke with Bedside RN ELICEO Degroot and discussed case. Pt appears weaker more lethargic, and appears to be declining. Heart rhythm appears to be attempting to jump to Afib but then goes back to NSR per Supervisor Drying And Softening. HR 110. Called and spoke with Pt's PRADEEP Busch. Jo-Ann agreeable to come visit with Pt and will consider wether Pt should be placed on comfort care. Palliative Care will remain available.
--- NOTE | 2020-06-08 14:36 | NUR ---
F/U Pt visit this afternoon. Pt's friend Jo-Ann (PRADEEP) has arrived to discuss goals of care with Pt. Educated Jo-Ann on comfort care philosophy with V/U made by Jo-Ann. Jo-Ann discusses wishes with Pt. Pt is agreeable to focus on comfort care. Completed POLST with Jo-Ann with Pt's wishes to be DNR and Comfort Measures Only. Offered therapeutic listening and answered questions. Partner Marketing Intern Tena present and offers support as well. Goal will be for Pt to discharge home on Saturday with hospice. Jo-Ann expresses appreciation of visit and reports no other concerns at this time. Spoke with Bedside RN Mikayla and discussed case. Spoke with Dr Blair, Dr Chan, and discussed case. Placed comfort care order, comfort care order set, continued cardiac medications for comfort, and continued IV antibiotics per V/O from both Dr Blair and Dr Chan. Dr Chan signs POLST. Will obtain copies of POLST for medical records, [facility], and transport. Original POLST will go home with Pt. Palliative Care will remain available.
--- NOTE | 2020-06-08 17:51 | NUR ---
Spiritual care note: I met with Kailee's partner, Jo-Ann outside of room with Jarod Moura, palliative care RN. Provided affirmation of love and gentle service counselor to good effect. Jo-Ann spoke to Estela and told us that Estela wanted to focus on comfort throughout remaining hospitalization. Estela appeared frail, lethargic, and only spoke to Jo-Ann. She appears to be nearing end-of-life. Breaths were rapid. Jo-Ann seems to be loving and attentive. I will remain available.
--- NOTE | 2020-06-09 04:41 | NUR ---
SHIFT SUMMARY ASSUMED CARE OF PT AT 1900. PT IS NONVERBAL BUT WILL OPEN HER EYES OCCASIONALLY TO TOUCH OR SOUND. REPIRATIONS ARE EVEN BUT INCREASED, MEDICATED TWICE WITH ROXIANL FOR COMFORT. BANDAGES ON BOTTOM CHANGED THIS SHIFT. CATHETER DRAINING DARK URINE. CALL LIGHT IN REACH, BED IN LOSWEST POSITION, WILL CONTINUE TO MONITOR.
--- NOTE | 2020-06-09 10:44 | NUR ---
Comfort Care Visit Pt resting in bed upon arrival. Lab just finishing attempt to draw Vanco trough without success. Pt non responsive with increased respiratory rate. Assisted Bedside RN Tate with repositioning and wound care. Grimacing noted with repositioning. Pt appears to have transitioned and is actively dying. Called and spoke with Dr Conley and discussed case. D/C antibiotics, cardiac meds, and labs per V/O from Dr Conley. Called and spoke with Jo-Ann. Provided update on Pt's condition. Jo-Ann reports she won't be able to visit with Pt today. Offered emotional support with Jo-Ann reporting no other concerns at this time. Spoke with Garrett Infante, and [facility] Radha Bonilla. Discussed Pt's change in condition and the likely rea of Pt passing here at the hospital. Palliative Care will remain available.
--- NOTE | 2020-06-09 16:15 | NUR ---
COMFORT CARE SHIFT SUMMARY PATIENT MEDICATED X1 FOR AIR HUNGER AN X1 FOR ANXIETY. RESPIRATIONS INCREASED. PATIENT NON-RESPONSIVE BUT WILL OPEN EYES WHEN REPOSITIONED. WOUND CARE COMPLETED. REPOSITIONED Q2. PALLIATIVE AND SPIRITUAL CARE CONSULTING.
--- NOTE | 2020-06-09 18:30 | NUR ---
Spiritual care note: T/C to friend, Jo-Ann. she had questions about arrangements post-mordem. She explained they "have no money for this" and asked me what would happen if "they" did nothing about it or refused to select home. I told her I could not say for certain, but I believe a local home would be called regardless. I provided several contact numbers for homes at Jo-Ann's request. Later, I sat at bedside with Estela, providing presence of love. Estela appeared completely non-responsive to voice or touch. She appears to be nearing end-of-life. Prayer for a peaceful transition provided. Jewelry Appraiser services will remain available.
--- NOTE | 2020-06-09 21:48 | NUR ---
1935 PT NONRESPONSIVE; COMFORT CARE MEASURES.
--- NOTE | 2020-06-10 03:12 | NUR ---
SHIFT SUMMARY: 65 Y/O OBESE FEMALE ON COMFORT CARE MEASURES; PT NON RESPONSIVE, ZERO URINE OUTPUT VIA TAPIA CATHETER; NO FAMILY OR FRIENDS AT SIDE ALL SHIFT; WOUNDS DRESSINGS ARE DRY AND INTACT; CONTACT ISOLATION MAINTAINED; BED LOW POSITION WITH CALL LIGHT AT SIDE.
--- NOTE | 2020-06-10 07:20 | NUR ---
PATIENT IS LAYING IN BED. OXYGEN IS IN PLACE. NO SIGNS OF PAIN ARE NOTED. WILL CONTINUE TO MONITOR
--- NOTE | 2020-06-10 09:44 | NUR ---
PATIENT TREATED FOR DYSPNEA. WILL CONTINUE TO MONITOR.
--- NOTE | 2020-06-10 11:05 | NUR ---
PATIENT REPOSITIONED BY HELPER MARBLE FINISHER AND RN. HELPER MARBLE FINISHER COMPLETED ORAL CARE. HEEL PROTECTOR PLACED ON PATIENT'S LEFT HEEL.
--- NOTE | 2020-06-10 18:12 | NUR ---
CARMELINA IS AT THE BEDSIDE. NO SIGNS OF DISCOMFORT AT THIS TIME. WILL CONTINUE TO MONITOR
--- NOTE | 2020-06-10 18:12 | NUR ---
PATIENT IS UNRESPONSIVE. DYSPNEA TREATED PER EMAR. FAMILY IS AT THE BEDSIDE AT THIS TIME.
--- NOTE | 2020-06-10 21:08 | NUR ---
5 PT ON COMFORT CARE MEASURES; NON RESPONSIVE; NO URINE OUTPUT NOTED VIA TAPIA CATHETER.
--- NOTE | 2020-06-11 02:44 | NUR ---
SHIFT SUMMARY: 65 Y/O OBESE FEMALE ON COMFORT CARE MEASURES; NON RESPONSIVE; REPOSITIONED Q2H BY STAFF; ZERO URINE OUTPUT VIA TAPIA CATHETER; CONTACT PRECAUTIONS MAINTAINED; BED LOW POSITION, BED ALARM APPLIED.
== END 2020-06-11 11:24 | DRG 871 ==
LOC: ER 07:06 → ICUW 10:18 → PCU 06-04 17:50 → ICUE 06-06 05:11 → MEDS 06-07 00:40
PROVIDERS: Emergency Medicine; Internal Medicine Critical Care Medicine; Internal Medicine Pulmonary Disease; Student in an Organized Health Care Education/Training Program; ADMIT Internal Medicine
PROC: 02HV33Z Insertion of Infusion Device into Superior Vena Cava, Percutaneous Approach (ICD-10-PCS; principal; 2020-05-31)
PROC: 3E043XZ Introduction of Vasopressor into Central Vein, Percutaneous Approach (ICD-10-PCS; 2020-05-31)
PROC: 0BH17EZ Insertion of Endotracheal Airway into Trachea, Via Natural or Artificial Opening (ICD-10-PCS; 2020-05-31)
PROC: 5A1945Z Respiratory Ventilation, 24-96 Consecutive Hours (ICD-10-PCS; 2020-05-31)
PROC: 30233N1 Transfusion of Nonautologous Red Blood Cells into Peripheral Vein, Percutaneous Approach (ICD-10-PCS; 2020-06-04)
DX: A41.89 Other specified sepsis (principal); L89.153 Pressure ulcer of sacral region, stage 3; I33.0 Acute and subacute infective endocarditis; R65.21 Severe sepsis with septic shock; J96.21 Acute and chronic respiratory failure with hypoxia; N17.0 Acute kidney failure with tubular necrosis; J18.9 Pneumonia, unspecified organism; I63.9 Cerebral infarction, unspecified; E87.2 Acidosis; G93.40 Encephalopathy, unspecified; M86.69 Other chronic osteomyelitis, multiple sites; I44.2 Atrioventricular block, complete; J44.0 Chronic obstructive pulmonary disease with (acute) lower respiratory infection; E87.1 Hypo-osmolality and hyponatremia; C21.0 Malignant neoplasm of anus, unspecified; C78.6 Secondary malignant neoplasm of retroperitoneum and peritoneum; Z20.828 Contact with and (suspected) exposure to other viral communicable diseases; Z51.5 Encounter for palliative care; I34.0 Nonrheumatic mitral (valve) insufficiency; E66.9 Obesity, unspecified; E11.51 Type 2 diabetes mellitus with diabetic peripheral angiopathy without gangrene; D50.9 Iron deficiency anemia, unspecified; G89.29 Other chronic pain; F32.9 Major depressive disorder, single episode, unspecified; E11.69 Type 2 diabetes mellitus with other specified complication; E11.22 Type 2 diabetes mellitus with diabetic chronic kidney disease; I12.9 Hypertensive chronic kidney disease with stage 1 through stage 4 chronic kidney disease, or unspecified chronic kidney disease; D63.8 Anemia in other chronic diseases classified elsewhere; E87.5 Hyperkalemia; N18.9 Chronic kidney disease, unspecified; G47.33 Obstructive sleep apnea (adult) (pediatric); R13.10 Dysphagia, unspecified; R29.810 Facial weakness; Z66 Do not resuscitate; Z68.30 Body mass index [BMI] 30.0-30.9, adult; Z89.611 Acquired absence of right leg above knee; Z88.8 Allergy status to other drugs, medicaments and biological substances; Z88.0 Allergy status to penicillin; Z86.73 Personal history of transient ischemic attack (TIA), and cerebral infarction without residual deficits; Z99.81 Dependence on supplemental oxygen; Z79.82 Long term (current) use of aspirin; Z79.4 Long term (current) use of insulin; Z79.51 Long term (current) use of inhaled steroids; Z79.899 Other long term (current) drug therapy; Z86.711 Personal history of pulmonary embolism; Z86.718 Personal history of other venous thrombosis and embolism; Z74.01 Bed confinement status
CPT/HCPCS: 0202U; 31500; 31720; 36415; 36430; 36600; 70450; 70496; 70498; 71045; 80047; 80048; 80053; 80202; 81001; 82330; 82803; 82947; 83605; 83735; 83880; 84100; 84132; 84484; 85014; 85025; 86850; 86900; 86901; 86923; 87040; 87086; 87106; 92526; 92610; 93005; 93010; 93308; 93321; 94002; 94003; 94640; 94760; 96361-59; 96365-59; 96366-59; 96367-59; 96376; 97163; 97165; 97530; 99285-25; A9270; A9270-GY; C1751; C9113; J0610; J0713; J1644; J1815; J1940; J1956; J2060; J2248; J2405; J2704; J3010; J3370; J7030; J7050; J7060; P9016; Q9967